=== PATIENT | male | born 1935 | race Caucasian/White ===

== ENCOUNTER 2016-11-16 01:36 | Inpatient (IN) | payer MEDICARE, OTHER ==
[~2016-11-16] VITALS: Ht 177.8 cm; Wt 80.1 kg
[2016-11-16] VITALS (7 sets, daily range): BP systolic 137–159; BP diastolic 62–82; PULSE 66–91; RESP 12–21; O2SAT 95–99
[~2016-11-16 01:36] MED LIST: AMLO10TA3 PO; ASPI-973 PO; INSU100V7 SUBQ; LISI40TA PO; MELA1TAB11 PO; METF500T4 PO; MULT-1018 PO; SIMV10TA PO; [UNRECOGNIZED DRUG - CODE] PO
--- NOTE | 2016-11-16 01:45 | ED.REPORT ---
HPI-Abd Pain M 40 and Over Date of Service Nov 16, 2016 ED Provider: Dr. Carter 81 y/o male with a hx of Myelodysplastic syndrome, HTN and DM presents to the ED complaining of sharp epigastric pain, onset a week ago. Associated sx include mild nausea today and generalized weakness. He took an Aleve an hour ago with little relief. Nursing Notes Stated Complaint: ABDOMINAL PAIN Chief Complaint: Male Abdominal Pain Nursing Notes Reviewed: Yes Allergies: Coded Allergies: fentanyl (Verified Adverse Reaction, Intermediate, Nausea, 11/16/16) Scheduled Amlodipine (Amlodipine) 10 Mg Tablet 10 MG PO DAILY Aspirin (Aspirin) 81 Mg Tablet 81 MG PO DAILY Diphenhydramine HCl (Ez Nite Sleep) 25 Mg Capsule 50 MG PO HS Insulin Glargine (Lantus U100 Insulin Vial) 100 Unit/Ml Vial 18 UNIT SUBQ HS Lisinopril (Lisinopril) 40 Mg Tablet 40 MG PO DAILY Melatonin/Pyridoxine (Melatonin 3 mg Tablet) 1 Each Tablet 1 EACH PO DAILY Metformin (Metformin) 500 Mg Tablet 1,000 MG PO BID Metformin (Metformin) 500 Mg Tablet 500 MG PO NOON Multivitamin (Multi Vitamin Daily) 1 Each Tablet 1 EACH PO DAILY Simvastatin (Zocor) 10 Mg Tablet 10 MG PO HS General Time Seen by MD: 01:44 Chief Complaint Abdominal pain Hx Obtained From: Patient Sudden in Onset?: Yes Onset Occurred: 1 week ago Symptom Duration: Since onset Progression since Onset: Unchanged Location: : Epigastric Quality: Painful Radiation: : Does not radiate Severity: Current: Moderate Severity: Maximum: Moderate Recent Healthcare: No recent doctor visit Similar Sx Previous: No Past Medical History Past Medical History Myelodysplastic syndrome Hypercholesterolemia Arthritis Reports: Diabetes mellitus, Hypertension Past Surgical History Bilateral knee arthroscopy. Reports: Tonsillectomy Smoking History Former Smoker Social History Alcohol Use: 1-3 per day (Wine) Other Social History: Good social support Ambulatory Status Independent Review of Systems Constitutional: Reports: Weakness - generalized GI: Reports: Abdominal pain, Nausea Complete sys rev & neg: except as marked. Physical Exam Initial Vital Signs Vital Signs (First) Date Time Temp Pulse Resp B/P Pulse Ox O2 Delivery O2 Flow Rate FiO2 11/16/16 01:41 36.3 91 18 157/82 99 Room Air Initial VS: Reviewed, Vital signs normal Extremities: Vascular intact, Neuro intact, No swelling, No tenderness Skin: Warm, Dry, No cyanosis Neurologic: Alert, Oriented, Nonfocal General/Constitutional: Awake, Alert, Well hydrated, Cooperative Respiratory / Chest: Atraumatic, Breath sounds NL, Breath sounds = bilat, No respiratory distress, No rales, No rhonchi, No wheezing Cardiovascular: Heart rate NL, Regular rhythm, Heart sounds NL, No gallop, No murmurs, No rubs Abdomen: Atraumatic, Soft, Non-tender Back: Atraumatic, Full range of motion Interpretation & Diagnostics Lab Results Interpretation Result Diagram: 11/16/16 0210 11/16/16 0210 Test 11/16/16 02:10 11/16/16 02:45 White Blood Count 5.5th/mm3 (3.8-10.1) Red Blood Count 2.97mil/mm3 (4.40-5.80) Hemoglobin 9.9g/dL (13.8-17.2) Hematocrit 29.2% (41.0-50.0) Mean Corpuscular Volume 98.3fL (81-100) Mean Corpuscular Hemoglobin 33.3pg (27.0-35.0) Mean Corpuscular Hemoglobin Concent 33.9% (32.0-37.0) Red Cell Distribution Width 13.8% (12.3-15.4) Platelet Count 150bil/L (150-400) Neutrophils (%) (Auto) 38% (40-74) Lymphocytes (%) (Auto) 35% (14-46) Monocytes (%) (Auto) 21% (4-12) Eosinophils (%) (Auto) 0% (0-5) Basophils (%) (Auto) 0% (0-3) Band Neutrophils % 4% (1-5) Metamyelocytes % 2% (0-0) Nucleated Red Blood Cells 2/100 WBC (0-24) Sodium Level 137mEq/L (134-144) Potassium Level 3.9mEq/L (3.5-5.2) Chloride Level 102mEq/L (97-108) Carbon Dioxide Level 19mmol/L (18-29) Blood Urea Nitrogen 25mg/dL (8-27) Creatinine 1.08mg/dL (0.76-1.27) Estimat Glomerular Filtration Rate 69mL/min (>59) Glucose Level 251mg/dL (60-99) Calcium Level 9.0mg/dL (8.5-10.1) Magnesium Level 1.7mg/dL (1.6-2.6) Total Bilirubin 0.3mg/dL (0.0-1.2) Aspartate Amino Transf (AST/SGOT) 16U/L (0-50) Alanine Aminotransferase (ALT/SGPT) 16U/L (0-44) Alkaline Phosphatase 70U/L (25-160) Total Protein 7.0g/dL (6.4-8.4) Albumin 4.1g/dL (3.4-5.0) Lipase 849U/L (13-60) Hold Gonzalez Top Tube Received (Received) Urine Color Yellow (YELLOW) Urine Appearance Clear (CLEAR,HAZY) Urine pH 5.5 (5.0-8.0) Urine Specific [place] 1.020 (1.003-1.035) Urine Protein 30mg/dL (NEG,TRACE) Urine Glucose (UA) >1000mg/dL (NEGATIVE) Urine Ketones Negativemg/dL (NEGATIVE) Urine Occult Blood Negative (NEGATIVE) Urine Nitrite Negative (NEGATIVE) Urine Bilirubin Negative (NEGATIVE) Urine Urobilinogen Normalmg/dL (NORMAL) Urine Leukocyte Esterase Negative (NEGATIVE) Urine RBC 0-2/hpf (0-2) Urine WBC 0-5/hpf (0-5) Urine Epithelial Cells Occasional/hpf (NONE-MOD) Urine Crystals None seen (NONE SEEN) Urine Bacteria Moderate/hpf (NONE-FEW) Urine Hyaline Casts None/lpf (NONE) Urine Granular Casts None seen (NONE SEEN) Urine Waxy Casts None seen (NONE SEEN) Urine Red Blood Cell Casts None seen (NONE SEEN) Urine White Blood Cell Casts None seen (NONE SEEN) Urine Mucus Present (None Seen) Urine Trichomonas None seen (NONE SEEN) Urine Yeast None (NONE SEEN) Urine Culture Reflexed Indicated Urine SP gravity = 1.015 Urine pH = 5 Urine leukocytes = trace Urine protein = ++ Urine glucose = 1000 Lab Results Interpretation: Mild anemia, elevated nonfasting glucose, pancreatitis. ECG Interpretation ECG Interpretation: Normal sinus rhtyhm. Rate 86. Frequent PVCs Time: 01:50 Interpreted by: ED physician X-Ray Chest Interpretation Chest Xray Interpretation: Result: Normal. no acute cardiopulmonary disease. View: Portable, AP & lat Interpretation / Wet Read by: Wet read ED physician CT Abd / Pelvis Interpretation Conclusion: Mild pancreatitis with no pseudocyst or phlegmon. No cholelithiasis or choledocholithiasis. Diverticulosis with no evidence of diverticulitis. Signed by Dr. Grover Carson M.D. 11/16/16 03:48 Interpretation / Wet Read by: Interpret - Radiologist Re-Eval/Medical Decision Med Decision/Clinical Course 1-year-old male with abdominal pain for the last couple of days. He is found to have elevated lipase 849, without associated elevation of transaminases or white blood count. He admits to drinking one glass of wine a day. He does have a history of elevated lipase on 1 previous occasion. He has no known gallbladder disease. CT scan shows no evidence of pseudocyst or phlegmon. He will be admitted to the hospitalist service for conservative management. Source of Hx: Old records Time of Eval: 03:10 Re-Evaluation/Progress Note: Rechecked pt. Discussed lab results, diagnosis and plan to admit. The pt understands and agrees with the plan. All questions answered. Consultation : Referral / Consult Name: Leon Pham MD Consulted With: Hospitalist Call Returned at: 03:22 Dye Machine Tender: Will see patient, Agrees with eval, Agrees with plan, Accepts admit Counseled Regarding: Diagnosis, Lab results, Need for admission Discharge & Departure Primary Impression: Pancreatitis Disposition: ADMITTED TO HOSPITAL Vital Signs - All Vital Signs Date Time Temp Pulse Resp B/P Pulse Ox O2 Delivery O2 Flow Rate FiO2 11/16/16 03:12 72 12 137/62 96 Room Air 11/16/16 01:41 36.3 91 18 157/82 99 Room Air )( All Prior VS Reviewed: Yes Referrals: Enrique Macedo MD (PCP) Scribe Attestation Portions of this note were transcribed by David Nuñez. I, , personally performed the history, physical exam and medical decision-making;I reviewed and confirmed the accuracy of the information in the transcribed note. Signed by Debbie Saldivar. 11/16/16 03:50 copies to: Enrique Macedo MD, Howard L MD Nov 16, 2016 01:45 David Nuñez Nov 16, 2016 01:55
[2016-11-16] MEDS ORDERED: Pantoprazole 4 mg/mL 10 mL Inj IVPUSH ONE (01:55)
[2016-11-16] MEDS ORDERED: 0.9% Sodium Chloride 1,000 ML IV ONE (01:55)
[2016-11-16] MEDS ORDERED: Ondansetron 2 mg/mL 2 mL Inj IVPUSH PRN (01:55)
[2016-11-16 02:33] LABS: Mean Corpuscular Hemoglobin 33.3 pg (27.0-35.0); Mean Corpuscular Volume 98.3 fL (81-100); Platelet Count 150 bil/L (150-400)
[2016-11-16 02:51] LABS: BASOPHILS % (AUTO) 0 % (0-3); EOSINOPHILS % (AUTO) 0 % (0-5); MONOCYTES % (AUTO) 21 % (4-12); NEUTROPHILS % (AUTO) 38 % (40-74)
[2016-11-16 02:55] LABS: Magnesium 1.7 mg/dL (1.6-2.6)
[2016-11-16 03:13] LABS: APPEARANCE,URINE CLEAR (CLEAR,HAZY); COLOR,URINE YELLOW (YELLOW); OCCULT BLOOD,URINE NEGATIVE (NEGATIVE); PH,URINE 5.5 (5.0-8.0); UROBILINOGEN,URINE NORMAL (NORMAL)
--- NOTE | 2016-11-16 03:46 | PCM.HPMED ---
Subjective Date of Service Nov 16, 2016 Primary Provider: Admitting Physician: Primary Care Physician: Enrique Macedo MD Attending Physician: Admit Status: From the Emergency Department Chief Complaint: Abdominal pain History of Present Illness: This is a 81-year-old male with past medical history significant for myelodysplastic syndrome, hypertension, diabetes type II who presents today for abdominal pain. The pain is present in the left upper quadrant of the abdomen and began one week ago. The pain is described as sharp and nonradiating. It has been constant for one week. When the pain first began it was associated with one day of chills which have since resolved. He is also had associated symptoms of nausea and fatigue. He does have a history of one episode of pancreatitis in the past. He drinks one glass of alcohol per day. He states that his pain has resolved since one dose of pantoprazole. He denies any chest pain or pressure, shortness of breath, vomiting, diarrhea. Initial vital signs in the emergency department were temperature 36.3, pulse 91 , respiratory rate 18, blood pressure 157/82, satting at 90% on room air. Initial laboratory values showed WBC 5.5, hemoglobin 9.9, hematocrit 29.2, and platelet 150. Glucose 251. Lipase was 849. EKG showed sinus rhythm with ventricular bigeminy and Qtc of 485. CT Abdomen and pelvis nighthawk reading: mild pancreatitis with no pseudocyst or phlegmon, no cholelithiasis or choledocholithiasis, diverticulosis with no evidence of diverticulitis. He was given a bolus of NS and pantoprazole 40mg. Review of Systems: A comprehensive review of systems was conducted with the patient and found to be negative except as above in the History of Present Illness. Allergies Coded Allergies: fentanyl (Verified Adverse Reaction, Intermediate, Nausea, 11/16/16) Home Medications amlodipine 10 mg tablet take 1 tablet (10MG) by ORAL route every day aspirin 81 mg Tab take 1 tablet (81MG) by ORAL route every day cyanocobalamin (vit B-12) 1,000 mcg tablet take 1 tablet by oral route every day Lantus Solostar 100 unit/mL (3 mL) subcutaneous insulin pen inject 18 units nightly at bedtime for diabetes. lisinopril 40 mg tablet take 1 tablet (40MG) by ORAL route every day metformin 1,000 mg tablet take 1 tablet (1000MG) by oral route 2 times every day with morning and evening meals multivitamin tablet take 1 tablet by oral route every day with food Noritate 1 % Topical Cream apply by TOPICAL route every day a thin layerto the affected area(s) pen needle, diabetic 31 gauge x 1/3" use to inject insulin daily or as directed Precision Xtra Monitor use to test blood sugars every day Precision Xtra Test strips use to test blood sugars twice every day Zocor 10 mg tablet take 1 tablet (10MG) by ORAL route every day in the evening PMH Diabetes mellitus type II Hyperlipidemia Hypertension Coronary disease Myelodysplastic syndrome History of neutropenia GERD Surgical History Bilateral knee surgery Cataract removal Tonsillectomy Family History Family history of prostate cancer in 3 of his brothers. Mother: Esophageal cancer. Maternal grandfather pancreatic cancer. Social History Occupation: patient is retired [employer] Hx Alcohol Use: Yes (glass of wine daily ) Hx Substance Use: No Hx Tobacco Use: Yes (quit in 1959) Smoking Status: Former Smoker Exam Vital Signs Vital Sign - Last Date Time Temp Pulse Resp B/P Pulse Ox O2 Delivery O2 Flow Rate FiO2 11/16/16 03:12 72 12 137/62 96 Room Air 11/16/16 01:41 36.3 Intake and Output 11/15/16 11/15/16 11/16/16 Cumulative From/Thru 15:00 23:00 07:00 11/16/16 01:41 - 11/16/16 02:19 Intake Total 1000 ml 1000 ml Balance 1000 ml 1000 ml Intake IV Total 1000 ml 1000 ml Exam General: No acute distress, well-developed, well-nourished, appropriately interactive HEENT: Normocephalic, atraumatic. External ears without defect. Pupils equal, round, and reactive to light and accommodation. Anicteric sclerae, moist conjunctivae, and no lid lag. Oropharynx free of erythema and cobble stoning with moist mucosa. Neck: Supple with full range of motion. No jugular venous distension. No bruits. No lymphadenopathy or thyromegaly. Cardiovascular: Regular rate and rhythm with no murmurs, rubs, or gallops appreciated Pulmonary: Clear to auscultation bilaterally with no crackles, wheezes, or rhonchi. Normal respiratory effort with no use of accessory muscles. Abdomen: Bowel tones present. Soft, nontender, nondistended. No hepatosplenomegaly or masses appreciated. Extremities: No clubbing, cyanosis, edema, or lymphadenopathy appreciated. Skin: Normal temperature, turgor, and texture; no rash, ulcers, or subcutaneous nodules appreciated. Neurological: Cranial nerves grossly intact. Normal muscle strength, tone, and bulk. Reflexes, coordination, and sensory function within normal limits. No known gait impairment. Psychiatric: Normal mood and affect. Lab and Diagnostics Result Diagram: 11/16/1620911/16/16209 X-Rays, CTs and MRIs CT abdomen and pelvis: CT Abdomen and pelvis nighthawk reading on 11/16/2016: mild pancreatitis with no pseudocyst or phlegmon, no cholelithiasis or choledocholithiasis, diverticulosis with no evidence of diverticulitis. Prominent prostate gland. Assessment & Plan This is a 81-year-old male with past medical history significant for 1 episode of pancreatitis, [facility] 2, hypertension, hyperlipidemia, and neutropenia who presents today for abdominal pain. The abdominal pain is present in the midepigastric region. Lipase is a 49. This is likely pancreatitis. CT scan of abdomen shows mild pancreatitis and prominent prostate gland..pancreatitis etiology includes mechanical such as gallstones, alcohol, hyperlipidemia, viral , medication induced, trauma. Medication pt is on that have been associated with pancreatitis: Class 1a Simvastatin. Class III Lisinopril, Metformin Acute pancreatitis, presumed remission, ongoing: -Lipase 849. Left upper quadrant abdominal pain. -LR at 50 mL per hour. -Patient will be nothing by mouth. -Continue Pantoprazole 40mg daily. -Morphine for pain control. -Consider GI consult. Chronic anemia, present on admission, stable: -CBC on 08/06/2016 showed a hemoglobin of 11.7. CBC today showed hemoglobin of 9.9. -He denies any hematochezia or melena -Continue to monitor. Diabetes mellitus type II, present remission, ongoing: -Blood glucose level 250 on admit. -Placed onto Humalog medium dose correction scale. -We will continue Lantus. -Hold metformin as this has been associated with pancreatitis. Hypertension, present on admission, stable: -Continue on amlodipine. Hold lisinopril due to association with pancreatitis. -Hold aspirin for now. Hyperlipidemia, present on admission, stable: -Hold Zocor as this is a class I drug-induced pancreatitis medication. -Lipid panel ordered Neutropenia, present on admission, stable: -Neutrophil percent on 08/06/2016 17.5 and on admit 38. -Continue to monitor. DVT prophylaxis with enoxaparin. Patient is admitted under inpatient status with expected length of stay greater than 2 midnights due to severity of presenting symptoms, risk of adverse event, and complexity of treatment plan. Pain Evaluation: Adequate Pain Control Resuscitation Status: CPR: Attempt Resuscitation Attending Statement The patient was seen and examined together with Dr. Randle on 11/16 and I agree with the history, exam and plan as outlined in the note above. Dale Randle DO Nov 16, 2016 03:46 Leon Pham MD Nov 16, 2016 04:50
[2016-11-16] MEDS ORDERED: Alum-Mag Hydrox-Simeth 30 mL Suspension PO PRN (04:20)
[2016-11-16] MEDS ORDERED: Glucose 40% Oral Gel 15 Gm Tube PO PRN (04:20)
[2016-11-16] MEDS ORDERED: HYDROcodone-APAP 5-325 mg Tablet PO PRN (04:20)
[2016-11-16] MEDS ORDERED: Polyethylene Glycol (PEG) 17 Gm Powder PO PRN (04:20)
[2016-11-16] MEDS ORDERED: Dextrose 10% 250 ML IV PRN (04:40)
[2016-11-16] MEDS: Lactated Ringer's 1,000 ML IV SCH ×3 (04:59→17:56)
--- NOTE | 2016-11-16 06:11 | NUR ---
Admit Note Pt. arrived on floor around 0440. Pt. is alert and oriented x3. Pt. denies pain or nausea. Pt's peripheral IV intact and patent. IV fluids started. Will continue to monitor.
[2016-11-16] MEDS: Insulin LISPRO 300 Unit/3 mL Inj SUBQ SCH ×4 (08:00→21:16)
--- NOTE | 2016-11-16 08:52 | DRSVH ---
PROCEDURE: X-RAY CHEST, TWO VIEWS ([id number]) INDICATIONS: left lower chest pain TECHNIQUE: 2 views of the chest were acquired. COMPARISON: [facility], , CHEST 2VW, 04/20/2009, 19:41. FINDINGS: Surgical changes and devices: None. Lungs and pleura: No pleural effusions or pneumothorax. Lungs are clear. Mediastinum: Mediastinal contours are normal. Heart size is normal. Bones and chest wall: No suspicious bony abnormalities. No displaced rib fractures. Soft tissues a ppear unremarkable. IMPRESSION: 1. No acute cardiopulmonary disease. Dictated by: Junior Christy M.D. on 11/16/2016 at 8:49 Approved by: Junior Christy M.D. on 11/16/2016 at 8:50
--- NOTE | 2016-11-16 08:53 | DRSVH ---
PROCEDURE: CT ABDOMEN AND PELVIS WITH CONTRAST ([id number]) INDICATIONS: pancreatitis TECHNIQUE: After the administration of intravenous contrast, 5 mm thick sections acquired from the diaphragm to the symphysis. 5 mm coronal and sagittal reformats were acquired. For radiation dose reduction, the following was used: automated exposure control, adjustment of mA and/or kV according to patient siz e. COMPARISON: None. FINDINGS: Image quality: Excellent. ABDOMEN: Lung bases: Lung bases are clear. Heart size is normal. Solid organs: Liver and spleen are normal in size and enhancement. Gallbladder is within normal [place] its. Biliary system is non dilated. Pancreas enhances normally. Mild inflammatory changes noted adj acent to the body of the pancreas compatible with acute pancreatitis. Scattered calcifications noted in the body of the pancreas compatible with sequela of chronic pancreatitis. No adrenal nodules. Kid neys demonstrate normal size and enhancement, without hydronephrosis. Right renal cyst is noted. Peritoneum and bowel: Bowel loops demonstrate normal wall thickness and caliber. Scattered colonic d iverticuli without evidence of diverticulosis. No free fluid or air. The appendix is normal. Nodes and vessels: No retroperitoneal or mesenteric adenopathy by size criteria. Aorta and inferior vena cava are normal in size. Scattered atherosclerotic calcifications involving the abdominal and p elvic vasculature. Miscellaneous: No ventral hernias. PELVIS: Genitourinary: Bladder wall thickness is normal. Prostate is enlarged. Miscellaneous: No inguinal hernias or adenopathy. Bones: No suspicious bony lesions. No vertebral body compression fractures. Spine degenerative disc disease and facet arthropathy. IMPRESSION: 1. Findings compatible with mild acute pancreatitis. 2. Prostate gland enlargement. Recommend urology consultation. 3. Colonic diverticulosis without evidence of diverticulitis. Dictated by: Keysha Treviño MD, PhD on 11/16/2016 at 8:46 Approved by: Keysha Treviño MD, PhD on 11/16/2016 at 8:52
--- NOTE | 2016-11-16 10:47 | NUR ---
Social Work: Initial Assessment D: EMR reviewed. Pt is a 81 y/o male admitted for pancreatitis per H&P. SAMANTHA met with pt at bedside to conduct initial assessment. Pt was alert and oriented x3. SW explained role and wrote phone number on white board. SW confirmed pt has completed DPOA/advanced directive ppw and has provided a copy to the hospital. Pt's insurance is Medicare and [employer]. Pt's PCP is Enrique Macedo MD. Pt has no Hx of HH or SNF. Pt has no LTC or VA insurance. Pt is independent with ADLs. Pt does not use or own any DME. Pt drives. Pt is independent at baseline. Pt lives is a single-story, level home with no steps. Pt confirmed spouse will provide transport home when pt is medically stable. Pt gave consent for SW to contact spouse/DPOA, Minal Velasco, ([phone]) for discharge planning - if necessary. SAMANTHA does not anticipate any discharge needs at this time but will continue to follow if needs arise. A: Pt who is independent at baseline. P: SW confirmed pt's spouse will provide transport home via POV when pt is medically stable. SW does not anticipate any discharge needs at this time but will continue to follow if needs arise. WILLY Finnegan Addendum: 11/16/16 at 1054 by ISIDORO JUDD SS Amended: Links added.
[2016-11-16] MEDS ORDERED: Pantoprazole 4 mg/mL 10 mL Inj IVPUSH SCH (16:00)
[2016-11-16] MEDS ORDERED: Insulin GLARgine 100 Unit/mL Syringe SUBQ SCH (21:00)
--- NOTE | 2016-11-16 23:21 | NUR ---
Activity/Pain/Blood Glucose On initial assessment, patient stated abdominal pain at a 2/10 on pain scale. Refused pain medication. Advised patient to call for pain medication if needed. Patient's blood sugar at 2100 was 228. Lantus and Humalog administered. Patient resting comfortably. Call light within reach. Care continues.
[2016-11-17 00:09] VITALS: BP 150/74; PULSE 78; RESP 20; O2SAT 97
[2016-11-17] MEDS: Lactated Ringer's 1,000 ML IV SCH ×2 (00:19→06:59)
[2016-11-17 04:50] VITALS: BP 153/71; PULSE 76; RESP 16; O2SAT 97
[2016-11-17 05:18] VITALS: PULSE 76
[2016-11-17 05:20] LABS: Mean Corpuscular Hemoglobin 33.7 pg (27.0-35.0); Mean Corpuscular Volume 99.6 fL (81-100); Platelet Count 130 bil/L (150-400)
[2016-11-17 05:39] LABS: Magnesium 1.7 mg/dL (1.6-2.6); NEUTROPHILS % (AUTO) 44 % (40-74)
[2016-11-17 05:40] LABS: BASOPHILS % (AUTO) 0 % (0-3); EOSINOPHILS % (AUTO) 0 % (0-5); MONOCYTES % (AUTO) 11 % (4-12)
[2016-11-17] MEDS: Insulin LISPRO 300 Unit/3 mL Inj SUBQ SCH ×2 (08:00→13:06)
[2016-11-17 09:37] VITALS: BP 161/71; PULSE 80; RESP 19; O2SAT 97
[2016-11-17 10:13] VITALS: PULSE 82
--- NOTE | 2016-11-17 10:20 | NUR ---
Social Work: Readiness for Discharge D: EMR reviewed. Pt is on day 1 of hospitalization. Per MD in AM multi-disciplinary rounds, pt will discharge today. SW does not anticipate any discharge needs at this time but will continue to follow if needs arise. A: Pt who is independent at baseline. P: SW confirmed pt's spouse will provide transport home via POV when pt is medically stable. SW does not anticipate any discharge needs at this time but will continue to follow if needs arise. WILLY Finnegan
[2016-11-17] MEDS ORDERED: Lisinopril 40 Tablet PO SCH (11:45)
--- NOTE | 2016-11-17 13:37 | PCM.DIMED ---
Discharge Instructions Date of Service Nov 17, 2016 Dates of Hospitalization Nov 16, 2016 at 03:51 Discharge Diagnosis Discharge Diagnosis acute pancreatitis Diet Discharge Diet: Other (slowely advance your diet, avoid large fatty meal for now) Activity Discharge Activity: No restrictions Call your provider Call your provider for: Vomitting, Other Patient Instructions Patient Instructions You were hospitalized with acute pancreatitis. You were supportively treated, symptoms were greatly improved. Please follow up with your primary doctor as scheduled. Please avoid alcohol drinking as possible culprit trigger for your pancreas inflammation. Follow-up Provider: Enrique Macedo MD Follow-up with PCP in: 2 weeks Simone Chew MD Nov 17, 2016 13:37
--- NOTE | 2016-11-17 14:16 | NUR ---
Social Work: Discharge D: EMR reviewed. Pt is on day 1 of hospitalization. Per MD in AM multi-disciplinary rounds, pt will discharge today. SW does not anticipate any discharge needs at this time but will continue to follow if needs arise. A: Pt who is independent at baseline. P: SW confirmed pt's spouse will provide transport home via POV today. SW does not anticipate any discharge needs at this time but will continue to follow if needs arise. WILLY Finnegan
--- NOTE | 2016-11-17 14:58 | PCM.DC.MED ---
Discharge Summary Date of Service Nov 17, 2016 Dates of Hospitalization Date of Hospital Admission Nov 16, 2016 at 03:51 Date of Discharge: Nov 17, 2016 Providers: Admitting Physician: Leon Pham MD Primary Care Physician: Enrique Macedo MD Attending Physician: Leon Pham MD Diagnosis at Time of Discharge Diagnosis at Time of Discharge acute pancreatitis Procedures XRay, CTs & MRIs CT abdomen and pelvis: CT Abdomen and pelvis nighthawk reading on 11/16/2016: mild pancreatitis with no pseudocyst or phlegmon, no cholelithiasis or choledocholithiasis, diverticulosis with no evidence of diverticulitis. Prominent prostate gland. Brief History History of present illness obtained on December 16 by This is a 81-year-old male with past medical history significant for myelodysplastic syndrome, hypertension, diabetes type II who presents today for abdominal pain. The pain is present in the left upper quadrant of the abdomen and began one week ago. The pain is described as sharp and nonradiating. It has been constant for one week. When the pain first began it was associated with one day of chills which have since resolved. He is also had associated symptoms of nausea and fatigue. He does have a history of one episode of pancreatitis in the past. He drinks one glass of alcohol per day. He states that his pain has resolved since one dose of pantoprazole. He denies any chest pain or pressure, shortness of breath, vomiting, diarrhea. Initial vital signs in the emergency department were temperature 36.3, pulse 91 , respiratory rate 18, blood pressure 157/82, satting at 90% on room air. Initial laboratory values showed WBC 5.5, hemoglobin 9.9, hematocrit 29.2, and platelet 150. Glucose 251. Lipase was 849. EKG showed sinus rhythm with ventricular bigeminy and Qtc of 485. CT Abdomen and pelvis nighthawk reading: mild pancreatitis with no pseudocyst or phlegmon, no cholelithiasis or choledocholithiasis, diverticulosis with no evidence of diverticulitis. He was given a bolus of NS and pantoprazole 40mg. Hospital Course This is a 81-year-old male with past medical history significant for 1 episode of pancreatitis, [facility], hypertension, hyperlipidemia, and neutropenia who presents today for abdominal pain. The abdominal pain is present in the midepigastric region. Lipase is a 49. This is likely pancreatitis. CT scan of abdomen shows mild pancreatitis and prominent prostate gland..pancreatitis etiology includes mechanical such as gallstones, alcohol, hyperlipidemia, viral , medication induced, trauma. Medication pt is on that have been associated with pancreatitis: Class 1a Simvastatin. Class III Lisinopril, Metformin acute dx: Acute pancreatitis, CT showed signs of pancreatitis, lipase was [address] showed Gallbladder is within normal limits. Biliary system is non dilated. Pancreas enhances normally. Mild inflammatory changes noted adjacent to the body of the pancreas compatible with acute pancreatitis. Scattered calcifications noted in the body of the pancreas compatible with sequela of chronic pancreatitis. patient was started on LR50cc, increased to 150cc, lipase decreased to 100s. Pain was minimal, diet was advanced to soft, tolerated well. It was Given patient's remote hx, -Lipase 849. Left upper quadrant abdominal pain. -LR at 50 mL per hour. -Patient will be nothing by mouth. -Continue Pantoprazole 40mg daily. -Morphine for pain control. -Consider GI consult. Chronic anemia, present on admission, stable: -CBC on 08/06/2016 showed a hemoglobin of 11.7. CBC today showed hemoglobin of 9.9. -He denies any hematochezia or melena -Continue to monitor. Diabetes mellitus type II, present remission, ongoing: -Blood glucose level 250 on admit. -Placed onto Humalog medium dose correction scale. -We will continue Lantus. -Hold metformin as this has been associated with pancreatitis. Hypertension, present on admission, stable: -Continue on amlodipine. Hold lisinopril due to association with pancreatitis. -Hold aspirin for now. Hyperlipidemia, present on admission, stable: -Hold Zocor as this is a class I drug-induced pancreatitis medication. -Lipid panel ordered Neutropenia, present on admission, stable: -Neutrophil percent on 08/06/2016 17.5 and on admit 38. -Continue to monitor. DVT prophylaxis with enoxaparin. Patient is admitted under inpatient status with expected length of stay greater than 2 midnights due to severity of presenting symptoms, risk of adverse event, and complexity of treatment plan. Exam Vital Signs (Last) Date Time Temp Pulse Resp B/P Pulse Ox O2 Delivery O2 Flow Rate FiO2 11/17/16 10:13 82 11/17/16 09:37 37.0 19 161/71 97 Room Air Test 11/16/16 02:10 11/16/16 02:45 11/16/16 04:55 11/17/16 05:00 Nucleated Red Blood Cells 2/100 WBC (0-24) Hemoglobin A1c 8.8% (4.8-5.6) Hold Gonzalez Top Tube Received (Received) Urine Color Yellow (YELLOW) Urine Appearance Clear (CLEAR,HAZY) Urine pH 5.5 (5.0-8.0) Urine Specific [place] 1.020 (1.003-1.035) Urine Protein 30mg/dL (NEG,TRACE) Urine Glucose (UA) >1000mg/dL (NEGATIVE) Urine Ketones Negativemg/dL (NEGATIVE) Urine Occult Blood Negative (NEGATIVE) Urine Nitrite Negative (NEGATIVE) Urine Bilirubin Negative (NEGATIVE) Urine Urobilinogen Normalmg/dL (NORMAL) Urine Leukocyte Esterase Negative (NEGATIVE) Urine RBC 0-2/hpf (0-2) Urine WBC 0-5/hpf (0-5) Urine Epithelial Cells Occasional/hpf (NONE-MOD) Urine Crystals None seen (NONE SEEN) Urine Bacteria Moderate/hpf (NONE-FEW) Urine Hyaline Casts None/lpf (NONE) Urine Granular Casts None seen (NONE SEEN) Urine Waxy Casts None seen (NONE SEEN) Urine Red Blood Cell Casts None seen (NONE SEEN) Urine White Blood Cell Casts None seen (NONE SEEN) Urine Mucus Present (None Seen) Urine Trichomonas None seen (NONE SEEN) Urine Yeast None (NONE SEEN) Urine Culture Reflexed Indicated Triglycerides Level 100mg/dL (0-149) Cholesterol Level 78mg/dL (100-199) LDL Cholesterol, Calculated 37.000mg/dL (0-99) VLDL Cholesterol 20.000mg/dL HDL Cholesterol 21mg/dL (>39) Cholesterol/HDL Ratio 3.71 (0.0-4.4) White Blood Count 4.0th/mm3 (3.8-10.1) Red Blood Count 2.73mil/mm3 (4.40-5.80) Hemoglobin 9.2g/dL (13.8-17.2) Hematocrit 27.2% (41.0-50.0) Mean Corpuscular Volume 99.6fL (81-100) Mean Corpuscular Hemoglobin 33.7pg (27.0-35.0) Mean Corpuscular Hemoglobin Concent 33.8% (32.0-37.0) Red Cell Distribution Width 13.8% (12.3-15.4) Platelet Count 130bil/L (150-400) Neutrophils (%) (Auto) 44% (40-74) Lymphocytes (%) (Auto) 36% (14-46) Monocytes (%) (Auto) 11% (4-12) Eosinophils (%) (Auto) 0% (0-5) Basophils (%) (Auto) 0% (0-3) Band Neutrophils % 8% (1-5) Metamyelocytes % 2% (0-0) Hematology Comments Sodium Level 142mEq/L (134-144) Potassium Level 3.7mEq/L (3.5-5.2) Chloride Level 106mEq/L (97-108) Carbon Dioxide Level 21mmol/L (18-29) Blood Urea Nitrogen 11mg/dL (8-27) Creatinine 0.93mg/dL (0.76-1.27) Estimat Glomerular Filtration Rate 82mL/min (>59) Glucose Level 107mg/dL (60-99) Calcium Level 8.7mg/dL (8.5-10.1) Magnesium Level 1.7mg/dL (1.6-2.6) Total Bilirubin 0.4mg/dL (0.0-1.2) Aspartate Amino Transf (AST/SGOT) 16U/L (0-50) Alanine Aminotransferase (ALT/SGPT) 13U/L (0-44) Alkaline Phosphatase 71U/L (25-160) Total Protein 6.0g/dL (6.4-8.4) Albumin 3.7g/dL (3.4-5.0) Lipase 143U/L (13-60) Discharge Medications Discharge Medications Amlodipine (Amlodipine) 10 Mg Tablet 10 MG PO DAILY (Reported) Aspirin (Aspirin) 81 Mg Tablet 81 MG PO DAILY (Reported) Insulin Glargine (Lantus U100 Insulin Vial) 100 Unit/Ml Vial 18 UNIT SUBQ HS ( Reported) Lisinopril (Lisinopril) 40 Mg Tablet 40 MG PO DAILY (Reported) Melatonin/Pyridoxine (Melatonin 3 mg Tablet) 1 Each Tablet 1 EACH PO DAILY ( Reported) Metformin (Metformin) 500 Mg Tablet 1,000 MG PO BID (Reported) Multivitamin (Multi Vitamin Daily) 1 Each Tablet 1 EACH PO DAILY (Reported) Simvastatin (Zocor) 10 Mg Tablet 10 MG PO HS (Reported) Followup Plan Discharge Diet: Other (slowely advance your diet, avoid large fatty meal for now) Discharge Activity: No restrictions Patient Instructions You were hospitalized with acute pancreatitis. You were supportively treated, symptoms were greatly improved. Please follow up with your primary doctor as scheduled. Please avoid alcohol drinking as possible culprit trigger for your pancreas inflammation. Follow-up Provider: Enrique Macedo MD Follow-up with PCP in: 2 weeks Simone Chew MD Nov 17, 2016 14:58
--- NOTE | 2016-11-17 15:48 | NUR ---
Discharge Patient discharged home with this afternoon. Patient given verbal and written home care instructions and agreed to understanding them. Patient will follow up with primary Dr in 2 weeks and will return if symptoms come back or worsen.
== END 2016-11-17 14:45 | disposition home or self-care (01) | DRG 440 ==
LOC: SED 01:36 → OSC 03:51
PROVIDERS: ADMIT Hospitalist; ATTEND Hospitalist
DX: K85.90 Acute pancreatitis without necrosis or infection, unspecified (principal); Z79.82 Long term (current) use of aspirin; Z79.4 Long term (current) use of insulin; Z79.84 Long term (current) use of oral hypoglycemic drugs; Z87.891 Personal history of nicotine dependence; D64.9 Anemia, unspecified; E11.9 Type 2 diabetes mellitus without complications; I10 Essential (primary) hypertension; E78.5 Hyperlipidemia, unspecified; D70.9 Neutropenia, unspecified

== ENCOUNTER 2016-11-20 14:53 | Observation (INO) | payer MEDICARE, OTHER ==
[~2016-11-20] VITALS: Ht 177.8 cm; Wt 80.4 kg
[2016-11-20] VITALS (13 sets, daily range): BP systolic 109–158; BP diastolic 51–72; PULSE 69–92; RESP 16–21; O2SAT 96–100
[~2016-11-20 14:53] MED LIST changes: -[UNRECOGNIZED DRUG - CODE] PO
[2016-11-20 15:51] LABS: BASOPHILS % (AUTO) 0.2 % (0-3)
--- NOTE | 2016-11-20 15:54 | ED.REPORT ---
HPI-Chest Pain 40 and Over Date of Service Nov 20, 2016 ED Provider: Vin Carreon MD Pt is a 81 year old male with a history of type II DM, HTN, hyperlipidemia, CAD , recent pancreatitis, and myelodysplastic syndrome who presents to the ED complaining of left upper chest pain that radiates into his left shoulder that started prior to arrival. Pt c/o associated nausea. He denies dyspnea and diaphoresis. Per spouse, they were in [place] when the pt said he had to go sit in the car because he wasn't feeling well. Per spouse, the pt reported that he was feeling chest pain prior to arrival. He denies any history of heart disease or heart attacks although the chart indicates a history of CAD. His last heart stress test was normal on 04/2009. Pt was admitted to [facility] after presenting to the ED on 11/16/16 with abdominal pain and was diagnosed with acute pancreatitis. Nursing Notes Stated Complaint: CHEST PAIN Chief Complaint: Chest Pain Nursing Notes Reviewed: Yes Allergies: Coded Allergies: fentanyl (Verified Adverse Reaction, Intermediate, Nausea, 11/20/16) Scheduled Amlodipine (Amlodipine) 10 Mg Tablet 10 MG PO DAILY Aspirin (Aspirin) 81 Mg Tablet 81 MG PO DAILY Insulin Glargine (Lantus U100 Insulin Vial) 100 Unit/Ml Vial 18 UNIT SUBQ HS Lisinopril (Lisinopril) 40 Mg Tablet 40 MG PO DAILY Melatonin/Pyridoxine (Melatonin 3 mg Tablet) 1 Each Tablet 1 EACH PO DAILY Metformin (Metformin) 500 Mg Tablet 1,000 MG PO BID Multivitamin (Multi Vitamin Daily) 1 Each Tablet 1 EACH PO DAILY Simvastatin (Zocor) 10 Mg Tablet 10 MG PO HS General Time Seen by MD: 15:53 Chief Complaint Chest pain Hx Obtained From: Patient Arrived By: Walk-in Sudden in Onset?: No Onset Occurred: Just prior to arrival Symptom Duration: Since onset Location: : Chest left Quality: Painful Radiation: : Shoulder left Migration/Movement: Reports: None Severity: Current: Moderate Severity: Maximum: Moderate Recent Healthcare: Recent doctor visit Similar Sx Previous: No Risk Factors HEART Score HEART for MACE: Mod index of susp (1), Normal ECG (0), Age 65 or over (2), 1-2 CAD risk factors (1), < or = to NL troponin (0) HEART for MACE Score: 4-7 (mod risk 12%-16.6%) Past Medical History Past Medical History Myelodysplastic syndrome Hypercholesterolemia Arthritis Pancreatitis Reports: Coronary artery disease, Diabetes mellitus, Hypertension Past Surgical History Bilateral knee arthroscopy. Reports: Tonsillectomy Smoking History Former Smoker (Very remote) Social History Alcohol Use: 1-3 per day Other Social History: Good social support Ambulatory Status Independent Review of Systems Constitutional: Denies: Chills, Fever Respiratory: Denies: Non-productive cough, Pleuritic pain, Shortness of breath Cardiovascular: Reports: Chest pain Musculoskeletal: Reports: Extremity pain Complete sys rev & neg: except as marked. Physical Exam Initial Vital Signs Vital Signs (First) Date Time Temp Pulse Resp B/P Pulse Ox O2 Delivery O2 Flow Rate FiO2 11/20/16 15:03 36.7 92 16 143/72 98 Room Air Initial VS: Reviewed, Vital signs normal Head / Eyes: Atraumatic, Normocephalic, PERRL ENT: Mucous membranes moist, Conjunctiva normal, No scleral icterus Neck: Supple, Full range of motion Extremities: Vascular intact, Neuro intact Skin: Warm, Dry, No cyanosis Neurologic: Alert, Oriented, Nonfocal Psychiatric: Mood/affect normal, Behavior normal General/Constitutional: Awake, Alert, No acute distress, Cooperative, Not toxic appearing Respiratory / Chest: Atraumatic, Breath sounds NL, Breath sounds = bilat, No respiratory distress No chest pain with palpation Cardiovascular: Heart rate NL, Regular rhythm, Heart sounds NL Abdomen: Atraumatic, Soft, Non-tender Interpretation & Diagnostics Lab Results Interpretation Result Diagram: 11/20/16 1535 11/20/16 1535 Test 11/20/16 15:35 White Blood Count 6.2th/mm3 (3.8-10.1) Red Blood Count 2.86mil/mm3 (4.40-5.80) Hemoglobin 9.4g/dL (13.8-17.2) Hematocrit 28.8% (41.0-50.0) Mean Corpuscular Volume 100.7fL (81-100) Mean Corpuscular Hemoglobin 32.9pg (27.0-35.0) Mean Corpuscular Hemoglobin Concent 32.6% (32.0-37.0) Red Cell Distribution Width 13.8% (12.3-15.4) Platelet Count 141bil/L (150-400) Neutrophils (%) (Auto) 55.1% (40-74) Lymphocytes (%) (Auto) 20.7% (14-46) Monocytes (%) (Auto) 18.1% (4-12) Eosinophils (%) (Auto) 0.3% (0-5) Basophils (%) (Auto) 0.2% (0-3) Sodium Level 136mEq/L (134-144) Potassium Level 4.3mEq/L (3.5-5.2) Chloride Level 103mEq/L (97-108) Carbon Dioxide Level 18mmol/L (18-29) Blood Urea Nitrogen 30mg/dL (8-27) Creatinine 1.50mg/dL (0.76-1.27) Estimat Glomerular Filtration Rate 48mL/min (>59) Glucose Level 405mg/dL (60-99) Calcium Level 9.4mg/dL (8.5-10.1) Magnesium Level 1.6mg/dL (1.6-2.6) Total Bilirubin 0.4mg/dL (0.0-1.2) Aspartate Amino Transf (AST/SGOT) 21U/L (0-50) Alanine Aminotransferase (ALT/SGPT) 20U/L (0-44) Alkaline Phosphatase 84U/L (25-160) Troponin T < 0.010ug/L (0.0-0.011) Total Protein 7.0g/dL (6.4-8.4) Albumin 4.2g/dL (3.4-5.0) Lipase 111U/L (13-60) Hold Gonzalez Top Tube Received (Received) ECG Interpretation ECG Interpretation: Sinus rhythm with a rate of 89 Ventricular premature complex Nonspecific intraventruclar conduction delay Time: 15:12 Interpreted by: ED physician X-Ray Chest Interpretation Chest Xray Interpretation: IMPRESSION: Stable chest. No acute cardiopulmonary process is evident. Dictated by: Paresh Hilario M.D. on 11/20/2016 at 15:11 View: Portable, AP & lat Interpretation / Wet Read by: Interpret - Radiologist Re-Eval/Medical Decision Source of Hx: Old records Time of Eval: 16:51 Patient Status: Condition unchanged Re-Evaluation/Progress Note: Pt rechecked. His chest pain is still present. Informed pt of plan for admission. Pt understands and agrees with plan for admission. All questions addressed. Consultation : Referral / Consult Name: Georgie Granda DO Call Returned at: 17:12 Helper Driver: Will see patient, Agrees with eval, Agrees with plan, Accepts admit Counseled Regarding: Diagnosis, Lab results, Need for admission Discharge & Departure Primary Impression: Chest pain Chest pain type: unspecified Qualified Code: R07.9 - Chest pain, unspecified Disposition: ADMITTED TO HOSPITAL Discharge Condition All VS Reviewed: Yes Condition: Stable Referrals: Enrique Macedo MD (PCP) Elliibe Attestation Portions of this note were transcribed by Aman Jarquin and Melony Middleton. I, Dr. Carreon personally performed the history, physical exam and medical decision-making; I reviewed and confirmed the accuracy of the information in the transcribed note. Signed by: Aman Jarquin and Debbie Villela, 11/20/16 and 17:00. copies to: Enrique Macedo MD, Kirk H MD Nov 20, 2016 15:54 Melony Macias Nov 20, 2016 16:04 AMAN JARQUIN Nov 20, 2016 17:03 AMAN JARQUIN Nov 20, 2016 17:03
--- NOTE | 2016-11-20 16:13 | DRSVH ---
PROCEDURE: X-RAY CHEST, TWO VIEWS ([id number]) INDICATIONS: chest pain TECHNIQUE: 2 views of the chest were acquired. COMPARISON: [facility], CR, XR CHEST 2VW, 11/16/2016, 2:08. FINDINGS: Surgical changes and devices: None. Lungs and pleura: No pleural effusions or pneumothorax. Lungs are clear. Mediastinum: Mediastinal contours are normal. Heart size is normal. There is aortic atherosclerosi s. Bones and chest wall: No suspicious bony abnormalities. There appears to be chondrocalcinosis of th e right shoulder. Mild to moderate degenerative changes of the imaged spine and shoulders are incide ntally noted. Soft tissues appear unremarkable. IMPRESSION: Stable chest. No acute cardiopulmonary process is evident. Dictated by: Paresh Hilario M.D. on 11/20/2016 at 15:11 Approved by: Paresh Hilario M.D. on 11/20/2016 at 15:11
[2016-11-20 16:17] LABS: TROPONIN T < 0.010 ug/L (0.0-0.011)
[2016-11-20 16:19] LABS: EOSINOPHILS % (AUTO) 0.3 % (0-5); MONOCYTES % (AUTO) 18.1 % (4-12); Mean Corpuscular Hemoglobin 32.9 pg (27.0-35.0); Mean Corpuscular Volume 100.7 fL (81-100); NEUTROPHILS % (AUTO) 55.1 % (40-74); Platelet Count 141 bil/L (150-400)
[2016-11-20 16:27] LABS: Lipase 111 U/L (13-60); Magnesium 1.6 mg/dL (1.6-2.6)
[2016-11-20] MEDS ORDERED: Heparin 5,000 Unit/mL Inj IVPUSH PRN ×2 (17:00→17:20)
[2016-11-20] MEDS ORDERED: Heparin 5,000 Unit/mL Inj IVPUSH ONE (17:00)
[2016-11-20] MEDS ORDERED: Heparin 25K Unit/500mL 0.45 NS 25,000 UNIT in IV Premix 1 EACH IV SCH ×2 (17:00→17:20)
[2016-11-20] MEDS ORDERED: Ondansetron 2 mg/mL 2 mL Inj IVPUSH ONE (17:00)
[2016-11-20] MEDS ORDERED: Nitroglycerin 2% 1 Gm Ointment TOPICAL SCH (17:05)
[2016-11-20] MEDS ORDERED: 0.9% Sodium Chloride 1,000 ML IV SCH (17:19)
[2016-11-20] MEDS ORDERED: Atropine 1 mg/10 mL (Code) Syringe IVPUSH PRN (17:20)
[2016-11-20] MEDS ORDERED: Polyethylene Glycol (PEG) 17 Gm Powder PO PRN (17:20)
[2016-11-20] MEDS ORDERED: Alum-Mag Hydrox-Simeth 30 mL Suspension PO PRN ×2 (17:20→17:25)
[2016-11-20] MEDS ORDERED: Ondansetron 2 mg/mL 2 mL Inj IVPUSH PRN ×2 (17:20→17:25)
[2016-11-20] MEDS ORDERED: Senna-Docusate 8.6-50 mg Tablet PO PRN (17:20)
[2016-11-20] MEDS ORDERED: CYAN500 PO (18:16)
[2016-11-20] MEDS ORDERED: METF1000 PO (18:16)
[2016-11-20 18:22] LABS: Creatine Kinase 56 U/L (21-232)
--- NOTE | 2016-11-20 18:36 | PCM.HPMED ---
Subjective Date of Service Nov 20, 2016 Primary Provider: Admitting Physician: Primary Care Physician: Enrique Macedo MD Attending Physician: Admit Status: From the Emergency Department Chief Complaint: "chest pain" History of Present Illness: Mr. Velasco is an 81 year old man with history of diabetes mellitus type II, hypertension, hyperlipidemia, recent pancreatitis, and myelodysplastic syndrome who presented to the hospital for upper chest pain that radiates into his left shoulder that started around 02:30 PM. He got lightheaded while walking around shopping with his , which he describes as feeling tired and exhausted but not like he was going to pass out. He then went to his car to rest. He was sitting in the car in the passenger seat when the chest pain started. He reports that he woke up this morning and felt "blah" all day. His pain has been constant since it started and an 8/10. It does not get worse with movements or inspiration. It improved after nitroglycerin paste to a 4/10. He also had some mild nausea and dyspnea, which have resolved. It is different from the pain that he had with pancreatitis. He has never had pain like this before. He exercises regularly and did not have chest pain or dyspnea with exercise. He does not have diaphoresis, palpitations, leg edema, abdominal pain, numbness, tingling, focal weakness, trouble speaking, trouble swallowing, melena, hematochezia, bruising, rashes, nasal congestion, sore throat, or cough. He was constipated during last hospitalization, but it has improved. He has had urinary frequency but no dysuria. In the emergency department, he continued to have chest pain which improved after nitroglycerin paste was applied but did not resolve. EKG did not have concerning ST segment changes. Initial troponin was negative. Chest x-ray did not show any acute cardiopulmonary changes. He was also given a full dose of aspirin, metoprolol tartrate 25 mg, and a dose of ondansetron. Review of Systems: A comprehensive review of systems was conducted with the patient and found to be negative except as above in the History of Present Illness. Allergies Coded Allergies: fentanyl (Verified Adverse Reaction, Intermediate, Nausea, 11/20/16) Home Medications Brandon Velasco [id number] 1935 06/07/2016 08:40 AM 1/5 Medication Name Directions amlodipine 10 mg tablet take 1 tablet (10MG) by ORAL route every day aspirin 81 mg Tab take 1 tablet (81MG) by ORAL route every day cyanocobalamin (vit B-12) 1,000 mcg tablet take 1 tablet by oral route every day Lantus Solostar 100 unit/mL (3 mL) subcutaneous insulin pen inject 18 units nightly at bedtime for diabetes. lisinopril 40 mg tablet take 1 tablet (40MG) by ORAL route every day metformin 1,000 mg tablet take 1 tablet (1000MG) by oral route 2 times every day with morning and evening meals multivitamin tablet take 1 tablet by oral route every day with food Noritate 1 % Topical Cream apply by TOPICAL route every day a thin layerto the affected area(s) pen needle, diabetic 31 gauge x 1/3" use to inject insulin daily or as directed Precision Xtra Monitor use to test blood sugars every day Precision Xtra Test strips use to test blood sugars twice every day Zocor 10 mg tablet take 1 tablet (10MG) by ORAL route every day in the evening PMH Diabetes mellitus type II on metformin and insulin Hypertension Hyperlipidemia Pancreatitis Myelodysplastic syndrome not taking any treatment and stable Gastroesophageal reflux disease Prostate enlargement Surgical History Bilateral knee surgery (arthroscopic) Bilateral cataract removal Tonsillectomy Family History Father side is unknown because his father is estranged Mother had esophageal cancer, maternal grandfather pancreatic cancer, and 3 brothers with prostate cancer Social History Occupation: Retired [employer] Hx Alcohol Use: Yes (Glass of wine a day quit after last stay) Hx Substance Use: No Hx Tobacco Use: Yes (quit in 1959) Smoking Status: Former Smoker (Very remote quit ) Living Arrangement: with Family Exam Vital Signs Vital Sign - Last Date Time Temp Pulse Resp B/P Pulse Ox O2 Delivery O2 Flow Rate FiO2 11/20/16 16:51 87 20 158/57 99 Room Air 11/20/16 15:03 36.7 Exam General: Elderly man lying in bed comfortably in no acute distress who appears younger than stated age, well-developed, well-nourished, appropriately interactive HEENT: Normocephalic, atraumatic. External ears without defect. Pupils equal, round, and reactive to light and accommodation. Anicteric sclerae, moist conjunctivae, and no lid lag. Oropharynx free of erythema and cobble stoning with moist mucosa. Neck: Supple with full range of motion. No jugular venous distension. Right carotid bruit. No lymphadenopathy or thyromegaly. Cardiovascular: Regular rate and rhythm with no murmurs, rubs, or gallops appreciated Pulmonary: Clear to auscultation bilaterally with no crackles, wheezes, or rhonchi. Normal respiratory effort with no use of accessory muscles. Abdomen: Bowel tones present. Soft, nontender, nondistended. No hepatosplenomegaly or masses appreciated. Extremities: No clubbing, cyanosis, or edema appreciated. Skin: Normal temperature, turgor, and texture; no rash, ulcers, or subcutaneous nodules appreciated. Neurological: Cranial nerves grossly intact. Normal muscle strength, tone, and bulk. Coordination and sensory function within normal limits. No known gait impairment. Psychiatric: Normal mood and affect. Alert and oriented to person, place, and time. Lab and Diagnostics Result Diagram: 11/20/16 1535 11/20/16 1535 X-Rays, CTs and MRIs PROCEDURE: X-RAY CHEST, TWO VIEWS IMPRESSION: Stable chest. No acute cardiopulmonary process is evident. Approved by: Paresh Hilario M.D. on 11/20/2016 at 15:11 12-lead ECG Sinus rhythm, premature ventricular contraction, non-specific intraventricular conduction delay Assessment & Plan Mr. Velasco is an 81 year old man with history of diabetes mellitus type II, hypertension, hyperlipidemia, recent pancreatitis, and myelodysplastic syndrome who presented to the hospital for upper chest pain Possible unstable angina, acute, present on admission, active. - EKG does not have concerning ST segment changes and initial troponin negative. He has chest pain rest, which improved with nitroglycerin. He was given a loading dose of aspirin and a dose of metoprolol tartrate. He has hypertension, hyperlipidemia, and diabetes mellitus. - Differential diagnosis includes but not limited to: unstable angina, GERD, recurrent pancreatitis, pneumonia, or pulmonary embolism. He has history of GERD and was hospitalized for pancreatitis 4 days ago. CXR did not show acute pulmonary changes. He does not have leg pain or swelling and his pain is not pleuritic. - Continue to trend troponin and CK-MB - EKGs as needed for chest pain - Nitroglycerin and morphine as needed for pain - Heparin drip per cardiac protocol - Aspirin 81 mg once daily, continue lisinopril 40 mg once daily, atorvastatin 40 mg once daily at bedtime, metoprolol 12.5 mg twice daily - Echocardiogram ordered for tomorrow morning and will consider further work up based on the results of echocardiogram as well as troponin levels Recent pancreatitis, subacute, present on admission, active. - Hospitalized 11/16/16 to 11/17/16 for acute pancreatitis and lipase was [address] scan showed mild pancreatitis. Etiology uncertain. - Lipase elevated at 111, improved compared to previous hospitalization and no abdominal pain today. - Continue to monitor Diabetes mellitus type II on metformin and insulin, chronic. - HgbA1c 8.8% on 11/16/16 - Glargine insulin 15 units at bedtime with low dose correctional scale for now - Hold home metformin for now - Monitor and adjust accordingly Essential hypertension, chronic. - Continue amlodipine 10 mg and lisinopril 40 mg once daily - Start metoprolol tartrate 12.5 mg BID - Continue lisinopril 40mg QD - Hold Metoprolol, amlodipine, and lisinopril in the AM for possible stress test Hyperlipidemia, chronic. - LDL 37, HDL 21 on 11/16/16 - Switched to atorvastatin 40 mg once daily at bedtime Myelodysplastic syndrome, chronic. - Follows with oncology, not currently actively being treated and stable - Chronic stable anemia and stable thrombocytopenia Gastroesophageal reflux disease, chronic. - Maalox as needed Acetaminophen as needed for pain or fever Miralax and Senna as needed for constipation Zofran as needed for nausea or vomiting CODE STATUS: FULL CODE Patient Status: Patient is admitted under observation status with expected length of stay less than 2 midnights due to risk of adverse event. VTE Prophylaxis: Other (heparin drip) Resuscitation Status: CPR: Attempt Resuscitation Time spent 60 minutes Attending Statement The patient was seen and examined together with Dr. Lenz on 11/20/16 and I have added additional information to the note above. Sissy Lenz DO Nov 20, 2016 17:34 Georgie Granda DO Nov 21, 2016 17:34
[2016-11-20] MEDS ORDERED: Glucose 40% Oral Gel 15 Gm Tube PO PRN (19:20)
[2016-11-20] MEDS ORDERED: Insulin GLARgine 100 Unit/mL Syringe SUBQ SCH (21:00)
[2016-11-20] MEDS: Insulin LISPRO 300 Unit/3 mL Inj SUBQ SCH (21:20)
[2016-11-20] MEDS: Sodium Chloride LOK Flush 10 mL Syringe IVFLUSH SCH (21:55)
[2016-11-20 22:53] LABS: Creatine Kinase 48 U/L (21-232)
[2016-11-21 03:11] LABS: Mean Corpuscular Hemoglobin 32.9 pg (27.0-35.0); Mean Corpuscular Volume 101.6 fL (81-100); Platelet Count 112 bil/L (150-400)
[2016-11-21 03:37] LABS: TROPONIN T 0.01 ug/L (0.0-0.011)
[2016-11-21 03:39] LABS: BASOPHILS % (AUTO) 0 % (0-3); EOSINOPHILS % (AUTO) 0 % (0-5); MONOCYTES % (AUTO) 2 % (4-12); NEUTROPHILS % (AUTO) 42 % (40-74)
--- NOTE | 2016-11-21 06:00 | NUR ---
Admit/CP Pt arrived on unit at 2004. Pt was able to ambulate to bed and scale with steady gait. A&Ox3. Pt states CP continues at 5/10 despite nitro paste. Pt describes as ache that spreads across chest from shoulder to shoulder. Does not change with palpation or inspiration. VSS. EKG done, no changes, shows SR with 1st degree. Nitro tabs given x2 with no change. Morphine given per orders, pain decreased to 4/10. BP remains stable. Maalox given as well. Additional dose of Morphine given. Pain down to 2/10. Call to Dr. Wilmer MD made aware of status. Additional troponin ordered. Heparin gtt running per protocol. On Tele. Pt later states that pain is localized to left shoulder with 8/10 pain and pain is pinpointed and palpable, worse with pressure. MD made aware. Pt medicated with Tylenol per MD orders. Admission completed by pt verbal history, see flowsheet for full assessment.
[2016-11-21 06:01] VITALS: BP 113/60; PULSE 71; RESP 18; O2SAT 98
[2016-11-21 07:45] VITALS: BP 119/54; PULSE 64; RESP 16; O2SAT 95
[2016-11-21] MEDS: Insulin LISPRO 300 Unit/3 mL Inj SUBQ SCH ×3 (09:22→17:46)
[2016-11-21] MEDS: Sodium Chloride LOK Flush 10 mL Syringe IVFLUSH SCH ×2 (09:23→17:45)
[2016-11-21 11:03] VITALS: PULSE 67
[2016-11-21 11:35] VITALS: BP_SYST 157; BP_SYST 164; BP_DIAS 67; BP_DIAS 71; PULSE 70; RESP 20; O2SAT 98
[2016-11-21 11:36] LABS: APPEARANCE,URINE HAZY (CLEAR,HAZY); COLOR,URINE YELLOW (YELLOW); OCCULT BLOOD,URINE NEGATIVE (NEGATIVE); PH,URINE 5.5 (5.0-8.0); UROBILINOGEN,URINE NORMAL (NORMAL)
--- NOTE | 2016-11-21 13:51 | PCM.PNMED ---
Subjective Date of Service Nov 21, 2016 Subjective Mr. Velasco is an 81 year old man with history of diabetes mellitus type II, hypertension, hyperlipidemia, recent pancreatitis, and myelodysplastic syndrome who presented to the hospital for upper chest pain. This morning, he reports that his chest pain resolved. He only has left shoulder tenderness when he pushes on a certain spot. It felt better after Tylenol. He does not have dyspnea or palpitations. Exam Vital Signs Vital Sign - Last Date Time Temp Pulse Resp B/P Pulse Ox O2 Delivery O2 Flow Rate FiO2 11/21/16 11:35 36.6 70 20 157/71 98 Room Air Intake and Output 11/20/16 11/20/16 11/21/16 Cumulative From/Thru 15:00 23:00 07:00 11/20/16 15:03 - 11/21/16 06:11 Intake Total 750 ml 750 ml Output Total 600 ml 600 ml Balance 150 ml 150 ml Intake Oral 750 ml 750 ml Output Urine Total 600 ml 600 ml Exam General: Elderly man lying in bed comfortably in no acute distress who appears younger than stated age, well-developed, well-nourished, appropriately interactive HEENT: Normocephalic, atraumatic. . Neck: Supple with full range of motion. Cardiovascular: Regular rate and rhythm with no murmurs, rubs, or gallops appreciated Pulmonary: Clear to auscultation bilaterally with no crackles, wheezes, or rhonchi. Normal respiratory effort with no use of accessory muscles. Abdomen: Bowel tones present. Soft, nontender, nondistended. Extremities:Tenderpoint at left acromion. No clubbing, cyanosis, or edema appreciated. Skin: Normal temperature, turgor, and texture; no rash or ulcers appreciated. Neurological: Cranial nerves grossly intact. Grossly normal muscle strength, tone, and bulk. Psychiatric: Normal mood and affect. Alert and oriented to person, place, and time. IVs and Medications Medications Reviewed: Medications were reviewed in detail Lab and Diagnostics Result Diagram: 11/21/16 0900 11/21/16 0229 X-Rays, CTs and MRIs PROCEDURE: X-RAY CHEST, TWO VIEWS IMPRESSION: Stable chest. No acute cardiopulmonary process is evident. Approved by: Paresh Hilario M.D. on 11/20/2016 at 15:11 12-lead ECG Sinus rhythm, premature ventricular contraction, non-specific intraventricular conduction delay Assessment & Plan Mr. Velasco is an 81 year old man with history of diabetes mellitus type II, hypertension, hyperlipidemia, recent pancreatitis, and myelodysplastic syndrome who presented to the hospital for upper chest pain Possible unstable angina, acute, present on admission, resolved. - EKG does not have concerning ST segment changes and initial troponin negative. He has chest pain rest, which improved with nitroglycerin. He was given a loading dose of aspirin and a dose of metoprolol tartrate. He has hypertension, hyperlipidemia, and diabetes mellitus. He has history of GERD and was hospitalized for pancreatitis 5 days ago. CXR did not show acute pulmonary changes. He does not have leg pain or swelling and his pain is not pleuritic. He had tenderness to palpation at his left acromion, so there is a possible musculoskeletal component. - Troponin negative times 3 - EKGs as needed for chest pain - Nitroglycerin and morphine as needed for pain - Stopped heparin drip per cardiac protocol - Aspirin 81 mg once daily, continue lisinopril 40 mg once daily, atorvastatin 40 mg once daily at bedtime - Avoid beta blockers and calcium channel blockers as pt has first degree AV block - Hold morning medications for stress test this afternoon - Echocardiogram performed and results pending - NPO until cardiac stress test performed - Exercise stress test with nuclear imaging today Recent pancreatitis, subacute, present on admission, active. - Hospitalized 11/16/16 to 11/17/16 for acute pancreatitis and lipase was [address] scan showed mild pancreatitis. Etiology uncertain. - Lipase elevated at 111, improved compared to previous hospitalization and no abdominal pain today. - Continue to monitor Diabetes mellitus type II on metformin and insulin, chronic. - HgbA1c 8.8% on 11/16/16 - Glargine insulin 15 units at bedtime with low dose correctional scale for now - Hold home metformin for now - Monitor and adjust accordingly Essential hypertension, chronic. - Continue lisinopril 40 mg once daily - Hold amlodipine for now Hyperlipidemia, chronic. - LDL 37, HDL 21 on 11/16/16 - Switched to atorvastatin 40 mg once daily at bedtime Myelodysplastic syndrome, chronic. - Follows with oncology, not currently actively being treated and stable - Chronic stable anemia and stable thrombocytopenia Gastroesophageal reflux disease, chronic. - Maalox as needed Acetaminophen as needed for pain or fever Miralax and Senna as needed for constipation Zofran as needed for nausea or vomiting VTE Prophylaxis: Other (heparin drip) Resuscitation Status: CPR: Attempt Resuscitation Sissy Lenz DO Nov 21, 2016 13:39
--- NOTE | 2016-11-21 14:15 | NUR ---
Social Work Note: Initial Assessment Data& Assessment: EMR reviewed. Pt is a readmit. Brandon Velasco is a 81 year old male admitted on 11/20/2016 for chest pain. SW met with pt and pt at bedside to discuss discharge planning and assess for any unmet needs, SW role explained. SW phone number written on pt whiteboard. Pt has Medicare and [employer] insurance coverage. Pt sees Enrique Macedo MD for primary care. Pt acknowledged that he is a readmission but explained that they were for "difference reasons." Pt denies any needs at home that would be helpful or any follow up appointments that would benefit him that he did not already have in place. SW to follow for potential MD orders if they arise. Pt lives in [place] with his and is independent with all ADL's and no DME. Pt does not have SNF or HH hx. Pt does not have LTC insurance. Pt is a but does not believe he is service connected. Pt DPOA/Advance Directive paperwork is completed, SW requested a copy. Pt to transport pt home when medically ready. Pt and pt deny any other needs. No other discharge needs identified at this time. SW to continue to follow if any needs arise. Plan: Anticipated discharge home via POV when medically ready. No other discharge needs identified at this time. SW to continue to follow if any needs arise. WILLY Bryant Addendum: 11/21/16 at 1422 by JANET CALVERT Amended: Links added.
--- NOTE | 2016-11-21 15:36 | NUR ---
Off floor to CVL Pt off floor to CVL at approximately 1430. Pt SL, sneakers and shorts on, tele to be removed. in room. Care continues.
--- NOTE | 2016-11-21 16:59 | DRSVH ---
[facility] [address] [place] [address] Echocardiogram Report Name: GIO ZARATE LStudy Sven e: 11/21/2016 Height: 70 in Hospital Exam Location: [facility] Weight: 177 lb Gender: Male BSA: 2.0 m2 : 1935 Age: 81 yrs BP: 113/60 mmHg Reason For Study: UNSTABLE ANGINA Ordering Physician: HOSPITALIST [facility] Performed By: Kristian Taveras Referring Physician: Enrique Macedo Interpretation Summary The ejection fraction is estimated to be 60-65%. There is mild mitral regurgitation. The aortic valve is slightly calcified. There is no hemodynamically significant valvular aortic stenosis. There is mild tricuspid regurgitation. The right ventricular systolic pressure is estimated at 26 mmHg assuming a right atrial pressure of 3 mm Hg. Compared to the prior echo report on 2008, there is no significant change. Procedure: A two-dimensional transthoracic echocardiogram with color flow and Doppler was performed. The study quality was technically adequate. Comparison is made with the echocardiogram of 05/02/09. The patient was in normal sinus rhythm during the exam. Left Ventricle: The left ventricle is normal in size. There is normal left ventricular wall thickness. The ejection fraction is estimated to be 60-65%. There are no focal wall motion abnormalities. Right Ventricle: Borderline right ventricular enlargement. The right ventricular systolic function is normal. Atria: There is moderate biatrial enlargement. The interatrial septum is intact with no evidence for an atrial septal defect. Mitral Valve: The mitral valve is normal in structure and function. There is mild mitral regurgitation. Aortic Valve: The aortic valve is trileaflet. The aortic valve is slightly calcified. There is no hemodynamically significant valvular aortic stenosis. No aortic regurgitation is present. Tricuspid Valve: The tricuspid valve is normal in structure and function. There is mild tricuspid regurgitation. The right ventricular systolic pressure is estimated at 26 mmHg assuming a right atrial pressure of 3 mm Hg. Pulmonic Valve: The pulmonic valve is normal in structure and function. There is trace pulmonic regurgitation. Great Vessels: The aortic root is normal size. The dimensions of the ascending aorta are normal. The pulmonary artery is normal size. The IVC is of normal diameter and collapses greater than 50% with a sniff. This suggests a low right atrial pressure of 3 mm Hg. Pericardium/ Pleura There is no pericardial effusion. There is no pleural effusion. MMode/2D Measurements & Calculations LVIDd: 5.2 cm LA dimension: 4.5 cm RA long axis LVOT diam: 2.2 cm LVIDs: 3.2 cm Ao root diam FS: 37.1 % LA A2 area: 22.7 cm RA area EPSS: 0.67 cm LA A4 area: 30.7 cm Aortic Jxn: 2.5 cm IVSd: 0.84 cm LA length (vol) : 24.9 cm asc Aorta Diam LVPWd: 0.94 cm RA vol LA vol: 88.5 ml : 89.4 ml Ao Arch Diam (Prox LA vol index RA Trans): 3.2 cm : 45.1 mm2 IVC diam: 1.8 cm LV hutchison. diameter/BSA LV sys. diameter/BSA RVD1 (basal) RVD2 (mid): 4.3 cm (cm/m^2): 2.6 (cm/m^2): 1.6 Doppler Measurements & Calculations Ao V2 max MV E max edmundo MV E/A: 0.79 TR max edmundo : 164.4 cm/sec : 76.0 cm/sec Med Peak E' Edmundo : 239.2 cm/sec Ao max P.8 mmHg MV A max edmundo TR max PG Ao mean P.6 mmHg : 96.4 cm/sec E/E' med: 16.0 : 22.9 mmHg LVOT Max Edmundo Pulm A Revs Dur PA V2 max : 104.8 cm/sec : 82.8 cm/sec MV A dur PA mean PG MICHAEL(I,D): 2.7 cm : 0.17 sec sev ratio: 0.72 PA Accel Time : 0.10 sec MV dec time: 0.16 secAo V2 mean LV V1 max PG PA V2 mean : 123.8 cm/sec : 61.7 cm/sec Ao V2 VTI: 37.8 cm LV V1 VTI PA pr(Accel) : 27.2 cm : 31.6 mmHg MICHAEL(V,D): 2.4 cm2 MICHAEL indexed to BSA Pulm Anne-Marie Guardados Dur - MV A (cm^2/m^2): 1.4 Dur: -0.08 msec Electronically signed by: Zoran Hector on Reading Physician:11/21/2016 04:58 PM
--- NOTE | 2016-11-21 17:26 | DRSVH ---
PROCEDURE: 1 DAY TREADMILL STRESS TEST Rest and exercise myocardial perfusion SPECT with gated imaging and ejection fraction RADIOPHARMACEUTICAL: 7.3 mCi Tc-99m tetrafosmin IV at rest and 25.2 mCi Tc-99m tetrafosmin IV at peak exercise. Etk-mae-gntblhcm was performed. INDICATIONS: 81 year-old man with chest pain. The patient has hypertension, hyperlipidemia and diabe héctor. Evaluate for myocardial ischemia TECHNIQUE: Radiopharmaceutical was injected at peak stress test, and also at rest. SPECT images wer e obtained. SPECT myocardial perfusion images were displayed in short axis, horizontal long axis, an d vertical long axis views. Gated images were reviewed using Auto[employer] software. COMPARISON: [facility], [place], KEY PERF SPECT MULTI (PN), 04/27/2009, 13:17. CARDIAC STRESS: A standard Kurt treadmill exercise tolerance test was performed by the patient under the supervision of an attending staff. The patient exercised for 2 minutes and 48 seconds; functional aerobic impai rment (OTIS) is +15 %. Hemodynamic data: There is normal blood pressure and heart rate response to exercise stress. Patien t achieved 91% of maximum predicted heart rate at peak exercise. Symptoms: Patient denied chest pain during exercise. EKG: No diagnostic EKG changes of ischemia; frequent PVCs. FINDINGS: Raw data: There is good myocardial labeling by radiotracer. No significant motion artifacts. Left ventricle function: Gated images demonstrate normal left ventricle wall thickening. No segment al wall motion abnormality. No transient ischemic dilation. The left ventricle resting end-diastoli c volume is normal. Left ventricle stress ejection fraction is 68%; normal values are above 45%. Myocardial perfusion: There is normal distribution of activity in the left and right ventricular key cardium. No fixed or reversible perfusion defects. Comparison to prior examinations: Compared to the last admission on 04/27/2001, there is no significa nt change. IMPRESSION: 1. Normal myocardial perfusion images. 2. Normal left ventricular volume and systolic function. 3. [id number] reduced exercise capacity. No chest pain or diagnostic EKG changes for ischemia . PQRS ATTESTATIONS: Measure 322 - Is this imaging test primarily performed on a low-risk surgery patient for preoperative evaluation within 30 days preceding their low-risk non-cardiac surgery? Low-risk surgery is defined as cardiac or myocardial infarction less than 1%, including (but not limited to) endoscopic pr ocedures, superficial procedures, cataract surgery, and excisional breast surgery: Answer: No Measure 323 - Is this imaging test performed primarily for the monitoring of an asymptomatic patient who had percutaneous coronary intervention on the visit date or within 2 years of the visit date? An swer: No Measure 324 - Is this imaging test performed primarily for the initial detection and risk assessment on an asymptomatic, low coronary heart disease patient? Low CHD risk definition = clinicians should consider the maximum number of available patient factors used to estimate risk based on [place] (A TP III criteria), typically age, gender, diabetes, smoking status, and use of blood pressure medicati on, and integrate age appropriate estimates for missing elements, such as LDL or standard blood press ure. Answer: No Dictated by: Ben Vega M.D. on 11/21/2016 at 17:19 Approved by: Ben Vega M.D. on 11/21/2016 at 17:25
[2016-11-21] MEDS ORDERED: NITR0.4T SL (17:31)
--- NOTE | 2016-11-21 17:35 | PCM.DIMED ---
Sissy Lenz DO 11/21/16 1735: Discharge Instructions Date of Service Nov 21, 2016 Dates of Hospitalization Nov 20, 2016 at 19:09 Discharge Diagnosis Discharge Diagnosis You had chest pain and based on the work up done today, your heart is not likely the cause of the pain. Diet Discharge Diet: Heart Healthy, Diabetic Activity Discharge Activity: Limited until seen by PCP Call your provider Call your provider for: Fever or Chills, Shortness of breath, Bleeding, Chest pain, Vomitting, Excessive diarrhea, Weakness (unilateral) Patient Instructions Patient Instructions Stop amlodipine. The EKG, or tracing of your heart's rhythm, showed a first degree block. Follow up with a material stress tester about your high blood pressure medications. Continue all of your other medications as prescribed. I have also given you a prescription for nitroglycerin sublingual tablets. If you have chest pain, dissolve 1 tablet underneath your tongue. You can repeat this every 5 minutes for a maximum of 3 times. Please call 911 or seek medical attention. Follow up with your primary care provider in 7-10 days to review your hospital stay. Follow-up Provider: Enrique Macedo MD Follow-up with PCP in: 1 week [facility] Follow-up in: Other (first available provider) Georgie Granda DO 11/22/16 1859: Discharge Instructions Attending's Statement The patient was seen and examined together with Dr. Lenz on 11/21/16 and I agree with the history, exam and plan as outlined in the note above. Sissy Lenz DO Nov 21, 2016 17:35 Georgie Granda DO Nov 22, 2016 18:59
[2016-11-21 17:50] VITALS: BP 159/73; PULSE 68; RESP 16; O2SAT 98
--- NOTE | 2016-11-21 18:38 | NUR ---
CVL to P[facility] Pt back to room at approximately 1740. Pt states he is hungry, notified , diet changed. Care continues.
--- NOTE | 2016-11-21 18:39 | NUR ---
Discharge Pt discharged at approximately 1855 to home with . Pt given educational material for chest pain, nitroglycerin. Followup appt information highlighted. Pt IVs DC'd catheter intact, tele DC'd pc maintenance technician notified. Pt acknowledged and understood all information. Pt left with all personal belongings. Pt escorted by HOSPICE CARE CONSULTANT in wheelchair to door.
--- NOTE | 2016-11-22 16:04 | PCM.DC.MED ---
Discharge Summary Date of Service Nov 22, 2016 Dates of Hospitalization Date of Hospital Admission Nov 20, 2016 at 19:09 Date of Discharge: Nov 21, 2016 Providers: Admitting Physician: Georgie Granda DO Primary Care Physician: Enrique Macedo MD Attending Physician: Georgie Granda DO Diagnosis at Time of Discharge Diagnosis at Time of Discharge Ruled out unstable angina Recent pancreatitis Diabetes mellitus type II Essential hypertension Hyperlipidemia Myelodysplastic syndrome Gastroesophageal reflux disease Possible urinary tract infection Procedures XRay, CTs & MRIs PROCEDURE: X-RAY CHEST, TWO VIEWS IMPRESSION: Stable chest. No acute cardiopulmonary process is evident. Approved by: Paresh Hilario M.D. on 11/20/2016 at 15:11 PROCEDURE: 1 DAY TREADMILL STRESS TEST IMPRESSION: 1. Normal myocardial perfusion images. 2. Normal left ventricular volume and systolic function. 3. [id number] reduced exercise capacity. No chest pain or diagnostic EKG changes for ischemia. PQRS ATTESTATIONS: Measure 322 - Is this imaging test primarily performed on a low-risk surgery patient for preoperative evaluation within 30 days preceding their low-risk non- cardiac surgery? Low-risk surgery is defined as cardiac or myocardial infarction less than 1%, including (but not limited to) endoscopic procedures, superficial procedures, cataract surgery, and excisional breast surgery: Answer : No Measure 323 - Is this imaging test performed primarily for the monitoring of an asymptomatic patient who had percutaneous coronary intervention on the visit date or within 2 years of the visit date? Answer: No Measure 324 - Is this imaging test performed primarily for the initial detection and risk assessment on an asymptomatic, low coronary heart disease patient? Low CHD risk definition = clinicians should consider the maximum number of available patient factors used to estimate risk based on [place] ( ATP III criteria), typically age, gender, diabetes, smoking status, and use of blood pressure medication, and integrate age appropriate estimates for missing elements, such as LDL or standard blood pressure. Answer: No Approved by: Ben Vega M.D. on 11/21/2016 at 17:25 ECG 12 Lead Sinus rhythm, premature ventricular contraction, non-specific intraventricular conduction delay Cardiac Echo Impression Echocardiogram Report Interpretation Summary The ejection fraction is estimated to be 60-65%. There is mild mitral regurgitation. The aortic valve is slightly calcified. There is no hemodynamically significant valvular aortic stenosis. There is mild tricuspid regurgitation. The right ventricular systolic pressure is estimated at 26 mmHg assuming a right atrial pressure of 3 mm Hg. Compared to the prior echo report on 2008, there is no significant change. Electronically signed by: Zoran Hector on Reading Physician:11/21/2016 04:58 PM Brief History Mr. Velasco is an 81 year old man with history of diabetes mellitus type II, hypertension, hyperlipidemia, recent pancreatitis, and myelodysplastic syndrome who presented to the hospital for upper chest pain that radiates into his left shoulder that started around 02:30 PM. He got lightheaded while walking around shopping with his , which he describes as feeling tired and exhausted but not like he was going to pass out. The pain did not improve after resting and the patient then came to the ER. Hospital Course Mr. Velasco is an 81 year old man with history of diabetes mellitus type II, hypertension, hyperlipidemia, recent pancreatitis, and myelodysplastic syndrome who presented to the hospital for upper chest pain. He was admitted to the hospital for observation. Troponin was negative times 3. His EKG did not show any ST segment changes concerning for ischemia. He underwent an exercise stress test with nuclear imaging which was unremarkable. An echocardiogram performed did not show changes from a previous echocardiogram done in 2008. An EKG did show first degree AV block so his amlodipine was discontinued at discharge. The patient was noted to have a first-degree AV block on repeat EKG. The patient's amlodipine was discontinued as this may have been the cause of the patient's chest pain. The patient's blood pressure was well controlled with 40 mg of lisinopril. The patient will continue taking the lisinopril and the amlodipine has been discontinued. The patient has been recommended to follow- up with a bag bailer upon discharge. It was found after discharge of the patient did have a UTI status post urine culture. The patient was contacted via phone and a prescription was called in to his pharmacy for Augmentin 875 twice a day for enterococcus UTI. He was discharged home in stable condition. For a more detailed outline of his hospital course, please see below: Ruled out unstable angina, acute, present on admission, resolved. - EKG did not have concerning ST segment changes and initial troponin negative. He had chest pain at rest, which improved with nitroglycerin. He was given a loading dose of aspirin and a dose of metoprolol tartrate. . - Most like his chest pain was multifactorial. He has history of GERD and was hospitalized for pancreatitis the prior week.. CXR did not show acute pulmonary changes. He did not have leg pain or swelling and his pain was not pleuritic. He had tenderness at his left shoulder, which resolved after Tylenol. - Troponin and CK-MB were negative. Exercise stress test with imaging and echocardiogram were unremarkable. - Heparin drip per cardiac protocol was discontinued after negative troponin levels - Aspirin 81 mg once daily, continued lisinopril 40 mg once daily, atorvastatin 40 mg once daily at bedtime - Did not continue metoprolol due to first degree AV block noted on a repeat EKG Recent pancreatitis, subacute, present on admission, improved - Hospitalized 11/16/16 to 11/17/16 for acute pancreatitis and lipase was [address] scan showed mild pancreatitis. Etiology uncertain. Patient reported that he no longer drank any alcohol since prior discharge. - Lipase elevated at 111, improved compared to previous hospitalization and no abdominal pain. Diabetes mellitus type II on metformin and insulin, chronic. - HgbA1c 8.8% on 11/16/16 and 9.2% during this hospitalization Essential hypertension, chronic. - Continued lisinopril 40 mg once daily - Discontinued amlodipine due to first degree AV block as above Hyperlipidemia, chronic. - LDL 37, HDL 21 on 11/16/16 - Continued stain therapy Myelodysplastic syndrome, chronic. - Follows with oncology, not currently actively being treated and stable Gastroesophageal reflux disease, chronic. - Maalox as needed Possible urinary tract infection - UA showed many bacteria but negative leukocyte esterase and nitrite. 0-5 WBC. - Urine culture shows preliminary probable enterococci - Called in Augmentin 875/125 mg 1 tablet PO BID for 7 days and advised to take with probiotics. Notified patient's that patient is to take antibiotics for bladder infection and that antibiotics would be called into [facility] in [place]. Patient's verbalized understanding of the plan. - Recommend repeat UA at follow up appointment Exam Vital Signs (Last) Date Time Temp Pulse Resp B/P Pulse Ox O2 Delivery O2 Flow Rate FiO2 11/21/16 17:50 36.5 68 16 159/73 98 Room Air Exam General: Elderly man lying in bed comfortably in no acute distress who appears younger than stated age, well-developed, well-nourished, appropriately interactive HEENT: Normocephalic, atraumatic. . Neck: Supple with full range of motion. Cardiovascular: Regular rate and rhythm with no murmurs, rubs, or gallops appreciated Pulmonary: Clear to auscultation bilaterally with no crackles, wheezes, or rhonchi. Normal respiratory effort with no use of accessory muscles. Abdomen: Bowel tones present. Soft, nontender, nondistended. Extremities:Tenderpoint at left acromion. No clubbing, cyanosis, or edema appreciated. Skin: Normal temperature, turgor, and texture; no rash or ulcers appreciated. Neurological: Cranial nerves grossly intact. Grossly normal muscle strength, tone, and bulk. Psychiatric: Normal mood and affect. Alert and oriented to person, place, and time. Test 11/20/16 15:35 11/20/16 21:15 11/21/16 02:29 11/21/16 04:45 Magnesium Level 1.6mg/dL (1.6-2.6) Total Bilirubin 0.4mg/dL (0.0-1.2) Aspartate Amino Transf (AST/SGOT) 21U/L (0-50) Alanine Aminotransferase (ALT/SGPT) 20U/L (0-44) Alkaline Phosphatase 84U/L (25-160) Total Protein 7.0g/dL (6.4-8.4) Albumin 4.2g/dL (3.4-5.0) Lipase 111U/L (13-60) Thyroid Stimulating Hormone (TSH) 2.180uIU/mL (0.450-4.500) Hold [place] Top Tube Received (Received) Total Creatine Kinase 48U/L (21-232) Creatine Kinase MB 1.8ng/mL (0.0-10.4) Creatine Kinase MB % % (0.0-5.0) White Blood Count 6.4th/mm3 (3.8-10.1) Red Blood Count 2.43mil/mm3 (4.40-5.80) Mean Corpuscular Volume 101.6fL (81-100) Mean Corpuscular Hemoglobin 32.9pg (27.0-35.0) Mean Corpuscular Hemoglobin Concent 32.4% (32.0-37.0) Red Cell Distribution Width 14.0% (12.3-15.4) Platelet Count 112bil/L (150-400) Neutrophils (%) (Auto) 42% (40-74) Lymphocytes (%) (Auto) 48% (14-46) Monocytes (%) (Auto) 2% (4-12) Eosinophils (%) (Auto) 0% (0-5) Basophils (%) (Auto) 0% (0-3) Band Neutrophils % 8% (1-5) Sodium Level 139mEq/L (134-144) Potassium Level 4.0mEq/L (3.5-5.2) Chloride Level 103mEq/L (97-108) Carbon Dioxide Level 23mmol/L (18-29) Blood Urea Nitrogen 30mg/dL (8-27) Creatinine 1.30mg/dL (0.76-1.27) Estimat Glomerular Filtration Rate 56mL/min (>59) Glucose Level 166mg/dL (60-99) Hemoglobin A1c 9.2% (4.8-5.6) Calcium Level 8.8mg/dL (8.5-10.1) Activated Partial Thromboplast Time 59.9sec (22.8-33.0) Test 11/21/16 08:16 11/21/16 09:00 11/21/16 11:17 Troponin T 0.010ug/L (0.0-0.011) Hemoglobin 8.8g/dL (13.8-17.2) Hematocrit 26.5% (41.0-50.0) Urine Color Yellow (YELLOW) Urine Appearance Hazy (CLEAR,HAZY) Urine pH 5.5 (5.0-8.0) Urine Specific [place] 1.015 (1.003-1.035) Urine Protein 30mg/dL (NEG,TRACE) Urine Glucose (UA) 500mg/dL (NEGATIVE) Urine Ketones Negativemg/dL (NEGATIVE) Urine Occult Blood Negative (NEGATIVE) Urine Nitrite Negative (NEGATIVE) Urine Bilirubin Negative (NEGATIVE) Urine Urobilinogen Normalmg/dL (NORMAL) Urine Leukocyte Esterase Negative (NEGATIVE) Urine RBC 0-2/hpf (0-2) Urine WBC 0-5/hpf (0-5) Urine Epithelial Cells Occasional/hpf (NONE-MOD) Urine Crystals None seen (NONE SEEN) Urine Bacteria Many/hpf (NONE-FEW) Urine Hyaline Casts None/lpf (NONE) Urine Granular Casts None seen (NONE SEEN) Urine Waxy Casts None seen (NONE SEEN) Urine Red Blood Cell Casts None seen (NONE SEEN) Urine White Blood Cell Casts None seen (NONE SEEN) Urine Mucus None seen (None Seen) Urine Trichomonas None seen (NONE SEEN) Urine Yeast None (NONE SEEN) Urinalysis Comment None Urine Culture Reflexed Indicated Discharge Medications Discharge Medications Aspirin (Aspirin) 81 Mg Tablet 81 MG PO DAILY (Reported) Cyanocobalamin (Vitamin B12) 500 Mcg Tablet 1,000 MCG PO DAILY (Reported) Insulin Glargine (Lantus U100 Insulin Vial) 100 Unit/Ml Vial 18 UNIT SUBQ HS ( Reported) Lisinopril (Lisinopril) 40 Mg Tablet 40 MG PO DAILY (Reported) Melatonin/Pyridoxine (Melatonin 3 mg Tablet) 1 Each Tablet 1 EACH PO DAILY ( Reported) Metformin (Glucophage) 1,000 Mg Tablet 1,000 MG PO BID (Reported) Multivitamin (Multi Vitamin Daily) 1 Each Tablet 1 EACH PO DAILY (Reported) Simvastatin (Zocor) 10 Mg Tablet 10 MG PO HS (Reported) As needed Nitroglycerin SL (Nitrostat) 0.4 Mg Tab.subl 0.4 MG SL Q5MIN PRN PRN For Chest Pain Take one every 5 minutes for a maximum of 3 times for chest pain Prescribed by: SISSY LENZ DO Followup Plan Discharge Diet: Heart Healthy, Diabetic Discharge Activity: Limited until seen by PCP Patient Instructions Stop amlodipine. The EKG, or tracing of your heart's rhythm, showed a first degree block. Follow up with a bag bailer about your high blood pressure medications. Continue all of your other medications as prescribed. I have also given you a prescription for nitroglycerin sublingual tablets. If you have chest pain, dissolve 1 tablet underneath your tongue. You can repeat this every 5 minutes for a maximum of 3 times. Please call 911 or seek medical attention. Follow up with your primary care provider in 7-10 days to review your hospital stay. Follow-up Provider: Enrique Macedo MD Follow-up with PCP in: 1 week [facility] Follow-up in: Other (first available provider) Time spent Greater than 35 minutes Attending Statement The patient was seen and examined together with Dr. Lenz on 11/21/2016 and I have added additional information to the note above. copies to: Enrique Macedo MD; CARDIOLOGY,[facility] Sissy Lenz DO Nov 22, 2016 15:56 Georgie Granda Nov 22, 2016 19:04
== END 2016-11-21 18:45 | disposition home or self-care (01) ==
LOC: SED 14:53 → PCC 19:09
PROVIDERS: ADMIT Neuromusculoskeletal Medicine & OMM; ATTEND Neuromusculoskeletal Medicine & OMM
DX: I20.0 Unstable angina (principal); K86.1 Other chronic pancreatitis; E11.9 Type 2 diabetes mellitus without complications; I10 Essential (primary) hypertension; E78.5 Hyperlipidemia, unspecified; D46.9 Myelodysplastic syndrome, unspecified; K21.9 Gastro-esophageal reflux disease without esophagitis; I44.0 Atrioventricular block, first degree; N40.0 Benign prostatic hyperplasia without lower urinary tract symptoms; N39.0 Urinary tract infection, site not specified; Z87.891 Personal history of nicotine dependence; Z79.4 Long term (current) use of insulin; Z79.84 Long term (current) use of oral hypoglycemic drugs; Z79.82 Long term (current) use of aspirin
CPT/HCPCS: 36415; 71020; 78452; 80048; 80053; 81000; 82550; 82553; 82948; 83036; 83690; 83735; 84443; 84484; 85014; 85018; 85025; 85730; 87077; 87086; 87088; 87186; 93005; 93017; 96374; 96375; 96376; 99285; A9502; C8929; G0378; J1644; J1815; J2270; J2405; J7030

== ENCOUNTER 2016-11-27 18:38 | Inpatient (IN) | payer MEDICARE, OTHER ==
[~2016-11-27] VITALS: Ht 177.8 cm; Wt 79.3 kg
[2016-11-27 18:38] VITALS: BP 157/76; PULSE 83; RESP 17; O2SAT 100
[~2016-11-27 18:38] MED LIST changes: -AMLO10TA3 PO; +CYAN500 PO; +METF1000 PO; -METF500T4 PO; +NITR0.4T SL
--- NOTE | 2016-11-27 18:42 | ED.REPORT ---
HPI-General Illness Date of Service Nov 27, 2016 ED Provider: Rodriguez Dutta DO Pt is a 81 year old male with a history of pancreatitis, CAD, DM, myelodysplastic syndrome, and HTN who presents to the ED via EMS complaining of fatigue prior to arrival. He c/o associated diarrhea, weakness, and nausea. Pt denies vomiting, fever, chest pain, and abdominal pain. Pt is currently taking Augmentin twice a day for enterococcus UTI. Pt was admitted to [facility] on 11/20/16 for observation after presenting to the ED complaining of upper chest pain. He was discharged on 11/22/16 with diagnosis of enterococcus UTI. Nursing Notes Stated Complaint: GENERALIZED WEAKNESS Chief Complaint: General Complaint Nursing Notes Reviewed: Yes Allergies: Coded Allergies: fentanyl (Verified Adverse Reaction, Intermediate, Nausea, 11/27/16) Scheduled Aspirin (Aspirin) 81 Mg Tablet 81 MG PO DAILY Cyanocobalamin (Vitamin B12) 500 Mcg Tablet 1,000 MCG PO DAILY Insulin Glargine (Lantus U100 Insulin Vial) 100 Unit/Ml Vial 18 UNIT SUBQ HS Lisinopril (Lisinopril) 40 Mg Tablet 40 MG PO DAILY Melatonin/Pyridoxine (Melatonin 3 mg Tablet) 1 Each Tablet 1 EACH PO DAILY Metformin (Glucophage) 1,000 Mg Tablet 1,000 MG PO BID Multivitamin (Multi Vitamin Daily) 1 Each Tablet 1 EACH PO DAILY Simvastatin (Zocor) 10 Mg Tablet 10 MG PO HS Scheduled PRN Nitroglycerin SL (Nitrostat) 0.4 Mg Tab.subl 0.4 MG SL Q5MIN PRN PRN For Chest Pain Take one every 5 minutes for a maximum of 3 times for chest pain General Time Seen by MD: 18:42 Chief Complaint Other (Fatigue) Hx Obtained From: Patient, EMS Arrived By: Ambulance Sudden in Onset?: No Onset Occurred: Onset unknown Symptom Duration: Since onset Recent Healthcare: Recent doctor visit, Recent hospitalization Similar Sx Previous: Yes Past Medical History Past Medical History Myelodysplastic syndrome Hypercholesterolemia Arthritis Pancreatitis Enterococcuss UTI Reports: Coronary artery disease, Diabetes mellitus, Hypertension Past Surgical History Bilateral knee arthroscopy. Reports: Tonsillectomy Smoking History Former Smoker Social History Alcohol Use: 1-3 per day Other Social History: Good social support Ambulatory Status Independent Review of Systems Full Review of Systems Constitutional: Reports: Fatigue, Weakness - generalized, Denies: Fever Cardiovascular: Denies: Chest pain GI: Reports: Diarrhea, Nausea, Denies: Abdominal pain, Vomiting Physical Exam Vital Signs Vital Signs Date Time Temp Pulse Resp B/P Pulse Ox O2 Delivery O2 Flow Rate FiO2 11/27/16 21:07 37.2 85 18 142/80 97 Room Air 11/27/16 18:38 36.5 83 17 157/76 100 Room Air Initial VS: Reviewed Head / Eyes: Atraumatic, Normocephalic, PERRL Neck: Supple, Non-tender, Full range of motion Respiratory: Breath sounds normal, Clear to auscultation, No respiratory distress Cardiovascular: Regular rate & rhythm, Heart sounds normal, Intact distal pulses Extremities: Vascular intact, Neuro intact Skin: Warm, Dry, No cyanosis Neurologic: Alert, Oriented, Nonfocal Psychiatric: Mood/affect normal, Behavior normal General/Constitutional: Awake, Alert, Cooperative ENT: Atraumatic, Airway patent, Pharynx NL Mouth: Positive: Mucous membranes dry Abdomen: Atraumatic, Soft, Non-tender Bowel Sounds / Distention: Positive: Bowel sounds hyperactive Neurologic: Oriented X3, Speech NL, No motor deficits, No sensory deficits Global weakness Interpretation & Diagnostics Lab Results Interpretation Result Diagram: 11/27/16 1846 11/27/16 1846 Test 11/27/16 18:46 11/27/16 18:56 11/27/16 19:10 11/27/16 21:20 White Blood Count 8.6th/mm3 (3.8-10.1) Red Blood Count 2.77mil/mm3 (4.40-5.80) Hemoglobin 9.1g/dL (13.8-17.2) Hematocrit 27.6% (41.0-50.0) Mean Corpuscular Volume 99.6fL (81-100) Mean Corpuscular Hemoglobin 32.9pg (27.0-35.0) Mean Corpuscular Hemoglobin Concent 33.0% (32.0-37.0) Red Cell Distribution Width 13.9% (12.3-15.4) Platelet Count 117bil/L (150-400) Neutrophils (%) (Auto) 53% (40-74) Lymphocytes (%) (Auto) 37% (14-46) Monocytes (%) (Auto) 0% (4-12) Eosinophils (%) (Auto) 0% (0-5) Basophils (%) (Auto) 0% (0-3) Band Neutrophils % 10% (1-5) Sodium Level 137mEq/L (134-144) Potassium Level 4.3mEq/L (3.5-5.2) Chloride Level 106mEq/L (97-108) Carbon Dioxide Level 17mmol/L (18-29) Blood Urea Nitrogen 26mg/dL (8-27) Creatinine 1.23mg/dL (0.76-1.27) Estimat Glomerular Filtration Rate 60mL/min (>59) Glucose Level 238mg/dL (60-99) Calcium Level 9.4mg/dL (8.5-10.1) Total Bilirubin 0.4mg/dL (0.0-1.2) Aspartate Amino Transf (AST/SGOT) 51U/L (0-50) Alanine Aminotransferase (ALT/SGPT) 73U/L (0-44) Alkaline Phosphatase 112U/L (25-160) Troponin T < 0.010ug/L (0.0-0.011) Total Protein 6.6g/dL (6.4-8.4) Albumin 3.6g/dL (3.4-5.0) Lipase 118U/L (13-60) Hold Purple Top Tube Received (Received) Hold Blue Top Tube Received (Received) Hold [place] Top Tube Received (Received) Lactic Acid Level 2.6mmol/L (0.4-2.0) Urine Color Yellow (YELLOW) Urine Appearance Clear (CLEAR,HAZY) Urine pH 5.0 (5.0-8.0) Urine Specific [place] 1.025 (1.003-1.035) Urine Protein 30mg/dL (NEG,TRACE) Urine Glucose (UA) 500mg/dL (NEGATIVE) Urine Ketones Tracemg/dL (NEGATIVE) Urine Occult Blood Negative (NEGATIVE) Urine Nitrite Negative (NEGATIVE) Urine Bilirubin Negative (NEGATIVE) Urine Urobilinogen Normalmg/dL (NORMAL) Urine Leukocyte Esterase Negative (NEGATIVE) Urine RBC 0-2/hpf (0-2) Urine WBC 6-10/hpf (0-5) Urine Epithelial Cells Moderate/hpf (NONE-MOD) Urine Crystals None seen (NONE SEEN) Urine Bacteria Few/hpf (NONE-FEW) Urine Hyaline Casts None/lpf (NONE) Urine Granular Casts None seen (NONE SEEN) Urine Waxy Casts None seen (NONE SEEN) Urine Red Blood Cell Casts None seen (NONE SEEN) Urine White Blood Cell Casts None seen (NONE SEEN) Urine Mucus Present (None Seen) Urine Trichomonas None seen (NONE SEEN) Urine Yeast None (NONE SEEN) Urinalysis Comment None Urine Culture Reflexed Indicated Test 11/27/16 22:38 ECG Interpretation ECG Interpretation: Sinus rhythm with a rate of 85 Time: 18:58 Interpreted by: ED physician X-Ray Chest Interpretation Chest Xray Interpretation: IMPRESSION: Negative chest. Dictated by: Jackson Croft M.D. on 11/27/2016 at 19:04 View: Portable, 1 view Interpretation / Wet Read by: Interpret - Radiologist Re-Eval/Medical Decision Med Decision/Clinical Course Mr. Velasco was medicated and fluid resuscitated. He initially was given a dose of IV antibiotics because an elevated pro-calcitonin and bandemia. However I think that his urine is probably been adequately treated with the Augmentin. I talked about being discharged home. He states he still feels too nauseous, too sick and too weak to be discharged home. He is still having ongoing symptoms will be admitted observation status for careful hydration and stool study analysis for possible C. difficile. Source of Hx: Old records Time of Eval: 22:16 Re-Evaluation/Progress Note: Pt rechecked. Informed pt of plan for admission. Pt understands and agrees with plan for admission. F/U instructions and RTER warnings given. All questions addressed. Consultation : Referral / Consult Name: Leon Pham MD Consulted With: Hospitalist Call Returned at: 22:16 Azure Developer: Will see patient, Agrees with eval, Agrees with plan, Accepts admit Counseled Regarding: Diagnosis, Lab results, Need for admission Discharge & Departure Primary Impression: Diarrhea Diarrhea type: unspecified type Qualified Code: R19.7 - Diarrhea, unspecified Additional Impressions: Nausea Dehydration Disposition: ADMITTED TO HOSPITAL Discharge Condition All VS Reviewed: Yes Condition: Stable Referrals: Enrique Macedo MD (PCP) Scribe Attestation Portions of this note were transcribed by Melony Middleton. I, Dr. Frias personally performed the history, physical exam and medical decision-making; I reviewed and confirmed the accuracy of the information in the transcribed note. Signed by: Debbie Villela, 11/27/16 and 19:50 copies to: Enrique Macedo MD, Todd P DO Nov 27, 2016 18:42 Melony Macias Nov 27, 2016 19:17
--- NOTE | 2016-11-27 19:12 | DRSVH ---
PROCEDURE: X-RAY CHEST ONE VIEW, PORTABLE ([id number]) INDICATIONS: weakness, question of sepsis TECHNIQUE: One view of the chest was acquired. COMPARISON: [facility], , CHEST 1VW (PORTABLE), 04/24/2009, 14:54. FINDINGS: Surgical changes and devices: None. Lungs and pleura: No pleural effusions or pneumothorax. Lungs are clear. Mediastinum: Mediastinal contours appear normal. Heart size is normal. Bones and chest wall: No suspicious bony lesions. Overlying soft tissues appear unremarkable. IMPRESSION: Negative chest. Dictated by: Jackson Croft M.D. on 11/27/2016 at 19:04 Approved by: Jackson Croft M.D. on 11/27/2016 at 19:05
[2016-11-27] MEDS ORDERED: 0.9% Sodium Chloride 1,000 ML IV ONE (19:15)
[2016-11-27 19:21] LABS: EOSINOPHILS % (AUTO) 0 % (0-5); Mean Corpuscular Hemoglobin 32.9 pg (27.0-35.0); Mean Corpuscular Volume 99.6 fL (81-100); Platelet Count 117 bil/L (150-400)
[2016-11-27 19:33] LABS: TROPONIN T < 0.010 ug/L (0.0-0.011)
[2016-11-27 19:39] LABS: BASOPHILS % (AUTO) 0 % (0-3); MONOCYTES % (AUTO) 0 % (4-12); NEUTROPHILS % (AUTO) 53 % (40-74)
[2016-11-27 19:51] LABS: Lipase 118 U/L (13-60)
[2016-11-27] MEDS ORDERED: Piperacillin-Tazo 3.375 Gm Inj 3.375 GM in Dextrose 5% Minibag Plus 50 ML IV ONE (19:55)
[2016-11-27] MEDS ORDERED: Ondansetron 2 mg/mL 2 mL Inj IVPUSH ONE (20:05)
[2016-11-27 21:07] VITALS: BP 142/80; PULSE 85; RESP 18; O2SAT 97
[2016-11-27] MEDS: 0.9% Sodium Chloride 1,000 ML IV SCH (21:13)
[2016-11-27 21:29] LABS: APPEARANCE,URINE CLEAR (CLEAR,HAZY); COLOR,URINE YELLOW (YELLOW); OCCULT BLOOD,URINE NEGATIVE (NEGATIVE); UROBILINOGEN,URINE NORMAL (NORMAL)
[2016-11-27] MEDS ORDERED: Polyethylene Glycol (PEG) 17 Gm Powder PO PRN (22:25)
[2016-11-27] MEDS ORDERED: Ondansetron 2 mg/mL 2 mL Inj IVPUSH PRN (22:25)
[2016-11-27] MEDS ORDERED: Alum-Mag Hydrox-Simeth 30 mL Suspension PO PRN (22:25)
--- NOTE | 2016-11-27 22:44 | PCM.HPMED ---
Subjective Date of Service Nov 27, 2016 Primary Provider: Admitting Physician: Primary Care Physician: Enrique Macedo MD Attending Physician: Admit Status: From the Emergency Department, Full Admit, Remote Telemetry Chief Complaint: Fatigue History of Present Illness: Brandon Velasco is a 81 year old male with Diabetes mellitus type II, hypertension, hyperlipidemia, recent pancreatitis, and myelodysplastic syndrome who presented to [facility] emergency department via EMS complaining of fatigue prior to arrival Patient reported he has been feeling fatigue and weak. Associated symptoms includes nausea (without vomiting), dehydration (not been able to drink much due to the nausea) and diarrhea (patient reported onset coincide with starting Augmentin recently for Enteroccocus UTI. Denies any fever or chills. Patient had episode of Pancreatitis a few weakness ago and he still feels its ongoing. Admitted 11/16-11/17. Etiology of pancreatitis was not determined but no evidence of gallstone and triglyceride levels normal. He denies heavy Alcohol intake. Pt is currently taking Augmentin twice a day for enterococcus UTI. Pt was admitted to [facility] on 11/20/16 for observation after presenting to the ED complaining of upper chest pain. He was discharged on 11/22/16 with diagnosis of enterococcus UTI and Stress test ruled out Cardiac cause for pain. Case discussed with Dr Frias, evidence of orthostasis and severe dehydration. Failed road test in the ED and will be admitted Review of Systems: Pertinent positives as noted in HPI. All other systems were reviewed and are negative Allergies Coded Allergies: fentanyl (Verified Adverse Reaction, Intermediate, Nausea, 11/27/16) Home Medications From recent discharge Summary, not yet confirmed Aspirin (Aspirin) 81 Mg Tablet 81 MG PO DAILY (Reported) Cyanocobalamin (Vitamin B12) 500 Mcg Tablet 1,000 MCG PO DAILY (Reported) Insulin Glargine (Lantus U100 Insulin Vial) 100 Unit/Ml Vial 18 UNIT SUBQ HS ( Reported) Lisinopril (Lisinopril) 40 Mg Tablet 40 MG PO DAILY (Reported) Melatonin/Pyridoxine (Melatonin 3 mg Tablet) 1 Each Tablet 1 EACH PO DAILY ( Reported) Metformin (Glucophage) 1,000 Mg Tablet 1,000 MG PO BID (Reported) Multivitamin (Multi Vitamin Daily) 1 Each Tablet 1 EACH PO DAILY (Reported) Simvastatin (Zocor) 10 Mg Tablet 10 MG PO HS (Reported) As needed Nitroglycerin SL (Nitrostat) 0.4 Mg Tab.subl 0.4 MG SL Q5MIN PRN PRN For Chest Pain Take one every 5 minutes for a maximum of 3 times for chest pain Prescribed by: HUSSEIN CLAIRE DO [facility] Diabetes mellitus type II on metformin and insulin Hypertension Hyperlipidemia Pancreatitis Myelodysplastic syndrome not taking any treatment and stable Gastroesophageal reflux disease Prostate enlargement . Surgical History Bilateral knee surgery (arthroscopic) Bilateral cataract removal Tonsillectomy Family History Father side is unknown because his father is estranged Mother had esophageal cancer, maternal grandfather pancreatic cancer, and 3 brothers with prostate cancer Social History Hx Alcohol Use: Yes (Glass of wine a day quit after last stay) Hx Substance Use: No Hx Tobacco Use: Yes (quit in 1959) Smoking Status: Former Smoker Exam Vital Signs Vital Sign - Last Date Time Temp Pulse Resp B/P Pulse Ox O2 Delivery O2 Flow Rate FiO2 11/27/16 21:07 37.2 85 18 142/80 97 Room Air Exam General: Alert, Oriented X3, Cooperative, No acute Distress Eyes: PERRLA, Scleral Anicteric Mouth: Mouth Normal, Mucous Membranes dry Neck: Supple, no Thyromegaly, trachea central. Chest & Lungs: Clear to auscultation & percussion, No adventitious breath sounds, no crackles, no wheeze Cardiovascular: Normal S1, Normal S2, No Murmurs/Rubs/Gallops, Regular Rate/ Rhythm, (No JVD, no peripheral edema) Pulses: Radial (present and equal), Dorsalis Pedi (present and equal) Abdomen: Soft, Non-tender, Non-distended, Normoactive bowel tones. Musculoskeletal: Unremarkable. Normal range of motion, no swollen or erythematous joints Extremities: No edema, no cyanosis, no clubbing. Skin: No rashes. Warm and dry, no erythematous areas Neurological: Grossly neurologically intact, has generalized weakness, Normal Speech, Sensation Intact Lymphatic: Lymph nodes Cervical and Axillary not palpable. Lab and Diagnostics Labs Laboratory Tests Test 11/27/16 18:46 11/27/16 18:56 11/27/16 19:10 11/27/16 21:20 White Blood Count 8.6th/mm3 (3.8-10.1) Red Blood Count 2.77mil/mm3 (4.40-5.80) Hemoglobin 9.1g/dL (13.8-17.2) Hematocrit 27.6% (41.0-50.0) Mean Corpuscular Volume 99.6fL (81-100) Mean Corpuscular Hemoglobin 32.9pg (27.0-35.0) Mean Corpuscular Hemoglobin Concent 33.0% (32.0-37.0) Red Cell Distribution Width 13.9% (12.3-15.4) Platelet Count 117bil/L (150-400) Neutrophils (%) (Auto) 53% (40-74) Lymphocytes (%) (Auto) 37% (14-46) Monocytes (%) (Auto) 0% (4-12) Eosinophils (%) (Auto) 0% (0-5) Basophils (%) (Auto) 0% (0-3) Band Neutrophils % 10% (1-5) Sodium Level 137mEq/L (134-144) Potassium Level 4.3mEq/L (3.5-5.2) Chloride Level 106mEq/L (97-108) Carbon Dioxide Level 17mmol/L (18-29) Blood Urea Nitrogen 26mg/dL (8-27) Creatinine 1.23mg/dL (0.76-1.27) Estimat Glomerular Filtration Rate 60mL/min (>59) Glucose Level 238mg/dL (60-99) Calcium Level 9.4mg/dL (8.5-10.1) Total Bilirubin 0.4mg/dL (0.0-1.2) Aspartate Amino Transf (AST/SGOT) 51U/L (0-50) Alanine Aminotransferase (ALT/SGPT) 73U/L (0-44) Alkaline Phosphatase 112U/L (25-160) Troponin T < 0.010ug/L (0.0-0.011) Total Protein 6.6g/dL (6.4-8.4) Albumin 3.6g/dL (3.4-5.0) Lipase 118U/L (13-60) Procalcitonin 0.18ng/mL (0.00-0.08) Hold Purple Top Tube Received (Received) Hold Blue Top Tube Received (Received) Hold [place] Top Tube Received (Received) Lactic Acid Level 2.6mmol/L (0.4-2.0) Urine Color Yellow (YELLOW) Urine Appearance Clear (CLEAR,HAZY) Urine pH 5.0 (5.0-8.0) Urine Specific [place] 1.025 (1.003-1.035) Urine Protein 30mg/dL (NEG,TRACE) Urine Glucose (UA) 500mg/dL (NEGATIVE) Urine Ketones Tracemg/dL (NEGATIVE) Urine Occult Blood Negative (NEGATIVE) Urine Nitrite Negative (NEGATIVE) Urine Bilirubin Negative (NEGATIVE) Urine Urobilinogen Normalmg/dL (NORMAL) Urine Leukocyte Esterase Negative (NEGATIVE) Urine RBC 0-2/hpf (0-2) Urine WBC 6-10/hpf (0-5) Urine Epithelial Cells Moderate/hpf (NONE-MOD) Urine Crystals None seen (NONE SEEN) Urine Bacteria Few/hpf (NONE-FEW) Urine Hyaline Casts None/lpf (NONE) Urine Granular Casts None seen (NONE SEEN) Urine Waxy Casts None seen (NONE SEEN) Urine Red Blood Cell Casts None seen (NONE SEEN) Urine White Blood Cell Casts None seen (NONE SEEN) Urine Mucus Present (None Seen) Urine Trichomonas None seen (NONE SEEN) Urine Yeast None (NONE SEEN) Urinalysis Comment None Urine Culture Reflexed Indicated Microbiology 11/27/16 Blood Culture, Received Pending 11/27/16 Urine Culture, Received Pending Result Diagram: 11/27/16184511/27/16 184 Assessment & Plan Brandon Velasco is a 81 year old male with Diabetes mellitus type II, hypertension, hyperlipidemia, recent pancreatitis, and myelodysplastic syndrome who presented to [facility] emergency department via EMS complaining of fatigue 1. Acute Fatigue and weakness due to Hypovolemia. Present on admission Likely multifactorial with diarrhea and po fluid intake due to nausea. No clear source of infection at this time - continue IV fluids LR @ 150 cc/hr - Physical therapy assessment - treat underlying cause 2 Diarrhea, Acute. Present on admission Etiology unclear but C difficile will be ruled out given antibiotics exposure. Also consider Viral gastroenteritis - stool PCR c difficile 3 Lactic acidosis. Present on admission Due to tissue hypoxia. No evidence of acute infection - trending levels till normal - IV fluids continued 4 Chronic pancreatitis with recent flare. - Hospitalized 11/16/16 to 11/17/16 for acute pancreatitis and lipase was [address] scan showed mild pancreatitis. Etiology uncertain. - Lipase elevated at 118 could represent early pancreatitis - Continue to monitor but consider repeating CT scan to rule out complications such as abscess or pseudocysts 5 Diabetes mellitus type II - will continue Lantus 18 units at bedtime - Hold home metformin for now - medium correction lispro algorithm 6 Hypertension, chronic. - Continue amlodipine 10 mg, lisinopril 40 mg once daily and metoprolol tartrate 12.5 mg BID 7 Hyperlipidemia, chronic. - continue Atorvastatin 40 mg once daily at bedtime 8 Myelodysplastic syndrome, chronic. - Follows with oncology, not currently actively being treated and stable - Chronic stable anemia and stable thrombocytopenia - Acetaminophen as needed for mild pain/fever/headache - Bowel regimen as needed - Antiemetic as needed Patient admitted under inpatient status with expected length of stay > 2 midnights for severity of present symptoms, complexities of treatment plan and risk for adverse event . Resuscitation Status: CPR: Attempt Resuscitation Leon Pham MD Nov 27, 2016 22:44
[2016-11-27] MEDS ORDERED: Dextrose 10% 250 ML IV PRN (22:45)
[2016-11-27] MEDS ORDERED: Glucose 40% Oral Gel 15 Gm Tube PO PRN (22:45)
[2016-11-27 22:47] VITALS: BP 151/75; PULSE 75; RESP 16; O2SAT 98
[2016-11-27] MEDS: Insulin LISPRO 300 Unit/3 mL Inj SUBQ SCH (23:10)
[2016-11-27 23:19] VITALS: BP 148/87; PULSE 91; RESP 18; O2SAT 97
[2016-11-27 23:42] VITALS: PULSE 88
[2016-11-28] VITALS (7 sets, daily range): BP systolic 118–160; BP diastolic 63–82; PULSE 77–100; RESP 18–20; O2SAT 97–99
[2016-11-28] MEDS: Lactated Ringer's 1,000 ML IV SCH ×2 (00:51→08:07)
[2016-11-28] MEDS: Heparin 5,000 Unit/mL Inj SUBQ SCH ×3 (00:51→17:27)
--- NOTE | 2016-11-28 01:00 | NUR ---
admit note Pt is admitted to room 3030 around 23:30 from ED for dehydration, diarrhea, nausea, and weakness. Pt is A&Ox4, slightly weak. able to transfer self and walk to the bathroom with SBA. c/o tolerable nausea after getting zofran in ED. has had 2 small very soft/loose, brown stool; sample sent to the lab. IVF infusing as ordered. Pt is oriented to room and plan of care; he verbalized understanding. bed alarm on for safety.
[2016-11-28] MEDS: 0.9% Sodium Chloride 1,000 ML IV SCH ×2 (07:00→17:08)
[2016-11-28] MEDS: Insulin LISPRO 300 Unit/3 mL Inj SUBQ SCH ×4 (09:07→21:42)
[2016-11-28 10:07] LABS: Mean Corpuscular Hemoglobin 33.2 pg (27.0-35.0); Mean Corpuscular Volume 99.6 fL (81-100); Platelet Count 98 bil/L (150-400)
[2016-11-28 10:57] LABS: Magnesium 1.4 mg/dL (1.6-2.6); Phosphorus 2.1 mg/dL (2.5-4.9)
[2016-11-28 12:02] LABS: BASOPHILS % (AUTO) 0 % (0-3); EOSINOPHILS % (AUTO) 0 % (0-5); MONOCYTES % (AUTO) 10 % (4-12); NEUTROPHILS % (AUTO) 59 % (40-74)
--- NOTE | 2016-11-28 13:22 | NUR ---
Social Work-initial assessment: Data:See initial assessment. Pt is a 81 y/o male who was admitted on 11/27/16 for dehydration per H&P. Pt's insurance is adQ and PCP is Enrique Macedo MD. EMR reviewed. SW met with pt and Minal at bedside, SW role explained. Pt is alert and oriented x3. Pt resides at home with his in a single level home in [place] [facility]. Pt drives and does not use any DME at baseline. Pt has no history of HH or SNF. Pt has no [employer] driver care insurance or [place] benefits. SW discussed DPOA/ advanced directive, pt and confirm they have completed this, SW encouraged a copy to be brought in. PT has seen pt and cleared pt for home no needs, pt ambulating 400ft. Pt and decline any SW needs. Pt's to provide transport home at discharge. SW provided phone number and plan on white board in room. No anticipated discharge needs. SW will continue to follow if needs arise. Assessment:Pt who is independent at baseline. Plan:Pt to discharge home when medically stable via POV. No anticipated discharge needs. SW will continue to follow if needs arise. WILLY Grossman Addendum: 11/28/16 at 1326 by JOSEPH BALLARD Amended: Links added.
[2016-11-28 16:48] LABS: Unsaturated Iron Binding 64.1 ug/dL
[2016-11-28] MEDS ORDERED: Magnesium Sulf 2 Gm/50mL Water 2 GM in IV Premix 1 EACH IV ONE (17:00)
[2016-11-28] MEDS ORDERED: Magnesium Sulf 4 Gm/100 mL H2O 4 GM in IV Premix 1 EACH IV ONE (18:00)
[2016-11-28] MEDS: Insulin GLARgine 100 Unit/mL Syringe SUBQ SCH (21:43)
--- NOTE | 2016-11-28 23:38 | PCM.PNMED ---
Subjective Date of Service Nov 28, 2016 Subjective Patient is feeling a lot better today than he was last evening. He has no new complaints. Exam Vital Signs Vital Sign - Last Date Time Temp Pulse Resp B/P Pulse Ox O2 Delivery O2 Flow Rate FiO2 11/28/16 20:32 36.8 77 18 160/66 98 Room Air Intake and Output 11/27/16 11/27/16 11/28/16 Cumulative From/Thru 15:00 23:00 07:00 11/27/16 18:38 - 11/28/16 06:08 Intake Total 1000 ml 795 ml 1795 ml Output Total 800 ml 800 ml Balance 1000 ml -5 ml 995 ml Intake Oral 0 ml 0 ml IV Total 1000 ml 795 ml 1795 ml Output Urine Total 800 ml 800 ml # Bowel Movements 3 3 Exam General: Patient is in no apparent distress sitting up in bed reading the newspaper. HEENT: Head is atraumatic and normocephalic. Eyes: Pupils are equally round and reactive to light and accommodation. Extraocular muscles are intact. Sclera are white, anicteric. Subconjunctival mucosa is pale. Ears and nose are unremarkable. Oropharynx: There is no mucosal lesions, there is no thrush, there is no pharyngitis. Neck: Is supple, there are no nodes, or masses or tenderness. Chest: Is significant for a few basilar crackles right greater than left Heart: Rate, rhythm is regular. There is no murmur, rub or gallop. Abdomen: Good bowel sounds are present. Abdomen is soft, nontender, no organomegaly or masses were appreciated. Extremities: Are symmetrical and well perfused. There is no edema, there is no cellulitis, no rash. Neurologic: There are no focal neurological deficits. Cranial nerves II through XII are intact. There are no sensory or motor deficits. Psychiatric: Patients mood is calm and shows no sign of agitation. Genital: Deferred Rectal: Deferred Lab and Diagnostics Result Diagram: 11/28/16 1710 11/28/16 0955 Microbiology C. difficile toxin assay is negative. Blood cultures are pending. Urine cultures are pending X-Rays, CTs and MRIs PROCEDURE: X-RAY CHEST ONE VIEW, PORTABLE ([id number]) INDICATIONS: weakness, question of sepsis TECHNIQUE: One view of the chest was acquired. COMPARISON: [facility], CR, CHEST 1VW (PORTABLE), 04/24/2009, 14: 54. FINDINGS: Surgical changes and devices: None. Lungs and pleura: No pleural effusions or pneumothorax. Lungs are clear. Mediastinum: Mediastinal contours appear normal. Heart size is normal. Bones and chest wall: No suspicious bony lesions. Overlying soft tissues appear unremarkable. IMPRESSION: Negative chest. Dictated by: Jackson Croft M.D. on 11/27/2016 at 19:04 Approved by: Jackson Croft M.D. on 11/27/2016 at 19:05 Assessment & Plan Brandon Velasco is a 81 year old male with Diabetes mellitus type II, hypertension, hyperlipidemia, recent pancreatitis, and myelodysplastic syndrome who presented to [facility] emergency department via EMS complaining of fatigue 1. Acute Fatigue and weakness due to Hypovolemia. Present on admission Likely multifactorial with diarrhea and decreased po fluid intake due to nausea. Also likely patient is fatigue from anemia due to his myelodysplastic syndrome. No clear source of infection at this time - continue IV fluids with normal saline at 80 mL an hour for now - Physical therapy assessment to evaluate and treat. -Patient may also require a blood transfusion. He is scheduled to see Dr. Rosen on 12/03/2016 as an outpatient. 2 Diarrhea, Acute. Present on admission Etiology unclear but C difficile will be ruled out given antibiotics exposure. Also consider Viral gastroenteritis it, if diarrhea persists will check stool for gastrointestinal panel by PCR. - stool PCR for C difficile is negative 3 Lactic acidosis. Present on admission Due to tissue hypoxia. No evidence of acute infection - trending levels till normal - IV fluids continued 4 Chronic pancreatitis with recent flare. - Hospitalized 11/16/16 to 11/17/16 for acute pancreatitis and lipase was [address] scan showed mild pancreatitis. Etiology uncertain. - Lipase elevated at 118 could represent early pancreatitis - Continue to monitor but consider repeating CT scan to rule out complications such as abscess or pseudocysts 5 Diabetes mellitus type II - We will continue Lantus 18 units at bedtime - Hold home metformin for now - Continue medium correction lispro algorithm 6 Hypertension, chronic. - Continue amlodipine 10 mg, lisinopril 40 mg once daily and metoprolol tartrate 12.5 mg BID 7 Hyperlipidemia, chronic. - We will continue Atorvastatin 40 mg once daily at bedtime 8 Myelodysplastic syndrome, chronic. - Follows with oncology, not currently actively being treated and stable - Chronic stable anemia and stable thrombocytopenia - Acetaminophen as needed for mild pain/fever/headache - Bowel regimen as needed - Antiemetic as needed Disposition: Patient will likely another 24-48 hours for evaluation and treatment of the above problems. . Pain Evaluation: Adequate Pain Control VTE Prophylaxis: Sub-Q Heparin (Unfractionated) Resuscitation Status: CPR: Attempt Resuscitation Dale Narayanan MD Nov 28, 2016 23:38
[2016-11-29] VITALS (9 sets, daily range): BP systolic 149–179; BP diastolic 72–80; PULSE 70–96; RESP 18; O2SAT 95–99
[2016-11-29] MEDS: Heparin 5,000 Unit/mL Inj SUBQ SCH ×3 (00:46→16:19)
[2016-11-29] MEDS: 0.9% Sodium Chloride 1,000 ML IV SCH ×2 (04:28→17:39)
[2016-11-29 06:01] LABS: Mean Corpuscular Hemoglobin 32.9 pg (27.0-35.0); Mean Corpuscular Volume 98.8 fL (81-100); Platelet Count 114 bil/L (150-400)
[2016-11-29 06:41] LABS: Magnesium 2.5 mg/dL (1.6-2.6)
[2016-11-29 07:45] LABS: BASOPHILS % (AUTO) 0 % (0-3); EOSINOPHILS % (AUTO) 0 % (0-5); MONOCYTES % (AUTO) 6 % (4-12); NEUTROPHILS % (AUTO) 52 % (40-74)
[2016-11-29] MEDS: Insulin LISPRO 300 Unit/3 mL Inj SUBQ SCH ×4 (10:14→20:58)
--- NOTE | 2016-11-29 13:31 | NUR ---
D/c from PT. Pt safe to amb w/nsg and no AD SBA
--- NOTE | 2016-11-29 14:45 | NUR ---
CHEST PAIN Pt reports 10/10 shart chest pain, center of torso. States its different than previous pancreatitis, not in arms or neck. Pt is grasping bedrails and reporting SOB. Tele: SR 87 w/ freq PVCs and PACs. paged to informed. New orders for XRAY, EKG, Trops, and IV Morphine. Administered IV Morphine. Pt reports CP is reduced to 8/10 but returns shortly after. CXR taken and 12L EKG captured showing no significant changes. 2nd dose IV Morphine ordered and administered. CP/symptoms continues. MD on site, orders for IV Toradol, PO Flexeril, and another dose IV Morphine placed. Medications administered, pt later reports pain is reduced down to 2/10.
--- NOTE | 2016-11-29 14:50 | NUR ---
BASHIR Signed @ 221PM
--- NOTE | 2016-11-29 16:00 | DRSVH ---
PROCEDURE: CT CHEST WITH CONTRAST ([id number]) INDICATIONS: Severe Chest Pain TECHNIQUE: After the administration of intravenous contrast, 5 mm thick sections acquired from the pulmonary api elpidio to the posterior costophrenic angles. 7 mm thick coronal and sagittal MIP reformats were acquire d. For radiation dose reduction, the following was used: automated exposure control, adjustment of mA and/or kV according to patient size. COMPARISON: [facility], CT, CT ABD PELVIS W CON, 11/16/2016, 3:36. FINDINGS: Image quality: Excellent. Lungs and pleura: No acute air space opacities. No pleural effusions or pneumothorax. Central and peripheral airways are patent and normal in caliber. Mediastinum: Heart size is normal. No pericardial effusion. No mediastinal or hilar adenopathy by size criteria. Thoracic aorta and central pulmonary arteries are normal in size. Esophagus is ramila l in caliber. Mild hiatal hernia. Bones and chest wall: No suspicious bony lesions. No vertebral body compression fractures. There ar e several borderline enlarged lymph nodes within the axilla bilaterally, the largest measuring 10 mm on the right. Thyroid gland is unremarkable. Abdomen: There is a 4 mm focus of low attenuation within the posterior spleen, unchanged. Otherwise, visualized upper abdominal solid organs appear normal. Upper abdominal bowel loops are normal in ca liber. IMPRESSION: 1. No visualized cause of chest pain. 2. Borderline enlarged axillary nodes as above. 3. Punctate sub-centimeter low attenuation focus within the spleen, possibly cyst. Dictated by: Zoraida Mota M.D. on 11/29/2016 at 15:37 Approved by: Zoraida Mota M.D. on 11/29/2016 at 15:58
[2016-11-29] MEDS: Ketorolac 15 mg/mL Inj IVPUSH PRN (16:18)
--- NOTE | 2016-11-29 16:55 | DRSVH ---
PROCEDURE: X-RAY CHEST, TWO VIEWS ([id number]) INDICATIONS: Chest Pain TECHNIQUE: 2 views of the chest were acquired. COMPARISON: [facility], CR, XR CHEST 1VW (PORTABLE), 11/27/2016, 18:50. [facility], CR, XR CHEST 2VW, 11/20/2016, 15:53. FINDINGS: Surgical changes and devices: None. Lungs and pleura: No pleural effusions or pneumothorax. Lungs are clear. Mediastinum: Mediastinal contours are normal. Heart size is normal. Bones and chest wall: No suspicious bony abnormalities. Soft tissues appear unremarkable. IMPRESSION: No acute cardiopulmonary disease. Dictated by: Jonathon Randhawa [facility] Interpreted: Zoraida Mota MD on 11/29/2016 at 10:02 Approved by: Zoraida Mota M.D. on 11/29/2016 at 16:53
[2016-11-29] MEDS: Insulin GLARgine 100 Unit/mL Syringe SUBQ SCH (20:57)
[2016-11-30] VITALS (9 sets, daily range): BP systolic 143–195; BP diastolic 59–89; PULSE 60–105; RESP 18–20; O2SAT 92–94
[2016-11-30] MEDS: Heparin 5,000 Unit/mL Inj SUBQ SCH ×3 (00:54→16:26)
[2016-11-30] MEDS: Ketorolac 15 mg/mL Inj IVPUSH PRN ×3 (00:54→15:04)
--- NOTE | 2016-11-30 01:06 | PCM.PNMED ---
Subjective Date of Service Nov 30, 2016 Subjective Patient complains kind of excruciating mid sternal chest pain this morning starting at 5 AM and progressively got worse. The pain was not responsive to IV morphine twice however did respond to IV Toradol and oral Flexeril. Patient thinks that he "slept wrong" he has no other new complaints. No he has no fever , no chills, no diaphoresis, no nausea no vomiting no diarrhea. Exam Vital Signs Vital Sign - Last Date Time Temp Pulse Resp B/P Pulse Ox O2 Delivery O2 Flow Rate FiO2 11/30/16 00:43 36.7 90 18 182/79 94 Room Air Intake and Output 11/29/16 11/29/16 11/30/16 Cumulative From/Thru 15:00 23:00 07:00 11/27/16 18:38 - 11/29/16 18:26 Intake Total 980 ml 5503 ml Output Total 3500 ml Balance 980 ml 2003 ml Intake Oral 1672 ml IV Total 980 ml 3831 ml Output Urine Total 3500 ml # Bowel Movements 4 Exam General: Patient is in no apparent distress sitting up in bed reading the newspaper. HEENT: Head is atraumatic and normocephalic. Eyes: Pupils are equally round and reactive to light and accommodation. Extraocular muscles are intact. Sclera are white, anicteric. Subconjunctival mucosa is pale. Ears and nose are unremarkable. Oropharynx: There is no mucosal lesions, there is no thrush, there is no pharyngitis. Neck: Is supple, there are no nodes, or masses or tenderness. Chest: Is significant for a few basilar crackles right greater than left. There is clearly left parasternal chest wall tenderness to palpation which reproduces the exact pain that he is having this morning. Heart: Rate, rhythm is regular. There is no murmur, rub or gallop. Abdomen: Good bowel sounds are present. Abdomen is soft, nontender, no organomegaly or masses were appreciated. Extremities: Are symmetrical and well perfused. There is no edema, there is no cellulitis, no rash. Neurologic: There are no focal neurological deficits. Cranial nerves II through XII are intact. There are no sensory or motor deficits. Psychiatric: Patients mood is calm and shows no sign of agitation. Genital: Deferred Rectal: Deferred Lab and Diagnostics Result Diagram: 11/29/16 0545 11/29/16 0545 Microbiology C. difficile toxin assay is negative. Blood cultures are pending. Urine cultures are pending X-Rays, CTs and MRIs PROCEDURE: X-RAY CHEST ONE VIEW, PORTABLE ([id number]) INDICATIONS: weakness, question of sepsis TECHNIQUE: One view of the chest was acquired. COMPARISON: [facility], CR, CHEST 1VW (PORTABLE), 04/24/2009, 14: 54. FINDINGS: Surgical changes and devices: None. Lungs and pleura: No pleural effusions or pneumothorax. Lungs are clear. Mediastinum: Mediastinal contours appear normal. Heart size is normal. Bones and chest wall: No suspicious bony lesions. Overlying soft tissues appear unremarkable. IMPRESSION: Negative chest. Dictated by: Jackson Croft M.D. on 11/27/2016 at 19:04 Approved by: Jackson Croft M.D. on 11/27/2016 at 19:05 Assessment & Plan Brandon Velasco is a 81 year old male with Diabetes mellitus type II, hypertension, hyperlipidemia, recent pancreatitis, and myelodysplastic syndrome who presented to [facility] emergency department via EMS complaining of fatigue 1. Acute Fatigue and weakness due to Hypovolemia. Present on admission Likely multifactorial with diarrhea and decreased po fluid intake due to nausea. Also likely patient is fatigue from anemia due to his myelodysplastic syndrome. No clear source of infection at this time - We will continue IV fluids with normal saline at 80 mL an hour for now - Physical therapy assessment to evaluate and treat. - Patient may also require a blood transfusion. He is scheduled to see Dr. Rosen on 12/03/2016 as an outpatient. 2 Diarrhea, Acute. Present on admission Etiology unclear but C difficile will be ruled out given antibiotics exposure. Also consider Viral gastroenteritis it, if diarrhea persists will check stool for gastrointestinal panel by PCR. - stool PCR for C difficile is negative 3 Lactic acidosis. Present on admission Due to tissue hypoxia. No evidence of acute infection - trending levels till normal - IV fluids continued 4 Chronic pancreatitis with recent flare. - Hospitalized 11/16/16 to 11/17/16 for acute pancreatitis and lipase was [address] scan showed mild pancreatitis. Etiology uncertain. - Lipase elevated at 118 could represent early pancreatitis. Will check lipase in a.m. - Continue to monitor but consider repeating CT scan to rule out complications such as abscess or pseudocysts 5 Diabetes mellitus type II - We will continue Lantus 18 units at bedtime - Hold home metformin for now - Continue medium correction lispro algorithm 6 Hypertension, chronic. - Continue amlodipine 10 mg, lisinopril 40 mg once daily and metoprolol tartrate 12.5 mg BID 7 Hyperlipidemia, chronic. - We will continue Atorvastatin 40 mg once daily at bedtime 8. Myelodysplastic syndrome, chronic. - Follows with oncology, not currently actively being treated and stable - Chronic stable anemia and stable thrombocytopenia 9. Severe costochondritis with difficult to control chest pain. - Cardiac workup was negative with normal EKG and normal troponin - Chest x-ray and chest CT scan failed to reveal source of patient's pain - Pain was reproduced with palpation of the chest consistent with costochondritis - Continue IV Toradol and oral Flexeril with morphine when necessary - Check serial troponins. - Acetaminophen as needed for mild pain/fever/headache - Bowel regimen as needed - Antiemetic as needed Disposition: Patient will likely another 24-48 hours for evaluation and treatment of the above problems. Dr. Zohaib Jc following a.m. . Pain Evaluation: Adequate Pain Control VTE Prophylaxis: Sub-Q Heparin (Unfractionated) Resuscitation Status: CPR: Attempt Resuscitation Dale Narayanan MD Nov 30, 2016 01:06
[2016-11-30 05:02] LABS: Mean Corpuscular Hemoglobin 32.6 pg (27.0-35.0); Mean Corpuscular Volume 99.6 fL (81-100); Platelet Count 102 bil/L (150-400)
[2016-11-30] MEDS: 0.9% Sodium Chloride 1,000 ML IV SCH (05:45)
[2016-11-30 05:51] LABS: BASOPHILS % (AUTO) 0 % (0-3); EOSINOPHILS % (AUTO) 0 % (0-5); MONOCYTES % (AUTO) 8 % (4-12); NEUTROPHILS % (AUTO) 40 % (40-74)
[2016-11-30 06:11] LABS: Magnesium 1.9 mg/dL (1.6-2.6)
[2016-11-30 06:52] LABS: TROPONIN T 0.01 ug/L (0.0-0.011)
[2016-11-30] MEDS: Insulin LISPRO 300 Unit/3 mL Inj SUBQ SCH ×4 (07:40→21:14)
--- NOTE | 2016-11-30 11:01 | NUR ---
Social Work: Readiness for d/c Data: Pt is on day 3 of hospitalization. EMR reviewed. Pt discussed in rounds, MD states pt likely to d/c in 1-2 days. PT continues to recommend home, pt walking over 400 ft. No d/c planning needs identified at this time. TERMINAL WORKER will continue to follow if needs arise. Assessment: Pt who is independent at baseline. Plan: Pt will d/c home via POV when medically stable, possibly in 1-2 days per MD. No d/c planning needs identified at this time. TERMINAL WORKER will continue to follow if needs arise. WILLY Pham
--- NOTE | 2016-11-30 13:57 | PCM.PNMED ---
Subjective Date of Service Nov 30, 2016 Subjective He is seen today in his room to follow-up for costochondritis/chest pain. A CT scan done without contrast was normal. A d-dimer checked this morning is mildly elevated at 0.94. He remains tender on the left lower sternal costal area. The white blood count is 10.0. The hemoglobin has dropped from 8.3-7.7. There Has been no obvious signs of GI bleeding. Toradol was started yesterday and continues to be effective. Exam Vital Signs Vital Sign - Last Date Time Temp Pulse Resp B/P Pulse Ox O2 Delivery O2 Flow Rate FiO2 11/30/16 04:29 37.4 60 18 176/76 93 Room Air Intake and Output 11/29/16 11/29/16 11/30/16 Cumulative From/Thru 15:00 23:00 07:00 11/27/16 18:38 - 11/30/16 05:46 Intake Total 980 ml 1912 ml 7415 ml Output Total 850 ml 4350 ml Balance 980 ml 1062 ml 3065 ml Intake Oral 950 ml 2622 ml IV Total 980 ml 962 ml 4793 ml Output Urine Total 850 ml 4350 ml # Bowel Movements 4 Exam Heart is regular rate and rhythm without murmur. Lungs are clear to auscultation bilaterally. Extremities have no ankle edema. On the left lower sternal border there is some mild tenderness, by reports much improved from yesterday when he was exquisitely tender in that area. Lab and Diagnostics Result Diagram: 11/30/16 0445 11/30/16 0445 Microbiology C. difficile toxin assay is negative. Blood cultures are pending. Urine cultures are pending X-Rays, CTs and MRIs PROCEDURE: X-RAY CHEST ONE VIEW, PORTABLE ([id number]) INDICATIONS: weakness, question of sepsis TECHNIQUE: One view of the chest was acquired. COMPARISON: [facility], , CHEST 1VW (PORTABLE), 04/24/2009, 14: 54. FINDINGS: Surgical changes and devices: None. Lungs and pleura: No pleural effusions or pneumothorax. Lungs are clear. Mediastinum: Mediastinal contours appear normal. Heart size is normal. Bones and chest wall: No suspicious bony lesions. Overlying soft tissues appear unremarkable. IMPRESSION: Negative chest. Dictated by: Jackson Croft M.D. on 11/27/2016 at 19:04 Approved by: Jackson Croft M.D. on 11/27/2016 at 19:05 Assessment & Plan Brandon Velasco is a 81 year old male with Diabetes mellitus type II, hypertension, hyperlipidemia, recent pancreatitis, and myelodysplastic syndrome who presented to [facility] emergency department via EMS complaining of fatigue 1. Acute Fatigue and weakness due to Hypovolemia. Present on admission Likely multifactorial with diarrhea and decreased po fluid intake due to nausea. Also likely patient is fatigue from anemia due to his myelodysplastic syndrome. No clear source of infection at this time - We will stop the IV fluids and see how much oral intake he is able to maintain. He seems to be doing well. - Physical therapy assessment to evaluate and treat. - Patient may also require a blood transfusion. He is scheduled to see Dr. Rosen on 12/03/2016 as an outpatient. 2 Diarrhea, Acute. Present on admission Etiology unclear but C difficile was ruled out. Also consider Viral gastroenteritis it, if diarrhea persists will check stool for gastrointestinal panel by PCR. - stool PCR for C difficile is negative 3 Lactic acidosis. Present on admission Due to tissue hypoxia. No evidence of acute infection Resolved 4 Chronic pancreatitis with recent flare. - Hospitalized 11/16/16 to 11/17/16 for acute pancreatitis and lipase was [address] scan showed mild pancreatitis. Etiology uncertain. - Lipase elevated at 118 could represent early pancreatitis. Will check lipase in a.m. - Continue to monitor but consider repeating CT scan to rule out complications such as abscess or pseudocysts 5 Diabetes mellitus type II - We will continue Lantus 18 units at bedtime - Hold home metformin for now - Continue medium correction lispro algorithm 6 Hypertension, chronic. - Continue amlodipine 10 mg, lisinopril 40 mg once daily and metoprolol tartrate 12.5 mg BID 7 Hyperlipidemia, chronic. - We will continue Atorvastatin 40 mg once daily at bedtime 8. Myelodysplastic syndrome, chronic. - Follows with oncology, not currently actively being treated and stable - Chronic stable anemia and stable thrombocytopenia 9. Severe costochondritis with difficult to control chest pain. - Cardiac workup was negative with normal EKG and normal troponin - Chest x-ray and chest CT scan failed to reveal source of patient's pain - Pain was reproduced with palpation of the chest consistent with costochondritis - Continue IV Toradol and oral Flexeril with morphine when necessary - Check serial troponins. - Because of the mildly elevated d-dimer will Check lower extremity venous Dopplers and repeat CT angiography of chest if indicated. - Acetaminophen as needed for mild pain/fever/headache - Bowel regimen as needed - Antiemetic as needed Disposition: Patient will likely another 24-48 hours for evaluation and treatment of the above problems. Zohaib Pena M.D.. . VTE Prophylaxis: Sub-Q Heparin (Unfractionated) Resuscitation Status: CPR: Attempt Resuscitation Libby Pena MD Nov 30, 2016 07:36
--- NOTE | 2016-11-30 16:41 | NUR ---
Biopsy/Removal of Nodules Pt family request information about nodules on pt L shoulder and on neck/jaw. MD informed and biopsy scheduled for tomorrow AM. Surgeon Radha Ibarra in room to assess, consent form signed and witnessed. Pt to be on Clear liquids after midnight till 6AM, then NPO. Board updated and will report to NOC shift.
--- NOTE | 2016-11-30 16:44 | NUR ---
Pain Pt reports sharp gradual pain up as high as 10/10. Administered medications as allowed per schedule, alternating between to allow for continual pain control. Pt at times will not report increasing pain as instructed. Pt very tired and sleepy. Inquiring on pt pain levels more often and offering pain medications when necessary.
--- NOTE | 2016-11-30 16:55 | DRSVH ---
PROCEDURE: US EXTREMITY SONOGRAM LIMITED ([id number]) INDICATIONS: Neck and left arm masses TECHNIQUE: Real-time scanning was performed of the anterior neck, with image documentation. COMPARISON: None. FINDINGS: Solid hypoechoic and heterogeneous mass is present corresponding to one of the palpable abn ormalities measuring 7.5 x 6.1 x 8.2 mm within the subcutaneous tissues adjacent to the mass there ar e several morphologically normal appearing lymph nodes present largest measuring 5.1 mm. Within the left anterior upper arm there is a hyperechoic soft tissue mass with central sonolucency measuring 1. 4 x 0.9 x 1.3 cm. Mild internal vascularity is present. IMPRESSION: 1. 2 abnormal appearing, mildly vascular soft tissue masses one within the anterior neck and the othe r within the left upper arm. Differential considerations include both benign and malignant etiologies . If indicated sonographically directed fine needle aspiration could be performed or alternatively so ft tissue MRI. 2. Several morphologically normal appearing lymph nodes within the anterior neck largest measuring 5 mm. Dictated by: Jonathon FELIPE Interpreted: Amna Lyman MD on 11/30/2016 at 16:46 Transcribed by: VIPIN on 11/30/2016 at 16:54 Approved by: Amna Lyman M.D. on 11/30/2016 at 16:58
--- NOTE | 2016-11-30 16:55 | DRSVH ---
PROCEDURE: US VENOUS LEG DUPLEX BILATERAL INDICATIONS: Elevated Ddimer TECHNIQUE: Real-time imaging, as well as color and pulse Doppler interrogation, were performed of the deep veins of both legs from the inguinal ligament to the popliteal fossa. COMPARISON: None. FINDINGS: The deep veins are normally compressible, and free of intraluminal thrombus. Color and pu lse Doppler demonstrate normal phasic intravascular flow. There is normal augmentation response to d istal compression maneuver. IMPRESSION: No deep venous thrombosis identified within either the left or right lower extremities. Dictated by: Jonathon FELIPE Interpreted: Amna Lyman MD on 11/30/2016 at 16:20 Approved by: Amna Lyman M.D. on 11/30/2016 at 16:53
--- NOTE | 2016-11-30 17:27 | CONS ---
[address] [address] CONSULTATION REPORT PATIENT: GIO ZARATE : 1935 MR#: [id number] ADMIT: 11/27/2016 JOB ID: [id number] DATE OF SERVICE: 11/30/2016 REQUESTED BY: Zohaib Pena MD HISTORY OF PRESENT ILLNESS: An 81-year-old man whom I was asked to see for consideration of biopsy, to perform a biopsy on two lesions of unknown etiology. One is a purpuric lesion on the left upper arm and the other is a submental mass. He has a complex past medical history with myelodysplastic syndrome. From that he has a chronic anemia and low but adequate platelets. His white blood cell count is normal. He was admitted to the hospital with severe dehydration. He also had chest pain and it is felt secondary to severe costochondritis. On admission he also had a lactic acidosis but that has resolved. The patient states that the purpuric lesion has been present for several weeks. He is uncertain as to when the submental lesion developed. They both are nontender. PAST MEDICAL HISTORY: Illnesses: 1. Myelodysplastic syndrome. 2. Insulin-dependent type 2 diabetes mellitus. 3. Hypertension. 4. Hyperlipidemia. 5. Chronic pancreatitis. 6. GERD. 7. BPH. Operations: 1. Arthroscopic knee surgery. 2. Bilateral cataract extractions. 3. Tonsillectomy. MEDICATIONS: Current medications in the hospital: He is on subcutaneous insulin but no other anticoagulants. ALLERGIES: Fentanyl. FAMILY HISTORY: Negative for myelodysplastic syndrome or lymphomas. REVIEW OF SYSTEMS: He has eaten solid food earlier this afternoon. PHYSICAL EXAMINATION: Elderly, fatigued appearing. No distress. BMI 25. Temperature is 36.9. Brachial blood pressure 169/76, pulse 83, respiratory rate 18, O2 sat is 94% on room air. HEENT: PERRLA. EOMI. He does have a nontender submental mass. There is no obvious sinus tract. There is no erythema. There is no skin retraction. It is nontender. Neck: No appreciable adenopathy. Lungs: Clear. Cardiac: Regular rhythm. Extremities: He has a purpuric lesion on his left upper arm with associated subcutaneous mass. The whole thing measures about 2 cm. I do not appreciate any axillary adenopathy. Skin: No other purpuric lesions. IMPRESSION: Myelodysplastic syndrome, now with a purpuric nodule on his left upper arm with an associated subcutaneous mass and also a submental mass, both of uncertain behavior. I agree that they should be biopsied and malignancy ruled out that includes lymphoma and flow cytometry will be done on the submental mass. The patient agrees. He will be scheduled for tomorrow. I am not here tomorrow and I will contact my partner, Dr. Cruz Perez, who will perform the operation. Informed consent is obtained. Thank you very much.
[2016-11-30] MEDS: Insulin GLARgine 100 Unit/mL Syringe SUBQ SCH (21:13)
[2016-12-01] VITALS (17 sets, daily range): BP systolic 131–175; BP diastolic 65–87; PULSE 93–122; RESP 9–22; O2SAT 93–99
[2016-12-01] MEDS: Heparin 5,000 Unit/mL Inj SUBQ SCH ×3 (00:24→17:06)
--- NOTE | 2016-12-01 05:41 | NUR ---
PT ACTIVITY/PAIN/TELEMETRY Pt has mostly been in bed and up to side of bed to use urinal. Pt up to BR x 2. Pt appears SOB w/ activity, pt states this is not a new finding for him, pt states he feels SOB at home as well. Pt states that he recovers after resting. Pt placed on oxygen to help alleviate dyspnea, 1L NC. Pt c/o "5" pain "in middle of my sternum" approx 0500. EKG ordered, IV morphine given, oxygen turned up to 2L. HR is irregular per auscultation, 101-110. Per EKG, A.flutter w/ 2:1 AV block. notified, rec'd orders to initially given metoprolol. EKGs sent down to 2nd floor charge and electronic device monitor to evaluate, who were able to identify P-waves. Per previous visit note on 11/21/16, pt was noted to have AV block, with recommendations to stop Norvasc and metoprolol. notified again, metoprolol not given, orders discontinued at this time. Upon reassessment of chest pain, pt states improvement of pain, at "3". Pt sleeping at this time. Continue to monitor HR and chest pain. Call light in reach. Bed alarm on. Intentional rounding.
[2016-12-01 08:36] LABS: Mean Corpuscular Hemoglobin 32.6 pg (27.0-35.0); Mean Corpuscular Volume 99.2 fL (81-100)
[2016-12-01] MEDS: Insulin LISPRO 300 Unit/3 mL Inj SUBQ SCH ×4 (08:37→21:24)
[2016-12-01] MEDS ORDERED: HYDROmorphone 2 mg/mL Inj ONE (10:50)
[2016-12-01] MEDS ORDERED: Propofol 10 mg/mL 20 mL Inj ONE (10:50)
--- NOTE | 2016-12-01 11:29 | PCM.PNMED ---
Subjective Date of Service Dec 01, 2016 Subjective He is seen today in his room to follow-up the costochondritis and the neck/left arm skin masses. He is discussed with his and several of his children. Dr. Perez indicates he will be taking him for neck and left arm skin biopsy around noon today. He says he feels much better. There is no longer tenderness over the costochondral junction and clearly the anti-inflammatory/ pain medicines are effective today compared to yesterday Exam Vital Signs Vital Sign - Last Date Time Temp Pulse Resp B/P Pulse Ox O2 Delivery O2 Flow Rate FiO2 12/01/16 10:28 108 12/01/16 10:23 36.7 157/78 93 Nasal Cannula 2.00 12/01/16 04:42 22 Intake and Output 11/30/16 11/30/16 12/01/16 Cumulative From/Thru 15:00 23:00 07:00 11/27/16 18:38 - 12/01/16 06:23 Intake Total 586 ml 780 ml 250 ml 9031 ml Output Total 350 ml 500 ml 5200 ml Balance 586 ml 430 ml -250 ml 3831 ml Intake Oral 780 ml 250 ml 3652 ml IV Total 586 ml 5379 ml Output Urine Total 350 ml 500 ml 5200 ml # Bowel Movements 4 Exam Heart is regular rate and rhythm with frequent early beats. There is no murmur. There is no ankle edema Lungs are clear to auscultation bilaterally There is no chest wall tenderness along the left sternum. IVs and Medications Medications Reviewed: Medications were reviewed in detail Lab and Diagnostics Result Diagram: 12/01/16 0826 11/30/16 0445 Microbiology C. difficile toxin assay is negative. Blood cultures are pending. Urine cultures are pending X-Rays, CTs and MRIs PROCEDURE: X-RAY CHEST ONE VIEW, PORTABLE ([id number]) INDICATIONS: weakness, question of sepsis TECHNIQUE: One view of the chest was acquired. COMPARISON: [facility], , CHEST 1VW (PORTABLE), 04/24/2009, 14: 54. FINDINGS: Surgical changes and devices: None. Lungs and pleura: No pleural effusions or pneumothorax. Lungs are clear. Mediastinum: Mediastinal contours appear normal. Heart size is normal. Bones and chest wall: No suspicious bony lesions. Overlying soft tissues appear unremarkable. IMPRESSION: Negative chest. Dictated by: Jackson Croft M.D. on 11/27/2016 at 19:04 Approved by: Jackson Croft M.D. on 11/27/2016 at 19:05 Assessment & Plan Brandon Velasco is a 81 year old male with Diabetes mellitus type II, hypertension, hyperlipidemia, recent pancreatitis, and myelodysplastic syndrome who presented to [facility] emergency department via EMS complaining of fatigue 1. Acute Fatigue and weakness due to Hypovolemia. Present on admission This seems to have resolved. - Patient did not need a blood transfusion, he is scheduled to see Dr. Rosen on 12/03/2016 as an outpatient. 2 Diarrhea, Acute. Present on admission This has resolved. 3 Lactic acidosis. Present on admission This has resolved. 4 Chronic pancreatitis with recent flare. - Hospitalized 11/16/16 to 11/17/16 for acute pancreatitis and lipase was [address] scan showed mild pancreatitis. Etiology uncertain. - Lipase elevated at 118 could represent early pancreatitis. No signs of recurrence. - Continue to monitor but consider repeating CT scan to rule out complications such as abscess or pseudocysts 5 Diabetes mellitus type II - We will continue Lantus 18 units at bedtime - Hold home metformin for now - Continue medium correction lispro algorithm - A1c is 9.6. 6 Hypertension, chronic. - Continue amlodipine 10 mg, lisinopril 40 mg once daily and metoprolol tartrate 12.5 mg BID 7 Hyperlipidemia, chronic. - We will continue Atorvastatin 40 mg once daily at bedtime 8. Myelodysplastic syndrome, chronic. - Follows with oncology, not currently actively being treated and stable - Chronic stable anemia and stable thrombocytopenia - The hemoglobin has risen to 8.6 today. - With the suddenly growing skin lesion on the left arm and the left neck soft tissue lesion a lymphoma process is suspected. He could certainly have some other neoplasm. - Surgery is taking him for biopsies today. 9. Severe costochondritis with difficult to control chest pain. - Cardiac workup was negative with normal EKG and normal troponin - Chest x-ray and chest CT scan failed to reveal source of patient's pain - Pain was reproduced with palpation of the chest consistent with costochondritis - Continue IV Toradol and oral Flexeril with morphine when necessary - The d-dimer was up a little bit and so venous Dopplers were done of the legs which were normal. - Acetaminophen as needed for mild pain/fever/headache - Bowel regimen as needed - Antiemetic as needed Disposition: Patient will likely be here another 24 hours for evaluation and treatment of the above problems. He will then return to family care at his home. Zohaib Pena M.D.. . Pain Evaluation: Adequate Pain Control VTE Prophylaxis: Sub-Q Heparin (Unfractionated) Resuscitation Status: CPR: Attempt Resuscitation Libby Pena MD Dec 01, 2016 10:31
--- NOTE | 2016-12-01 15:13 | PCM.HPANE ---
Patient Data Surgeon Admitting Provider:Leon Pham MD Attending Provider:Leon Pham MD Primary Care Physician:Enrique Macedo MD Other Provider: Reason for Visit Dehydration,Diarrhea,Nausea,Weakness Ht/WT & BMI Height (Feet): 5 Height (Inches): 10.00 Weight (Kilograms): 79.300 Body Mass Index 25.03 Allergies Coded Allergies: fentanyl (Verified Adverse Reaction, Intermediate, Nausea, 11/27/16) Past Anesthesia History Anesthesia History: Denies:: Anesthesia Reactions Diabetes History Hx Diabetes?: Yes Current Bedside Blood Glucose: 157 MRSA MRSA: No Medications Hypertension Medication: No Home Meds Incl Beta Antonieta: No Active Scripts Nitroglycerin SL (Nitrostat)0.4 Mg Tab.subl0.4 Mg SL Q5MIN PRN For Chest Pain # 10 TAB.SL Take one every 5 minutes for a maximum of 3 times for chest pain Prov:DelfinSissy Anthony BENÍTEZ 11/21/16 Reported Medications Cyanocobalamin (Vitamin B12)500 Mcg Tablet1,000 Mcg PO DAILY 11/20/16 Metformin (Glucophage)1,000 Mg Tablet1,000 Mg PO BIDAC #180 11/20/16 Melatonin/Pyridoxine (Melatonin 3 mg Tablet)1 Each Tablet1 Each PO DAILY 07/27/15 Multivitamin (Multi Vitamin Daily)1 Each Tablet1 Each PO DAILY Ref 0 07/27/15 Aspirin 81 Mg Avnsot11 Mg PO DAILY Ref 0 07/27/15 Insulin Glargine (Lantus U100 Insulin Vial)100 Unit/Ml Vial18 Unit SUBQ HS Ref 0 07/27/15 Simvastatin (Zocor)10 Mg Mruafg22 Mg PO HS Ref 0 07/27/15 Lisinopril 40 Mg Mvbldm31 Mg PO DAILY Ref 0 07/27/15 History History of ENT Problems?: Yes HEENT History: Positive for:: Cataracts (cataract surgery) Denies:: Dysphagia Sinus Problem Denture Type: None Teeth Condition: Within Normal Limits Hx of Heart Problems?: Yes Cardiovascular History: Positive for:: Hypertension Irregular Heartbeat Denies:: Cardiac Surgery Chest Pain Congestive Heart Failure Edema Heart Murmur Pacemaker Thrombophlebitis Hx of Respiratory Problem?: Yes Respiratory History: Denies:: Asthma COPD Chest Surgery Dyspnea Emphysema Hemoptysis Pneumonia Tuberculosis Hx Neurologic Problems?: No Hx of GI Problems?: Yes Other GI Pertinent History: pancreatitis Hx of Problems?: No Genitourinary History: Positive for:: Urinary Tract Infection (previous hospitalization; just finished his ABT) Denies:: HX of Hemodialysis Kidney Stones HX of Peritoneal Dialysis: No Male Hx: Positive for:: Prostate Problems (enlarged) Denies:: Scrotal Mass Testicular Surgery Hx Musculoskeletal Problems?: Yes Musculoskeletal History: Positive for:: Back Injury (04/15/2009 Being controlled with meds) Denies:: Joint Replacement Musculoskeletal Trauma Hx of Psycho/Social Problems?: No Hx Surgeries?: Yes (Cataract surgery, both knee surgeries) Hx Any Other Health Problems?: Yes Other History: Positive for:: Cancer (Blood cancer) Endocrine Disease Hospitalization (pancreatitis in October 2016; UTI last week) Denies:: Thyroid Disease History Blood Transfusions: Positive for:: Accept Blood Products? Denies:: Blood Transfuse Reaction Blood Transfusions Hx Diabetes: YesBedside Blood Glucose: 157 Other Pertinent History: Back pain (2008); Denis knee arthroscopy (1990, 1993); tonsilectomy (1939) Hx Alcohol Use: Yes (Glass of wine a day quit after previous hospitalization) Hx Substance Use: No Smoking Status: Former Smoker Have You Smoked inLast 12 mo: No Stop/Bang Treated for Sleep Apnea?: No Do You Have a CPAP Machine?: No S-Snoring: Do You Snore Loudly: No T-Tired: feel tired, fatigued: No O-Obsered: Observed not breath: No P-Blood Pressure: treated: Yes B- Body Mass Index > 35 kg/m2: No A- Age over 50: Yes N- Neck Large Circumference: No G- Gender Male: Yes JEM Total Score: 2 JEM Risk Assessment: Low Risk, <3 Yes Risk Assessment Category Category 1A: Patient has history of documented sleep apnea, and HAS NOT received any narcotic, sedative or anesthesia administration during this stay. Category 1B: Patient has history of documented sleep apnea, and HAS received any narcotic , sedative or anesthesia administration during this stay Category 2: Patient has SUSPECTED Obstructive Sleep Apnea, and HAS received any narcotic , sedative or anesthesia administration during this stay. Category 3: Patient has SUSPECTED Obstructive Sleep Apnea and HAS NOT received narcotic, sedative or anesthesia administration during this stay. Category 4: Outpatient in Procedural Areas with known sleep apnea or who screen positive for High Risk via the STOP/BANG questionnaire. Exam Exam Vital Signs Vital Signs Date Time Temp Pulse Resp B/P Pulse Ox O2 Delivery O2 Flow Rate FiO2 12/01/16 14:05 36.7 122 159/81 99 Nasal Cannula 2.00 12/01/16 10:28 108 12/01/16 10:23 36.7 98 157/78 93 Nasal Cannula 2.00 12/01/16 09:26 Supplement Oxygen 12/01/16 06:46 106 161/87 General Appearance: Alert, Oriented X3, Cooperative, Other (somnulnet, arouses , answers appropriately) HEENT/AIRWAY: MP 2 Lungs: Clear to Auscultation Heart: Exam Unremarkable Meds/Labs/Diagnostics Admission Meds Current Medications Cyanocobalamin (Vitamin B12) 1,000 mcg DAILY PO Last administered on 12/01/16 08:37; Start 12/01/16 at 08:30 Lisinopril (Zestril) 40 mg DAILY PO Last administered on 12/01/16 08:37; Start 12/01/16 at 08:30 Melatonin (Melatonin) 3 mg HS PO Last administered on 11/30/16 21:08; Start at 21:00 Multivitamins/ Minerals Therapeutic (Thera Vitamins w/Mineral) 1 tablet DAILY PO Last administered on 12/01/16 08:37; Start 12/01/16 at 08:30 Atorvastatin Calcium (Lipitor) 5 mg HS PO Last administered on 11/30/16 21:08 ; Start 11/30/16 at 21:00 Bedside Blood Glucose: 157 Labs Test 11/27/16 18:56 11/27/16 21:20 11/28/16 00:30 11/28/16 09:55 Hold Purple Top Tube Received (Received) Hold Blue Top Tube Received (Received) Hold [place] Top Tube Received (Received) Urine Color Yellow (YELLOW) Urine Appearance Clear (CLEAR,HAZY) Urine pH 5.0 (5.0-8.0) Urine Specific [place] 1.025 (1.003-1.035) Urine Protein 30mg/dL (NEG,TRACE) Urine Glucose (UA) 500mg/dL (NEGATIVE) Urine Ketones Tracemg/dL (NEGATIVE) Urine Occult Blood Negative (NEGATIVE) Urine Nitrite Negative (NEGATIVE) Urine Bilirubin Negative (NEGATIVE) Urine Urobilinogen Normalmg/dL (NORMAL) Urine Leukocyte Esterase Negative (NEGATIVE) Urine RBC 0-2/hpf (0-2) Urine WBC 6-10/hpf (0-5) Urine Epithelial Cells Moderate/hpf (NONE-MOD) Urine Crystals None seen (NONE SEEN) Urine Bacteria Few/hpf (NONE-FEW) Urine Hyaline Casts None/lpf (NONE) Urine Granular Casts None seen (NONE SEEN) Urine Waxy Casts None seen (NONE SEEN) Urine Red Blood Cell Casts None seen (NONE SEEN) Urine White Blood Cell Casts None seen (NONE SEEN) Urine Mucus Present (None Seen) Urine Trichomonas None seen (NONE SEEN) Urine Yeast None (NONE SEEN) Urinalysis Comment None Urine Culture Reflexed Indicated Lactic Acid Level 1.5mmol/L (0.4-2.0) Phosphorus Level 2.1mg/dL (2.5-4.9) Iron Level 112ug/dL (35-150) Total Iron Binding Capacity 176ug/dL (250-450) Percent Iron Saturation 64%sat (15-50) Unsaturated Iron Binding 64.1ug/dL Ferritin 583ng/mL (30-400) Vitamin B12 Level 798pg/mL (211-946) Folate 13.7ng/mL (>3.0) Test 11/28/16 17:10 11/29/16 05:45 11/30/16 04:45 11/30/16 08:03 Reticulocyte Count,Calculated 0.4% (0.6-2.6) Myelocytes % 1% (0-0) Neutrophils (%) (Auto) 40% (40-74) Lymphocytes (%) (Auto) 39% (14-46) Monocytes (%) (Auto) 8% (4-12) Eosinophils (%) (Auto) 0% (0-5) Basophils (%) (Auto) 0% (0-3) Band Neutrophils % 12% (1-5) Metamyelocytes % 1% (0-0) Sodium Level 142mEq/L (134-144) Potassium Level 4.0mEq/L (3.5-5.2) Chloride Level 108mEq/L (97-108) Carbon Dioxide Level 18mmol/L (18-29) Blood Urea Nitrogen 14mg/dL (8-27) Creatinine 0.96mg/dL (0.76-1.27) Estimat Glomerular Filtration Rate 80mL/min (>59) Glucose Level 146mg/dL (60-99) Hemoglobin A1c 9.6% (4.8-5.6) Calcium Level 8.0mg/dL (8.5-10.1) Magnesium Level 1.9mg/dL (1.6-2.6) Total Bilirubin 0.4mg/dL (0.0-1.2) Aspartate Amino Transf (AST/SGOT) 33U/L (0-50) Alanine Aminotransferase (ALT/SGPT) 53U/L (0-44) Alkaline Phosphatase 120U/L (25-160) Troponin T 0.010ug/L (0.0-0.011) Total Protein 5.6g/dL (6.4-8.4) Albumin 3.6g/dL (3.4-5.0) Lipase 38U/L (13-60) Procalcitonin 0.20ng/mL (0.00-0.08) D-Dimer 0.94mg/L FEU (<0.50) Test 12/01/16 08:26 White Blood Count 14.3th/mm3 (3.8-10.1) Red Blood Count 2.64mil/mm3 (4.40-5.80) Hemoglobin 8.6g/dL (13.8-17.2) Hematocrit 26.2% (41.0-50.0) Mean Corpuscular Volume 99.2fL (81-100) Mean Corpuscular Hemoglobin 32.6pg (27.0-35.0) Mean Corpuscular Hemoglobin Concent 32.8% (32.0-37.0) Red Cell Distribution Width 14.2% (12.3-15.4) Platelet Count 81bil/L (150-400) Plan Impression Patient chart reviewed, patient interviewed and anesthestic plan with risks, benefits, and alternatives discussed, and informed consent obtained. ASA Physical Status: ASA3 Severe Disease Anesthetic Plan: MAC Bene/Risks/Altern/Consents: Yes HP Complete Prior to Induction: Yes Ivan Zafar DO Dec 01, 2016 14:27
[2016-12-01] MEDS ORDERED: Bupivacaine-MPF 0.5% W/EPI 30 mL Inj INFILTRATE ONE (15:24)
[2016-12-01] MEDS ORDERED: Lactated Ringer's 1,000 ML IV ONE (15:24)
[2016-12-01] MEDS ORDERED: Lactated Ringer's 1,000 ML IV SCH (15:32)
[2016-12-01] MEDS ORDERED: Lactated Ringer's 500 ML IV PRN (15:32)
[2016-12-01] MEDS ORDERED: Atropine 0.4 mg/mL Inj IVPUSH PRN (15:35)
[2016-12-01] MEDS ORDERED: EPHEDrine Sulfate 50 mg/mL Inj IVPUSH PRN (15:35)
[2016-12-01] MEDS ORDERED: MetoCLOpramide 5 mg/mL 2 mL Inj IVPUSH PRN (15:35)
[2016-12-01] MEDS ORDERED: Dexamethasone 4 mg/mL Inj IVPUSH PRN (15:35)
[2016-12-01] MEDS ORDERED: Ondansetron 2 mg/mL 2 mL Inj IVPUSH PRN (15:35)
[2016-12-01] MEDS ORDERED: Labetalol 5 mg/mL 4 mL Inj IV PRN (15:35)
[2016-12-01] MEDS ORDERED: hydrALAZINE 20 mg/mL Inj IVPUSH PRN (15:35)
[2016-12-01] MEDS ORDERED: HYDROmorphone 1 mg/mL Inj IVPUSH PRN (15:35)
[2016-12-01] MEDS ORDERED: Phenylephrine 10,000 mCg/mL Inj IVPUSH PRN (15:35)
--- NOTE | 2016-12-01 16:00 | OP ---
[address] [address] OPERATIVE REPORT PATIENT: GIO ZARATE : 1935 MR#: [id number] ADMIT: 11/27/2016 JOB ID: [id number] DATE OF SURGERY: SURGEON: Jamir Perez MD. FINISHED GOODS PLANNER: None. ANESTHESIA: Local with sedation. PREOPERATIVE DIAGNOSIS(ES): Left upper arm skin nodule and a submental mass. POSTOPERATIVE DIAGNOSIS(ES): Left upper arm skin nodule and a submental mass. PRINCIPAL PROCEDURE: Excisional biopsy of left upper arm skin nodule and submental mass. INDICATION FOR PROCEDURE: The patient is an 81-year-old male with myelodysplastic syndrome, who has developed a left upper arm skin nodule and also a submental mass for the past 1-2 months. PRINCIPAL FINDING: Successful excision of both lesions. The left upper arm incision measured 2.5 cm in length and the submental incision measured 3.2 cm. PROCEDURE COURSE: The patient was brought to the operating table and was provided with IV sedation. The patient was given SCDs and no antibiotics. A time-out was performed. The patient's submental region and the left upper arm and chest region was then prepped and draped in the usual sterile fashion exposing both lesions. We started with the left upper arm skin nodule. This skin nodule measured approximately 1 x 1.5 cm in dimension. Along the proposed elliptical incisions, local anesthetic was injected. Next, an ellipse of skin as well as the nodule and the subcutaneous component were all excised in continuity and sent to Pathology. The length of the incision now measured 2.5 cm. Hemostasis was verified, dermis was then reapproximated using interrupted 4-0 Vicryl sutures, and then the skin was closed using a running 4-0 nylon suture. This left upper arm incision measured 2.5 cm in length. Next, we turned our attention to the submental subcutaneous mass. Local anesthetic was injected into the proposed transverse incision, and then the skin was incised using the scalpel. There is no skin component of this lesion. It was entirely subcutaneous. The subcutaneous dissection was carried out until we completely excised the submental mass. The length of the submental incision was 3.2 cm. Hemostasis was again verified. Subcutaneous tissue was then reapproximated using 4-0 Vicryl suture and the skin was actually closed using a running subcuticular 4-0 Vicryl suture. Dermabond and Steri-Strips were then placed over the wound. A sterile dressing was then placed over both wounds. By the end of procedure, needle counts and sponge counts were correct. Patient tolerated the procedure well. The patient was then taken back to the recovery room in stable satisfactory condition.
--- NOTE | 2016-12-01 16:51 | NUR ---
Procedure Pt returned at 1630 from biopsy procedure, alert and oriented with IV running. Pt voided after arriving, denies pain or discomfort, family at bedside. Dressings x 2 C/D/I. Will continue to monitor.
[2016-12-01] MEDS ORDERED: Ketorolac 15 mg/mL Inj IVPUSH PRN (17:00)
[2016-12-01] MEDS: Insulin GLARgine 100 Unit/mL Syringe SUBQ SCH (21:23)
[2016-12-02] VITALS (8 sets, daily range): BP systolic 123–167; BP diastolic 66–81; PULSE 83–108; RESP 18–22; O2SAT 95–96
[2016-12-02] MEDS: Heparin 5,000 Unit/mL Inj SUBQ SCH ×3 (00:06→16:30)
--- NOTE | 2016-12-02 05:07 | NUR ---
PT ACTIVITY Pt has remained in bed most of shift. Pt using urinal in bed. Pt has been mostly passive, sleeping in bed. Pt does awaken easily and answers questions appropriately. Dressings to underside of chin and Left upper arm have remained CDI. Continue to monitor. Call light in reach. Bed alarm on. Intentional rounding.
[2016-12-02 06:31] LABS: Mean Corpuscular Hemoglobin 32.6 pg (27.0-35.0)
[2016-12-02] MEDS: Insulin LISPRO 300 Unit/3 mL Inj SUBQ SCH ×4 (07:48→21:14)
--- NOTE | 2016-12-02 08:30 | NUR ---
BASHIR signed. WILLY Grossman
--- NOTE | 2016-12-02 11:11 | NUR ---
Social Work-readiness for discharge: Data:EMR Reviewed. Pt is on day 5 of hospitalization for dehydration per H&P. Pt is not medically stable anticipate 1-2 more days. PT has cleared pt for home ambulating 400ft. SW followed up with pt this morning, pt confirms home no needs. Pt's family to provide transport home at discharge. No anticipated discharge needs. SW will continue to follow if needs arise. Assessment:pt who is independent at baseline. Plan:Pt to discharge home when medically stable via POV. No anticipated discharge needs. SW will continue to follow if needs arise. WILLY Grossman
--- NOTE | 2016-12-02 12:50 | PCM.PNMED ---
Subjective Date of Service Dec 02, 2016 Subjective Patient continues to demonstrate steady improvement though not yet back to his baseline. Continues to endorse global weakness, but overall feels he is improving. He has first bowel movement within 5 days. Denies any fever chills or sweats. He has not endorsed any lightheadedness when rising, continues to utilize walker for stability. Exam Vital Signs Vital Sign - Last Date Time Temp Pulse Resp B/P Pulse Ox O2 Delivery O2 Flow Rate FiO2 12/02/16 09:10 36.8 97 22 158/73 95 Nasal Cannula 1.00 Intake and Output 12/01/16 12/01/16 12/02/16 Cumulative From/Thru 15:00 23:00 07:00 11/27/16 18:38 - 12/02/16 06:04 Intake Total 450 ml 200 ml 9681 ml Output Total 500 ml 500 ml 6200 ml Balance -50 ml -300 ml 3481 ml Intake Oral 0 ml 200 ml 3852 ml IV Total 450 ml 5829 ml Output Urine Total 500 ml 500 ml 6200 ml # Bowel Movements 4 General: Alert, Oriented X3, Cooperative, No Acute Distress Mouth: Mucous Membr Moist/[place] Chest & Lungs: Clear to auscultation & percussion Cardiovascular: Regular Rate/Rhythm, No Murmurs/Rubs/Gallops Skin: Other (incisional sites are dressed with clean dry dressing) Neurological: Grossly Neurologically Intact IVs and Medications Medications Reviewed: Medications were reviewed in detail Lab and Diagnostics Result Diagram: 12/02/1617 12/02/16616 Microbiology C. difficile toxin assay is negative. Blood cultures are pending. Urine cultures are pending X-Rays, CTs and MRIs PROCEDURE: X-RAY CHEST ONE VIEW, PORTABLE ([id number]) INDICATIONS: weakness, question of sepsis TECHNIQUE: One view of the chest was acquired. COMPARISON: [facility], , CHEST 1VW (PORTABLE), 04/24/2009, 14: 54. FINDINGS: Surgical changes and devices: None. Lungs and pleura: No pleural effusions or pneumothorax. Lungs are clear. Mediastinum: Mediastinal contours appear normal. Heart size is normal. Bones and chest wall: No suspicious bony lesions. Overlying soft tissues appear unremarkable. IMPRESSION: Negative chest. Dictated by: Jackson Croft M.D. on 11/27/2016 at 19:04 Approved by: Jackson Croft M.D. on 11/27/2016 at 19:05 Assessment & Plan Brandon Velasco is a 81 year old male with Diabetes mellitus type II, hypertension, hyperlipidemia, recent pancreatitis, and myelodysplastic syndrome who presented to [facility] emergency department via EMS complaining of fatigue 1. Acute Fatigue and weakness due to Hypovolemia. Present on admission This seems to be resolving but as per history from both patient, and more emphatically , she has not returned to his baseline from even a couple of weeks prior. - Patient did not need a blood transfusion, he is scheduled to see Dr. Rosen on 12/03/2016 as an outpatient. 2 Diarrhea, Acute. Present on admission This has resolved, patient had been constipated over the last couple of days but this too resolved. Bowel function is normal. . 3 Lactic acidosis. Present on admission This has resolved. 4 Chronic pancreatitis with recent flare. - Hospitalized 11/16/16 to 11/17/16 for acute pancreatitis and lipase was [address] scan showed mild pancreatitis. Etiology uncertain. - Lipase elevated at 118 could represent early pancreatitis. No signs of recurrence. - Continue to monitor but consider repeating CT scan to rule out complications such as abscess or pseudocysts 5 Diabetes mellitus type II - We will continue Lantus 18 units at bedtime - Hold home metformin for now - Continue medium correction lispro algorithm - A1c is 9.6. 6 Hypertension, chronic. - Continue amlodipine 10 mg, lisinopril 40 mg once daily and metoprolol tartrate 12.5 mg BID 7 Hyperlipidemia, chronic. - We will continue Atorvastatin 40 mg once daily at bedtime 8. Myelodysplastic syndrome, chronic. - Follows with oncology, not currently actively being treated and stable - Chronic stable anemia and stable thrombocytopenia - The hemoglobin has remained stable. - With the suddenly growing skin lesion on the left arm and the left neck soft tissue lesion a lymphoma process is suspected. He could certainly have some other neoplasm. - Surgery has conducted biopsies pathology report is still pending. 9. Severe costochondritis with difficult to control chest pain. - Cardiac workup was negative with normal EKG and normal troponin - Chest x-ray and chest CT scan failed to reveal source of patient's pain - Pain was reproduced with palpation of the chest consistent with costochondritis - Continue IV Toradol and oral Flexeril with morphine when necessary - The d-dimer was up a little bit and so venous Dopplers were done of the legs which were normal. Anticipate discharge in next 1-2 days with improved strength and stable H&H. Pain Evaluation: Adequate Pain Control VTE Prophylaxis: Sub-Q Heparin (Unfractionated) Resuscitation Status: CPR: Attempt Resuscitation Morgan Ramirez DO Dec 02, 2016 12:50
--- NOTE | 2016-12-02 13:53 | PCM.PNSURG ---
Subjective Visit Information: Reason for Visit Dehydration,Diarrhea,Nausea,Weakness Surgery/Surgery Date Post-Op Day # Date of Admission: Nov 27, 2016 at 23:07 Hospital Day # Subjective: denies significant discomfort associated with the biopsies Objective Objective Awake in bed Family in room Steristrips and dressing on chin and L upper arm intact Vital Sign- Last 8 Hours Date Time Temp Pulse Resp B/P Pulse Ox O2 Delivery O2 Flow Rate FiO2 12/02/16 09:10 36.8 97 22 158/73 95 Nasal Cannula 1.00 12/02/16 08:41 Supplement Oxygen Intake and Output- Last 8 Hour 12/02/16 Cumulative From/Thru 07:00 11/27/16 18:38 - 12/02/16 06:04 Intake Total 200 ml 9681 ml Output Total 500 ml 6200 ml Balance -300 ml 3481 ml Intake Oral 200 ml 3852 ml IV Total 5829 ml Output Urine Total 500 ml 6200 ml # Bowel Movements 4 Result Diagram: 12/02/16 0617 12/02/16 0617 Assessment & Plan Impression POD #1 s/p submental mass and L upper arm skin lesion excisional biopsy Thrombocytopenia Problems: Plan Await path report next week Wound check Will need L upper arm suture removal once it's healed. ? consider stopping the SQ heparin ? Resuscitation Status: CPR: Attempt Resuscitation Jamir Perez MD Dec 02, 2016 13:53
[2016-12-02] MEDS: Fluticasone 0.05% 15 Spray/2 Gm 16 Gm Nasal Spray NASAL SCH ×2 (15:51→19:26)
--- NOTE | 2016-12-02 16:37 | NUR ---
Meds Pt's heparin withheld r/t Plt MD Flora notified and agrees. Will continue to monitor.
--- NOTE | 2016-12-02 18:39 | NUR ---
Congestion Pt c/o of stuffy nose, "hard to breath out of my nose." Notified MD, received order for nasal spray. Pt currently resting comfortably in bed with call light within reach, bed low and locked, intentional rounding.
[2016-12-02] MEDS: Insulin GLARgine 100 Unit/mL Syringe SUBQ SCH (21:14)
[2016-12-03] MEDS: Heparin 5,000 Unit/mL Inj SUBQ SCH ×2 (00:25→07:53)
[2016-12-03 00:32] VITALS: BP 148/109; PULSE 85; RESP 20; O2SAT 96
[2016-12-03 03:57] VITALS: BP 144/74; PULSE 90; RESP 20; O2SAT 96
--- NOTE | 2016-12-03 06:06 | NUR ---
Febrile, Weakness: Medicated for a temp on 37.8 C. last evening, effective. Has remained afebrile the remainder of the night. States feeling tired, was able to sleep several hours through the night. Blood sugar 370 at HS, medicated, decreased to 177 by ~0400. Cooperative with care, personal alarm on for safety.
[2016-12-03 07:07] LABS: BASOPHILS % (AUTO) 0 % (0-3); EOSINOPHILS % (AUTO) 0 % (0-5); MONOCYTES % (AUTO) 6.4 % (4-12); Mean Corpuscular Hemoglobin 32.6 pg (27.0-35.0); Mean Corpuscular Volume 99.1 fL (81-100); NEUTROPHILS % (AUTO) 45.7 % (40-74); Platelet Count 52 bil/L (150-400)
[2016-12-03] MEDS: Insulin LISPRO 300 Unit/3 mL Inj SUBQ SCH ×2 (08:02→11:36)
[2016-12-03] MEDS: Fluticasone 0.05% 15 Spray/2 Gm 16 Gm Nasal Spray NASAL SCH (08:03)
--- NOTE | 2016-12-03 10:31 | PCM.PNSURG ---
Subjective Date of Service: Dec 03, 2016 Date of Service: Dec 03, 2016 Visit Information: Reason for Visit Dehydration,Diarrhea,Nausea,Weakness Surgery/Surgery Date Excisional biopsy of left upper arm skin nodule and submental mass 12/01/16 Post-Op Day # 2 Date of Admission: Nov 27, 2016 at 23:07 Hospital Day # 7 Subjective: Patient reports feeling well this morning. He has some soreness in his submental incision. He was mildly febrile to 37.8 yesterday evening which was treated well with Tylenol and reports no fever or chills this morning. He is not having any nausea or vomiting. His and [id number] are present during her visit who both feel like he has improved greatly since yesterday. Postop General: No Shortness of Breath, No Chest Pain Gastrointestinal: Tolerating Oral Feedings Pain Management: PO (Tylenol), IV Push (morphine) Neurological: Weakness Postop Activity: Ambulate with Assist Objective Vital Sign- Last 8 Hours Date Time Temp Pulse Resp B/P Pulse Ox O2 Delivery O2 Flow Rate FiO2 12/03/16 03:57 36.4 90 20 144/74 96 Nasal Cannula 2.00 12/03/16 03:42 Supplement Oxygen 12/03/16 00:32 36.6 85 20 148/109 96 Nasal Cannula 2.00 Intake and Output- Last 8 Hour 12/03/16 Cumulative From/Thru 07:00 11/27/16 18:38 - 12/03/16 06:23 Intake Total 150 ml 53375 ml Output Total 450 ml 6900 ml Balance -300 ml 3311 ml Intake Oral 150 ml 4382 ml IV Total 5829 ml Output Urine Total 450 ml 6900 ml # Voids 1 # Bowel Movements 2 8 General: Alert, Oriented X3 Neck: Supple Lungs: Clear to Auscultation, Normal Air Movement Heart: Regular Rate/Rhythm, Murmur Abdomen: Soft, Non-tender, Normoactive bowel tones SURGICAL WOUND : Wound Location/Description Left submental excision site with mild drainage along the incision line and mild erythema adjacent to incision less than 1 cm consistent with appropriate healing. Steri-Strips were following, dressing changed. Left arm excision site without drainage, sutures in place. No erythema, well approximated, healing well. Dressing changed. Extremities: Warm Neuro: Grossly Neurologically Intact Catheters: None Result Diagram: 12/03/16 0645 12/03/16644 Lab & Micro Results: WBC down to 6.9 today, hemoglobin and hematocrit stable at 7.5 and 22.5. Platelets 52. Blood glucose 169 this morning. Assessment & Plan Impression The patient is an 81-year-old male with myelodysplastic syndrome, postop day 2 status post left upper arm skin excision and also submental mass removal. Doing well postoperatively, he remains thrombocytopenic likely secondary to his myelodysplastic disorder. Problems: Plan 1. Wounds appear to be healing well. Dressings changed today. 2. Patient will need left upper arm suture removal once healed. 3. Await pathology report next week. 4. Subcutaneous heparin being held due to thrombocytopenia. Thank you for this interesting consult. We will continue to follow while patient is in the hospital. When medical team feels it is appropriate patient is okay to discharge from a surgical perspective with follow-up for suture removal December 07 or by surgical PA in the outpatient clinic. Pain Management: Per hospitalist team VTE Prophylaxis: SCDs Resuscitation Status: CPR: Attempt Resuscitation copies to: Jamir Perez MD, Erika R DO Dec 03, 2016 07:54
--- NOTE | 2016-12-03 11:54 | NUR ---
Blood sugar BS = 408 prior to lunch, Pt report consuming brown sugar in AM meal. This RN spoke with pt and spouse regarding BS control and diet. Spouse reports does not normally use any sugar in food at home, does use Splenda to wolfgang. This RN educated pt and family regarding increased BS when ill. Encouraged to continue to monitor diet and sugar control. Pt and family verbalize understanding. Call light in reach, will continue to monitor.
--- NOTE | 2016-12-03 13:30 | PCM.DC.MED ---
Discharge Summary Date of Service Dec 03, 2016 Dates of Hospitalization Date of Hospital Admission Nov 27, 2016 at 23:07 Date of Discharge: Dec 03, 2016 Providers: Admitting Physician: Leon Pham MD Primary Care Physician: Enrique Macedo MD Attending Physician: Leon Pham MD Diagnosis at Time of Discharge Diagnosis at Time of Discharge Acute Fatigue and weakness due to Hypovolemia. Present on admission Myelodysplastic syndrome, chronic. Diarrhea, Acute. Present on admission Consultations General surgery, Dr. Perez. Procedures XRay, CTs & MRIs PROCEDURE: X-RAY CHEST ONE VIEW, PORTABLE ([id number]) INDICATIONS: weakness, question of sepsis TECHNIQUE: One view of the chest was acquired. COMPARISON: [facility], , CHEST 1VW (PORTABLE), 04/24/2009, 14: 54. FINDINGS: Surgical changes and devices: None. Lungs and pleura: No pleural effusions or pneumothorax. Lungs are clear. Mediastinum: Mediastinal contours appear normal. Heart size is normal. Bones and chest wall: No suspicious bony lesions. Overlying soft tissues appear unremarkable. IMPRESSION: Negative chest. Dictated by: Jacksno Croft M.D. on 11/27/2016 at 19:04 Approved by: Jackson Croft M.D. on 11/27/2016 at 19:05 Brief History As per admission history of present illness by admitting physician , "Brandon Velasco is a 81 year old male with Diabetes mellitus type II, hypertension, hyperlipidemia, recent pancreatitis, and myelodysplastic syndrome who presented to [facility] emergency department via EMS complaining of fatigue prior to arrival Patient reported he has been feeling fatigue and weak. Associated symptoms includes nausea (without vomiting), dehydration (not been able to drink much due to the nausea) and diarrhea (patient reported onset coincide with starting Augmentin recently for Enteroccocus UTI. Denies any fever or chills. Patient had episode of Pancreatitis a few weakness ago and he still feels its ongoing. Admitted 11/16-11/17. Etiology of pancreatitis was not determined but no evidence of gallstone and triglyceride levels normal. He denies heavy Alcohol intake. Pt is currently taking Augmentin twice a day for enterococcus UTI. Pt was admitted to [facility] on 11/20/16 for observation after presenting to the ED complaining of upper chest pain. He was discharged on 11/22/16 with diagnosis of enterococcus UTI and Stress test ruled out Cardiac cause for pain. Case discussed with Dr Frias, evidence of orthostasis and severe dehydration. Failed road test in the ED and will be admitted" Hospital Course 1. Acute Fatigue and weakness due to Hypovolemia. Present on admission This seems to have resolved, oral intake has improved he is no longer dependent on intravenous fluids. Patient energy levels greatly improved, physical therapy and is clear from discharge, fatigue essentially resolved. 2 Diarrhea, Acute. Present on admission This has resolved, patient had been constipated over the last couple of days but this too resolved. Bowel function is normal. . 3 Lactic acidosis. Present on admission This has resolved. 4 Chronic pancreatitis with recent flare. - Hospitalized 11/16/16 to 11/17/16 for acute pancreatitis and lipase was [address] scan showed mild pancreatitis. Etiology uncertain. - Lipase elevated at 118 could represent early pancreatitis. No signs of recurrence. - Continued to monitor but resolution of symptoms no further evaluation was undertaken during this hospitalization. 5 Diabetes mellitus type II Hemoglobin A1c of 9.6 demonstrates poor control, patient was continued on home as a time of discharge with recommendation to consider further management and outpatient setting with primary care physician. 6 Hypertension, chronic. - Continued amlodipine 10 mg, lisinopril 40 mg once daily and metoprolol tartrate 12.5 mg BID 7 Hyperlipidemia, chronic. - We continued Atorvastatin 40 mg once daily at bedtime 8. Myelodysplastic syndrome, chronic. - Follows with oncology, not currently actively being treated and stable - Chronic stable anemia and thrombocytopenia is essentially stable bone M returning to her hospitalization this is most likely related to hemodilution effect - With the suddenly growing skin lesion on the left arm and the left neck soft tissue lesion a lymphoma process is suspected. He could certainly have some other neoplasm. Surgery has been consulted conducted biopsies of both lesion of neck and hand. - There recommending follow-up on the November for suture removal in outpatient surgery clinic. - Discussed patient's case with his oncologist Dr. Rosen, will reschedule follow- up appointment for 1 week on discharge to allow time for biopsy pathology to be reviewed and make for more productive patient encounter. 9. Severe costochondritis with difficult to control chest pain. - Resolved her hospitalization no evidence of cardiopulmonary process. Exam Vital Signs (Last) Date Time Temp Pulse Resp B/P Pulse Ox O2 Delivery O2 Flow Rate FiO2 12/03/16 08:00 Supplement Oxygen 12/03/16 03:57 36.4 90 20 144/74 96 2.00 Exam General: Alert, Oriented X3, Cooperative, No Acute Distress Mouth: Mucous Membr Moist/[place] Chest & Lungs: Clear to auscultation & percussion Cardiovascular: Regular Rate/Rhythm, No Murmurs/Rubs/Gallops Skin: Incisional sites are dressed with clean dry dressing on both neck and hand. Neurological: Grossly Neurologically Intact Test 11/27/16 18:56 11/27/16 21:20 11/28/16 00:30 11/28/16 09:55 Hold Purple Top Tube Received (Received) Hold Blue Top Tube Received (Received) Hold [place] Top Tube Received (Received) Urine Color Yellow (YELLOW) Urine Appearance Clear (CLEAR,HAZY) Urine pH 5.0 (5.0-8.0) Urine Specific [place] 1.025 (1.003-1.035) Urine Protein 30mg/dL (NEG,TRACE) Urine Glucose (UA) 500mg/dL (NEGATIVE) Urine Ketones Tracemg/dL (NEGATIVE) Urine Occult Blood Negative (NEGATIVE) Urine Nitrite Negative (NEGATIVE) Urine Bilirubin Negative (NEGATIVE) Urine Urobilinogen Normalmg/dL (NORMAL) Urine Leukocyte Esterase Negative (NEGATIVE) Urine RBC 0-2/hpf (0-2) Urine WBC 6-10/hpf (0-5) Urine Epithelial Cells Moderate/hpf (NONE-MOD) Urine Crystals None seen (NONE SEEN) Urine Bacteria Few/hpf (NONE-FEW) Urine Hyaline Casts None/lpf (NONE) Urine Granular Casts None seen (NONE SEEN) Urine Waxy Casts None seen (NONE SEEN) Urine Red Blood Cell Casts None seen (NONE SEEN) Urine White Blood Cell Casts None seen (NONE SEEN) Urine Mucus Present (None Seen) Urine Trichomonas None seen (NONE SEEN) Urine Yeast None (NONE SEEN) Urinalysis Comment None Urine Culture Reflexed Indicated Lactic Acid Level 1.5mmol/L (0.4-2.0) Phosphorus Level 2.1mg/dL (2.5-4.9) Iron Level 112ug/dL (35-150) Total Iron Binding Capacity 176ug/dL (250-450) Percent Iron Saturation 64%sat (15-50) Unsaturated Iron Binding 64.1ug/dL Ferritin 583ng/mL (30-400) Vitamin B12 Level 798pg/mL (211-946) Folate 13.7ng/mL (>3.0) Test 11/28/16 17:10 11/29/16 05:45 11/30/16 04:45 11/30/16 08:03 Reticulocyte Count,Calculated 0.4% (0.6-2.6) Myelocytes % 1% (0-0) Band Neutrophils % 12% (1-5) Metamyelocytes % 1% (0-0) Hemoglobin A1c 9.6% (4.8-5.6) Magnesium Level 1.9mg/dL (1.6-2.6) Total Bilirubin 0.4mg/dL (0.0-1.2) Aspartate Amino Transf (AST/SGOT) 33U/L (0-50) Alanine Aminotransferase (ALT/SGPT) 53U/L (0-44) Alkaline Phosphatase 120U/L (25-160) Troponin T 0.010ug/L (0.0-0.011) Total Protein 5.6g/dL (6.4-8.4) Albumin 3.6g/dL (3.4-5.0) Lipase 38U/L (13-60) Procalcitonin 0.20ng/mL (0.00-0.08) D-Dimer 0.94mg/L FEU (<0.50) Test 12/03/16 06:45 White Blood Count 6.9th/mm3 (3.8-10.1) Red Blood Count 2.30mil/mm3 (4.40-5.80) Hemoglobin 7.5g/dL (13.8-17.2) Hematocrit 22.8% (41.0-50.0) Mean Corpuscular Volume 99.1fL (81-100) Mean Corpuscular Hemoglobin 32.6pg (27.0-35.0) Mean Corpuscular Hemoglobin Concent 32.9% (32.0-37.0) Red Cell Distribution Width 14.1% (12.3-15.4) Platelet Count 52bil/L (150-400) Neutrophils (%) (Auto) 45.7% (40-74) Lymphocytes (%) (Auto) 45.7% (14-46) Monocytes (%) (Auto) 6.4% (4-12) Eosinophils (%) (Auto) 0% (0-5) Basophils (%) (Auto) 0% (0-3) Sodium Level 139mEq/L (134-144) Potassium Level 3.9mEq/L (3.5-5.2) Chloride Level 104mEq/L (97-108) Carbon Dioxide Level 18mmol/L (18-29) Blood Urea Nitrogen 27mg/dL (8-27) Creatinine 1.02mg/dL (0.76-1.27) Estimat Glomerular Filtration Rate 74mL/min (>59) Glucose Level 196mg/dL (60-99) Calcium Level 8.8mg/dL (8.5-10.1) Microbiology Results C. difficile toxin assay is negative. Blood cultures are pending. Urine cultures are pending Discharge Medications Discharge Medications Aspirin (Aspirin) 81 Mg Tablet 81 MG PO DAILY (Reported) Cyanocobalamin (Vitamin B12) 500 Mcg Tablet 1,000 MCG PO DAILY (Reported) Insulin Glargine (Lantus U100 Insulin Vial) 100 Unit/Ml Vial 18 UNIT SUBQ HS ( Reported) Lisinopril (Lisinopril) 40 Mg Tablet 40 MG PO DAILY (Reported) Melatonin/Pyridoxine (Melatonin 3 mg Tablet) 1 Each Tablet 1 EACH PO DAILY ( Reported) Metformin (Glucophage) 1,000 Mg Tablet 1,000 MG PO BIDAC (Reported) Multivitamin (Multi Vitamin Daily) 1 Each Tablet 1 EACH PO DAILY (Reported) Simvastatin (Zocor) 10 Mg Tablet 10 MG PO HS (Reported) As needed Nitroglycerin SL (Nitrostat) 0.4 Mg Tab.subl 0.4 MG SL Q5MIN PRN PRN For Chest Pain Take one every 5 minutes for a maximum of 3 times for chest pain Prescribed by: HUSSEIN CLAIRE DO Followup Plan Disposition: Patient discharged home with Discharge Diet: No restrictions Discharge Activity: No restrictions Follow-up Provider: Kevin Rosen DO Follow-up with PCP in: 1 week Provider: Jamir Perez MD Follow-up in: 1 week Time spent 45 minutes copies to: Enrique Macedo MD; Kevin Rosen Benjamin P DO Dec 03, 2016 13:30
--- NOTE | 2016-12-03 13:36 | PCM.DIMED ---
Discharge Instructions Date of Service Dec 03, 2016 Dates of Hospitalization Nov 27, 2016 at 23:07 Discharge Diagnosis Discharge Diagnosis Acute Fatigue and weakness due to Hypovolemia. Present on admission Myelodysplastic syndrome, chronic. Diarrhea, Acute. Present on admission Diet Discharge Diet: No restrictions Activity Discharge Activity: No restrictions Call your provider Call your provider for: Shortness of breath, Chest pain Patient Instructions Follow-up Provider: Kevin Rosen DO Follow-up with PCP in: 1 week Provider: Jamir Perez MD Follow-up in: 1 week Morgan Ramirez DO Dec 03, 2016 13:36
--- NOTE | 2016-12-03 13:39 | NUR ---
Social Work-discharge: Data:EMR Reviewed. Pt is on day 6 of hospitalization for dehydration per H&P. Pt is medically stable for discharge. PT has seen pt again today and cleared pt for home no needs, pt ambulating 200ft. Pt's family and pt updated and agreeable to plan. Family to provide transport home. No other SW needs identified. All updated and agreeable to plan. Assessment:Pt who is independent at baseline. Plan:Pt to discharge home today via POV. No other SW needs identified. All updated and agreeable to plan. WILLY Grossman
[2016-12-03 14:12] VITALS: BP 134/72; PULSE 102; RESP 18; O2SAT 98
--- NOTE | 2016-12-03 15:43 | NUR ---
Discharge Pt discharged at this time, VSS, no complains of increased pain, nausea, vomiting or diarrhea. All belongings gathered and returned to pt. No new scripts given at time of discharge. IV D/Cd intact. Discharge packet printed and reviewed with pt and spouse. Pt to be driven home in private vehicle driven by spouse. Pt and spouse awaiting family in the room. Addendum: 12/03/16 at 1552 by ROMEO FLORES RN Pt taken off [facility] by LUIS ALBERTO in wheelchair, to be driven home in private vehicle driven by son.
== END 2016-12-03 15:50 | disposition home or self-care (01) | DRG 206 ==
LOC: EDBD 18:38 → SED 18:38 → MPC 23:07
PROVIDERS: ADMIT Hospitalist; ATTEND Hospitalist
PROC: 0JBF0ZX Excision of Left Upper Arm Subcutaneous Tissue and Fascia, Open Approach, Diagnostic (ICD-10-PCS; 2016-12-01)
PROC: 0JB40ZX Excision of Right Neck Subcutaneous Tissue and Fascia, Open Approach, Diagnostic (ICD-10-PCS; principal; 2016-12-01 14:30)
DX: M94.0 Chondrocostal junction syndrome [Tietze] (principal); K86.1 Other chronic pancreatitis; E87.2 Acidosis; N39.0 Urinary tract infection, site not specified; E86.0 Dehydration; D46.9 Myelodysplastic syndrome, unspecified; B95.2 Enterococcus as the cause of diseases classified elsewhere; E11.9 Type 2 diabetes mellitus without complications; Z79.84 Long term (current) use of oral hypoglycemic drugs; I10 Essential (primary) hypertension; Z87.891 Personal history of nicotine dependence; Z79.4 Long term (current) use of insulin; E78.5 Hyperlipidemia, unspecified; R22.32 Localized swelling, mass and lump, left upper limb; R22.1 Localized swelling, mass and lump, neck; R19.7 Diarrhea, unspecified

== ENCOUNTER 2016-12-06 13:50 | Inpatient (IN) | payer MEDICARE, OTHER ==
[~2016-12-06] VITALS: Ht 177.8 cm; Wt 79.1 kg
[2016-12-06] MEDS ORDERED: MELA1TAB28 PO (13:54)
[2016-12-06 14:04] VITALS: BP 154/66; PULSE 93; RESP 17; O2SAT 97
[2016-12-06 14:30] LABS: Mean Corpuscular Hemoglobin 32.5 pg (27.0-35.0); Mean Corpuscular Volume 99 fL (81-100); Platelet Count 75 bil/L (150-400)
[2016-12-06 14:31] LABS: BASOPHILS % (AUTO) 0 % (0-3); EOSINOPHILS % (AUTO) 3 % (0-5); MONOCYTES % (AUTO) 7 % (4-12); NEUTROPHILS % (AUTO) 40 % (40-74)
--- NOTE | 2016-12-06 14:32 | ED.REPORT ---
HPI-General Illness Date of Service Dec 06, 2016 ED Provider: Dane Dill MD 81 y/o male with a hx of pancreatitis, CAD, DM, myelodysplastic syndrome, and HTN presents to the ED via EMS due to weakness, onset 4 days ago that has been worsening gradually. Associated sx include extreme fatigue, dizziness, lack of appetite and recent weight loss. As per the , the pt often collapses due to weakness and has been experiencing diaphoresis. He denies vomiting, chills, dysuria and chest pain. The pt also reports hyperglycemia.This morning, his glucose level was 361. His last dose of Insulin was last night, 25 units of Lantus. The pt was seen at the ED last week and was admitted for diarrhea, nausea and dehydration. The pt also recently had a lump removed from his neck and left upper arm two days ago. He has also completed his Augmentin course for a recent UTI. Nursing Notes Stated Complaint: HIGH BLOOD SUGAR Chief Complaint: General Complaint Nursing Notes Reviewed: Yes ([employer] not reconciled) Allergies: Coded Allergies: fentanyl (Verified Adverse Reaction, Intermediate, Nausea, 11/27/16) Scheduled Aspirin (Aspirin) 81 Mg Tablet 81 MG PO DAILY Cyanocobalamin (Vitamin B12) 500 Mcg Tablet 1,000 MCG PO DAILY Insulin Glargine (Lantus U100 Insulin Vial) 100 Unit/Ml Vial 18 UNIT SUBQ HS Lisinopril (Lisinopril) 40 Mg Tablet 40 MG PO DAILY Melatonin/Pyridoxine HCl (B6) (Melatonin 3 mg Tablet) 1 Each Tablet 1 EACH PO DAILY Metformin (Glucophage) 1,000 Mg Tablet 1,000 MG PO BIDAC Multivitamin (Multi Vitamin Daily) 1 Each Tablet 1 EACH PO DAILY Simvastatin (Zocor) 10 Mg Tablet 10 MG PO HS Scheduled PRN Nitroglycerin SL (Nitrostat) 0.4 Mg Tab.subl 0.4 MG SL Q5MIN PRN PRN For Chest Pain Take one every 5 minutes for a maximum of 3 times for chest pain General Time Seen by MD: 14:29 Chief Complaint Weakness Hx Obtained From: Patient, Spouse Arrived By: Walk-in Sudden in Onset?: No Onset Occurred: 4 days ago Symptom Duration: Since onset Severity: Current: No pain currently Severity: Maximum: No pain Recent Healthcare: Recent doctor visit Similar Sx Previous: Yes Past Medical History Past Medical History Notes: Admitted November 27- for acute fatigue and weakness due to hypovolemia, myelodysplastic syndrome, and diarrhea Past Medical History Myelodysplastic syndrome Hypercholesterolemia Arthritis Pancreatitis (most recent flare for acute pancreatitis was November 16 through November 17, etiology unclear) h/o Enterococcuss UTI Reports: Coronary artery disease, Diabetes mellitus, Hypertension Past Surgical History Bilateral knee arthroscopy. Reports: Tonsillectomy Smoking History Former Smoker Social History Alcohol Use: 1-3 per day Other Social History: Good social support Ambulatory Status Independent Review of Systems Reports: lack of appetite Reports: recent weight loss Full Review of Systems Constitutional: Reports: Fatigue, Denies: Chills Cardiovascular: Denies: Chest pain GI: Denies: Vomiting Male: Denies Dysuria Skin: Reports Diaphoresis Neurologic: Reports: Dizziness, Weakness Complete sys rev & neg: except as marked. Physical Exam Vital Signs Vital Signs Date Time Temp Pulse Resp B/P Pulse Ox O2 Delivery O2 Flow Rate FiO2 12/06/16 14:04 36.5 93 17 154/66 97 Room Air Initial VS: Reviewed, Vital signs normal Head / Eyes: Atraumatic, Normocephalic Extremities: Vascular intact, Neuro intact, No swelling, No tenderness Skin: Warm, Dry, No cyanosis Neurologic: Alert, Oriented, Nonfocal General/Constitutional: Awake, Alert, Cooperative Appearance / Presentation: Positive: Pale Globally weak. Fatigued Neck: Atraumatic, Supple, Full range of motion Surgical site clean, dry and intact. Respiratory / Chest: Atraumatic, Breath sounds NL, Breath sounds = bilat, No respiratory distress, No rales, No rhonchi, No wheezing Cardiovascular: Heart rate NL, Regular rhythm, Heart sounds NL, No gallop, No murmurs, No rubs Heart Rate / Rhythm: Negative: Tachycardia Mild edema in lower extremities Abdomen: Atraumatic, Soft, Non-tender, No guarding, No rebound Upper Extremities Upper Extremity / MS: Atraumatic, Full range of motion, No swelling, Non-tender , No erythema, No deformity, Neurologic intact, Vascular intact Surgical site clean, dry and intact. Interpretation & Diagnostics Lab Results Interpretation Result Diagram: 12/06/16 1422 12/06/16 1422 Test 12/06/16 14:22 White Blood Count 6.4th/mm3 (3.8-10.1) Red Blood Count 2.12mil/mm3 (4.40-5.80) Hemoglobin 6.9g/dL (13.8-17.2) Hematocrit 21.0% (41.0-50.0) Mean Corpuscular Volume 99fL (81-100) Mean Corpuscular Hemoglobin 32.5pg (27.0-35.0) Mean Corpuscular Hemoglobin Concent 32.9% (32.0-37.0) Red Cell Distribution Width 13.9% (12.3-15.4) Platelet Count 75bil/L (150-400) Neutrophils (%) (Auto) 40% (40-74) Lymphocytes (%) (Auto) 50% (14-46) Monocytes (%) (Auto) 7% (4-12) Eosinophils (%) (Auto) 3% (0-5) Basophils (%) (Auto) 0% (0-3) Sodium Level 133mEq/L (134-144) Potassium Level 4.2mEq/L (3.5-5.2) Chloride Level 97mEq/L (97-108) Carbon Dioxide Level 19mmol/L (18-29) Blood Urea Nitrogen 22mg/dL (8-27) Creatinine 1.11mg/dL (0.76-1.27) Estimat Glomerular Filtration Rate 67mL/min (>59) Glucose Level 380mg/dL (60-99) Calcium Level 8.7mg/dL (8.5-10.1) Magnesium Level 1.6mg/dL (1.6-2.6) Total Bilirubin 0.4mg/dL (0.0-1.2) Aspartate Amino Transf (AST/SGOT) 21U/L (0-50) Alanine Aminotransferase (ALT/SGPT) 37U/L (0-44) Alkaline Phosphatase 156U/L (25-160) Troponin T < 0.010ug/L (0.0-0.011) Pro-B-Type Natriuretic Peptide 1163pg/mL (0-486) Total Protein 6.1g/dL (6.4-8.4) Albumin 3.1g/dL (3.4-5.0) Lipase 144U/L (13-60) ECG Interpretation ECG Interpretation: normal sinus rhythm. Rate 95. No frequent PVCs Borderline first degree heart block. Computer reads borderline QT prolongation - over read from complication of PVCs Time: 14:21 Interpreted by: ED physician Re-Eval/Medical Decision Med Decision/Clinical Course This is an 81-year-old male said multiple hospitalizations this month, initially admitted for idiopathic pancreatitis, then developed an enterococcus UTI, then admitted with diarrhea dehydration and was hospitalized for a week. This is all superimposed on a myelodysplastic syndrome, and the patient just recently had biopsied lesions from the neck and left arm. He is discharged on Saturday, but presents today with increasing weakness, near collapsing several times. He is urinating all the time, not eating, is down 10 pounds in recent days, and increasingly weak to the point of the family says they cannot take care of him and wish for him to be hospitalized. He reports anytime he gets up he just feels terrible. He feels weak at rest, but has no additional complaints. He denies fevers or chills. He has noticed that his glucoses have been unusually high in the 300 400 range for the past several days-and this is despite increasing the Lantus from 18 units at bedtime, up to 25 units as of last night. He continues to have some polyuria which is worsened. He denies chest pain, palpitations, leg swelling. Xanthines pale, globally weak-but alert and answering questions appropriate. He is very fatigued. Heart tones normal, lungs clear, avid soft nontender. His surgical incisions of the neck and left arm are intact without signs of infection or complication. At this point this is a patient with diabetes, multiple comorbidities-resents with weight loss, near syncope and collapse, polyuria, elevated glucose, and generalized weakness. Labs are being drawn. Admission is likely, and the care is being turned over to Dr. Ruano at change of shift pending review of labs and reevaluation Venous glasses returned reveals a pH of 7.4, PCO2 35, PO2 of 63, bicarbonate 22 with no evidence of metabolic acidosis or DKA. Source of Hx: Old records Time of Eval: 14:46 Re-Evaluation/Progress Note: Informed the pt and his family that it is highly likely the pt will get admitted. They udnerstand and agree with the plan to admit. All questions answered. Differential Diagnosis: Positive: Diabetes mellitus Counseled Regarding: Diagnosis, Lab results, Need for admission Discharge & Departure Shift Change Sign-Out Patient Care Transferred: Yes Discussed Complaint(s): Yes Laboratory Evaluation: Ordered, not yet done Imaging Studies: Ordered, not yet done Primary Impression: Generalized weakness Additional Impressions: Near syncope Hyperglycemia Myelodysplastic syndrome Disposition: ADMITTED TO HOSPITAL Discharge Condition All VS Reviewed: Yes Referrals: Enrique Macedo MD (PCP) Care Transferred to: Dr. Ruano Care Transferred at: 15:00 Scribe Attestation Portions of this note were transcribed by David Nuñez. I, , personally performed the history, physical exam and medical decision- making;I reviewed and confirmed the accuracy of the information in the transcribed note. Signed by Debbie Saldivar. 12/06/16 14:55 copies to: Enrique Macedo MD, Matthew F MD Dec 06, 2016 14:31 David Nuñez Dec 06, 2016 14:44
[2016-12-06] MEDS ORDERED: Insulin Human REGular-Omnicell 100 Unit/mL SUBQ ONE (14:50)
--- NOTE | 2016-12-06 14:56 | ABG ---
DateTimeAnalyzed 14:46:45 -_ pH ____7.413 - pCO2 ___34.9__ -mmHg pO2 ___63.2__ -mmHg HCO3- ___22.2__ -mmol/L 22.0 26.0 ABE ___-2.2__ -mmol/L tHb ____6.3__ -g/dL O2Hb ___88.8__ -% COHb ____2.6__ -% 1.5 MetHb ____0.4__ -% sO2 ___91.7__ -% Drawn By ____Nurse - Date/Time Notified____ 14:55:00 -_ Notified By rs - Notified Whom Fuentes, Heladio - K+ ____4.1__ -mmol/L tO2 ____8.0__ -Vol%
[2016-12-06 14:57] LABS: TROPONIN T < 0.010 ug/L (0.0-0.011)
[2016-12-06 14:59] LABS: Magnesium 1.6 mg/dL (1.6-2.6)
[2016-12-06 15:36] VITALS: BP 168/85; PULSE 94; RESP 16; O2SAT 97
[2016-12-06 15:39] LABS: APPEARANCE,URINE CLEAR (CLEAR,HAZY); COLOR,URINE YELLOW (YELLOW); OCCULT BLOOD,URINE NEGATIVE (NEGATIVE); UROBILINOGEN,URINE NORMAL (NORMAL)
[2016-12-06 16:29] VITALS: BP 187/88; PULSE 113
[2016-12-06] MEDS ORDERED: AMLO10TA3 PO (17:19)
[2016-12-06] MEDS: 0.9% Sodium Chloride 1,000 ML IV SCH (17:23)
[2016-12-06] MEDS ORDERED: MELA3TAB35 PO (17:31)
[2016-12-06 18:42] VITALS: BP 152/82; PULSE 109; RESP 22; O2SAT 99
--- NOTE | 2016-12-06 18:42 | PCM.HPMED ---
Subjective Date of Service Dec 06, 2016 Primary Provider: Admitting Physician: Primary Care Physician: Enrique Macedo MD Attending Physician: Chief Complaint: Generalized weakness, failure to thrive History of Present Illness: 81 year old male with Diabetes mellitus type II, hypertension, hyperlipidemia, recent pancreatitis, and myelodysplastic syndrome p/w increasing weakness, lightheadedness. This is patient's four admission in this month, Early November, pt was admitted with acute on chronic pancreatitis, etiologies were unknown, no GB stone/no ETOH use noted. pt was supportively treated and d/radha. then Pt was admitted to [facility] on 11/20/16 for observation after presenting to the ED complaining of upper chest pain. He was discharged on 11/22/16. underwent stress test, which was normal. TTE was also unremarkable. During the course pt was diagnosed with enterococcus UTI, pt took Augmentin. Third admission was 11/27 -, admitted with non-infectious diarrhea, acute fatigue and weaknesss, symptoms were controlled with supportive tx, pt was discharged to home. During the admission, pt was found to have Left upper arm skin nodule and a submental mass, which was concerning for lymphoma, biopsy was done on 12/01. Since pt was discharged 3days ago, pt was increasingly weak, almost fainted, appetite was very poor, with intermittent nausea, denied vomiting or abdominal pain. also c/o mild labored breathing, but denied wt gain or leg swelling, chest pain, orthopnea. pt had mild dry cough three days ago but resolved with Mucinex. pt also noted his sugar goes up, increased his lantus from 18 to 20 and to 25 per PCP. but very difficult to control. In ED VS stable, initially [id number] then went up 180s, [id number], afebrile, RR16, 97% on RA. Labs showed worsening anemia, lymphocytosis, mildly elevated lipase, lactate1.1, UA was unremarkable. glc was 380 on cmp. Patient received regular insulin 10 units in the emergency room Review of Systems: Pertinent positives as noted in history of present illness. All other systems were reviewed and are negative Allergies Coded Allergies: fentanyl (Verified Adverse Reaction, Intermediate, RESPIRATORY DEPRESSION , 12/06/16) Home Medications Aspirin 81 mg Vitamin B12 thousand micrograms daily Lantus 18-20 units at bedtime Lisinopril 40 mg daily Melatonin 3 mg daily at bedtime Metformin thousand milligrams twice a day Multivitamin 1 tablet daily Nitroglycerin q5min for chest pain Simvastatin 10mg qhs PMH PMH Diabetes mellitus type II on metformin and insulin Hypertension Hyperlipidemia Pancreatitis Myelodysplastic syndrome not taking any treatment and stable Gastroesophageal reflux disease Prostate enlargement . Surgical History Bilateral knee surgery (arthroscopic) Bilateral cataract removal Tonsillectomy Family History Father side is unknown because his father is estranged Mother had esophageal cancer, maternal grandfather pancreatic cancer, and 3 brothers with prostate cancer Social History Hx Alcohol Use: Yes (Glass of wine a day quit after previous hospitalization) Hx Substance Use: No Hx Tobacco Use: Yes (quit in 1959) Smoking Status: Former Smoker Exam Vital Signs Vital Sign - Last Date Time Temp Pulse Resp B/P Pulse Ox O2 Delivery O2 Flow Rate FiO2 12/06/16 16:29 113 187/88 12/06/16 15:36 16 97 Room Air 12/06/16 14:04 36.5 Exam NAD, comfortably laying down on the bed no JVD, MMM, no LAD RRR, nl s1, s2 no mrg CTAB, no w,c S,ND,NT,normoactive BS+ warm, no edema, pulses 2/2 Lab and Diagnostics Result Diagram: 12/06/16 1422 12/06/16 1422 Assessment & Plan Acute, active generalized weakness, POA, progressively worsening, ddx: worsening MDS or new onset lymphoma, worsening anemia, probable acute on chronic pancreatitis -continue NS 125cc/hr -NPO -will consult with GI, oncology tomorrow AM -awaits biopsy result from mandible/upper arm probable pancreatitis, POA, recurrent within a month, no GB stones/ETOH, could be due to metformin use -will get abd CT with contrast. -given no abdominal pain, monitor w/o narcotics. -trends lipase uncontrolled DM, POA, recent a1c 9.6 up trending, this could represent worsening pancreatic inflammatory conditions, -RISS q6h while NPO, chronic anemia, thrombocytopenia, with MDS, POA, worsened from baseline, -given hgb6.9, will consider transfusion after discussion with Oncology. Chronic, stable Hypertension, hold BP meds for now Hyperlipidemia, hold statin for now Gastroesophageal reflux disease, stable Prostate enlargement, stable, dispo:Patient will be admitted with inpatient status with expectation of inpatient therapy for more than 2 midnights diet:NPO dvt ppx:SCD given thrombocytopenia Full code Time spent 65 minutes Simone Chew MD Dec 06, 2016 17:46
[2016-12-06] MEDS ORDERED: Labetalol 5 mg/mL 4 mL Inj IVPUSH PRN (18:45)
[2016-12-06 20:10] VITALS: BP 159/72; PULSE 100; RESP 16; O2SAT 97
--- NOTE | 2016-12-06 20:21 | DRSVH ---
PROCEDURE: CT ABDOMEN AND PELVIS WITH CONTRAST ([id number]) INDICATIONS: pancreatitis TECHNIQUE: After the administration of oral and intravenous contrast, 5 mm thick sections acquired from the diap hragms to the symphysis. 5 mm thick coronal and sagittal reformats were performed. For radiation do se reduction, the following was used: automated exposure control, adjustment of mA and/or kV accordi ng to patient size. COMPARISON: [facility], CT, CT CHEST W CON, 11/29/2016, 14:47. Abdomen pelvis CT from 01/23 FINDINGS: Image quality: Excellent. ABDOMEN: Lung bases: 3 mm left lower lobe pulmonary nodule stable since at least 2005. Otherwise lung bases ar e clear. Heart size is normal. Prominent pericardial lymph nodes measuring up to 9 mm (se 2 im 15). Solid organs: Mildly contracted but otherwise radiographically normal gallbladder. Enlarged estella hep atis lymph nodes measuring up to 2.3 CM (for example se 2 im 25). Prostatic hypertrophy. Pancreatic c alcifications consistent with previous pancreatitis. The pancreatic body is indistinct which may repr esent edema. No CT evidence of necrosis, hemorrhage, or pseudocyst. Marked prostatic hypertrophy. Ple ase note CT cannot effectively identify or exclude primary prostate cancer. Prominent but otherwise n ormal spleen containing a tiny benign cyst. The adrenal glands are normal. Simple right renal cysts. Punctate nonobstructing left renal calculi. No hydronephrosis or ureterectasis.. Peritoneum and bowel: Mildly enlarged appendix. Overall the findings do not support acute appendiciti s. Diverticulosis with no evidence of acute diverticulitis. Radiographically normal small bowel.. Nodes and vessels: No retroperitoneal or mesenteric adenopathy. Aorta and inferior vena cava are no rmal in caliber. Miscellaneous: No ventral hernias. PELVIS: Genitourinary: Possible nodular thickening along the posterior aspect of the bladder.. Miscellaneous: No inguinal hernias or adenopathy. Bones: No suspicious bony lesions. No vertebral body compression fractures. IMPRESSION: 1. Indistinct pancreas most consistent with minimal edema which can be seen in the setting of acute p ancreatitis. There are calcifications representing the sequelae of chronic pancreatitis. 2. Lymphadenopathy in the estella hepatis and paracardial lymph nodes may be inflammatory related to th e patient's possible pancreatitis. Lymphoma cannot be excluded. 3. Mildly enlarged appendix. Overall CT findings do not support acute appendicitis. If there is clini tiffani concern for acute appendicitis recommend surgical consultation. 4. Prosthetic hypertrophy. Please note cannot effectively identify or exclude primary prostate cancer . 5. Nodularity in the posterior bladder wall may be related to enlarged prostate. Please correlate for any hematuria on urinalysis. Consider cystoscopy. Dictated by: Jackson Croft M.D. on 12/06/2016 at 20:03 Approved by: Jackson Croft M.D. on 12/06/2016 at 20:13
[2016-12-06] MEDS: Insulin Human REGular 300 Unit/3 mL Inj SUBQ SCH (21:07)
[2016-12-07] VITALS (16 sets, daily range): BP systolic 146–180; BP diastolic 57–87; PULSE 60–110; RESP 16–19; O2SAT 94–98
[2016-12-07] MEDS: 0.9% Sodium Chloride 1,000 ML IV SCH ×2 (00:45→09:20)
[2016-12-07] MEDS: Insulin Human REGular 300 Unit/3 mL Inj SUBQ SCH ×5 (02:35→22:43)
--- NOTE | 2016-12-07 05:59 | NUR ---
Bowel Movement Pt had a total of 7 episode of small semi-formed stool throughout night, Dr. Wright made aware, no new orders at this time.
[2016-12-07 06:57] LABS: BASOPHILS % (AUTO) 0.1 % (0-3); EOSINOPHILS % (AUTO) 0.1 % (0-5); MONOCYTES % (AUTO) 7.8 % (4-12); Mean Corpuscular Hemoglobin 32.7 pg (27.0-35.0); Mean Corpuscular Volume 98.5 fL (81-100); NEUTROPHILS % (AUTO) 34.5 % (40-74); Platelet Count 66 bil/L (150-400)
[2016-12-07 07:29] LABS: Magnesium 1.6 mg/dL (1.6-2.6); Phosphorus 2.4 mg/dL (2.5-4.9)
[2016-12-07] MEDS ORDERED: 0.9% Sodium Chloride 250 ML IV ONE (08:45)
[2016-12-07] MEDS ORDERED: Magnesium Sulf 2 Gm/50mL Water 2 GM in IV Premix 1 EACH IV ONE (09:30)
--- NOTE | 2016-12-07 11:17 | NUR ---
Case Management: IMM given and explained to and pt. Megan RAMEY RN
--- NOTE | 2016-12-07 12:55 | NUR ---
Diet Per MD, to start pt on full liquids and advance as tolerated.
[2016-12-07] MEDS ORDERED: Furosemide 10 mg/mL 2 mL Inj IVPUSH ONE (14:10)
--- NOTE | 2016-12-07 14:13 | PCM.PNMED ---
Subjective Date of Service Dec 07, 2016 Subjective Patient continues to have generalized weakness. Transfusion of 2 PRBCs requested. Patient has antibodies and blood bank trying to get him blood. Patient denies history of transfusions. Denies abdominal pain. Started on clear liquid diet. Tried to reach out to Dr. Rosen his oncologist to see if he has biopsy results available. He is off and not working today. Exam Vital Signs Vital Sign - Last Date Time Temp Pulse Resp B/P Pulse Ox O2 Delivery O2 Flow Rate FiO2 12/07/16 08:00 110 12/07/16 05:57 17 166/74 94 12/07/16 00:30 36.4 Room Air Exam NAD, comfortably laying down on the bed Pale no JVD, GIII/ systolic murmur at apex RRR, nl s1, s2 no mrg CTAB, no w,c S,ND,NT,normoactive BS+. Soft abdomen warm, no edema, pulses 2/2 IVs and Medications Medications Reviewed: Medications were reviewed in detail Lab and Diagnostics Result Diagram: 12/07/1660412/07/16604 X-Rays, CTs and MRIs PROCEDURE: CT ABDOMEN AND PELVIS WITH CONTRAST ([id number]) INDICATIONS: pancreatitis TECHNIQUE: After the administration of oral and intravenous contrast, 5 mm thick sections acquired from the diaphragms to the symphysis. 5 mm thick coronal and sagittal reformats were performed. For radiation dose reduction, the following was used : automated exposure control, adjustment of mA and/or kV according to patient size. COMPARISON: [facility], CT, CT CHEST W CON, 11/29/2016, 14:47. Abdomen pelvis CT from 01/23/2006 FINDINGS: Image quality: Excellent. ABDOMEN: Lung bases: 3 mm left lower lobe pulmonary nodule stable since at least 2005. Otherwise lung bases are clear. Heart size is normal. Prominent pericardial lymph nodes measuring up to 9 mm (se 2 im 15). Solid organs: Mildly contracted but otherwise radiographically normal gallbladder. Enlarged estella hepatis lymph nodes measuring up to 2.3 CM (for example se 2 im 25). Prostatic hypertrophy. Pancreatic calcifications consistent with previous pancreatitis. The pancreatic body is indistinct which may represent edema. No CT evidence of necrosis, hemorrhage, or pseudocyst. Marked prostatic hypertrophy. Please note CT cannot effectively identify or exclude primary prostate cancer. Prominent but otherwise normal spleen containing a tiny benign cyst. The adrenal glands are normal. Simple right renal cysts. Punctate nonobstructing left renal calculi. No hydronephrosis or ureterectasis.. Peritoneum and bowel: Mildly enlarged appendix. Overall the findings do not support acute appendicitis. Diverticulosis with no evidence of acute diverticulitis. Radiographically normal small bowel.. Nodes and vessels: No retroperitoneal or mesenteric adenopathy. Aorta and inferior vena cava are normal in caliber. Miscellaneous: No ventral hernias. PELVIS: Genitourinary: Possible nodular thickening along the posterior aspect of the bladder.. Miscellaneous: No inguinal hernias or adenopathy. Bones: No suspicious bony lesions. No vertebral body compression fractures. IMPRESSION: 1. Indistinct pancreas most consistent with minimal edema which can be seen in the setting of acute pancreatitis. There are calcifications representing the sequelae of chronic pancreatitis. 2. Lymphadenopathy in the estella hepatis and paracardial lymph nodes may be inflammatory related to the patient's possible pancreatitis. Lymphoma cannot be excluded. 3. Mildly enlarged appendix. Overall CT findings do not support acute appendicitis. If there is clinical concern for acute appendicitis recommend surgical consultation. 4. Prosthetic hypertrophy. Please note cannot effectively identify or exclude primary prostate cancer. 5. Nodularity in the posterior bladder wall may be related to enlarged prostate. Please correlate for any hematuria on urinalysis. Consider cystoscopy. Dictated by: Jackson Croft M.D. on 12/06/2016 at 20:03 Assessment & Plan Acute, active # Severe symptomatic anemia requiring transfusion -generalized weakness, progressively worsening, ddx: worsening MDS or new onset lymphoma, worsening anemia, -continue NS 125cc/hr -Transfusion of 2 PRBCs requested. Patient has antibodies and blood bank trying to get him blood. Patient denies history of transfusions. -awaits biopsy result from mandible/upper arm # Enterococcus UTI -Ampicillin IV started -Urinalysis with pyuria and urine culture growing enterococcus. Awaiting sensitivity # probable acute on chronic pancreatitis, POA, recurrent within a month, no GB stones/ETOH, could be due to metformin use - abd CT with contrast shows Indistinct pancreas most consistent with minimal edema which can be seen in the setting of acute pancreatitis. -given no abdominal pain, monitor w/o narcotics. Started on liquid diet and advance as tolerated - lipase 144. Lipase in 800s on prior admission during acute pancreatitis. Discharge lipase was 38 -NS 125ml/h #Suspected lymphoma -Biopsy of lymph node done few days ago, awaiting the results -Patient also has lymph nodes on estella hepatis and behind bladder on CT. Subomental mass seen , left shoulder mass biopsied recently # uncontrolled DM, POA, recent a1c 9.6 up trending, this could represent worsening pancreatic inflammatory conditions, -RISS q6h while NPO, # chronic anemia, thrombocytopenia, with MDS, POA, worsened from baseline, #Acute diarrhea -C. difficile requested given recent treatment of UTI Chronic, stable #Hypertension, hold BP meds for now #Hyperlipidemia, hold statin for now #Gastroesophageal reflux disease, stable #Prostate enlargement, stable, dispo:Patient will be admitted with inpatient status with expectation of inpatient therapy for more than 2 midnights dvt ppx:SCD given thrombocytopenia Full code disposition: 2-3 days pending management of anemia and workup Dalton Metz MD Dec 07, 2016 14:13
[2016-12-07] MEDS ORDERED: Ampicillin Inj 2,000 MG in 0.9% Sodium Chloride 100 ML IV SCH (14:30)
[2016-12-07] MEDS: Ampicillin Inj 2,000 MG in 0.9% Sodium Chloride 100 ML IV SCH (18:10)
--- NOTE | 2016-12-07 19:35 | NUR ---
Blood transfusion There was a long delay for blood transfusion r/t difficulty for lab to test an antibody present in pts blood, likely r/t pts myelodysplastic syndrome. Finally got the blood and started it at 1520, pt feels much better after first unit. VS have still been hypertensive and pulse in 90s, but pt had no adverse reaction to blood admin. 2nd unit now started at 1930 after pt received lasix dose in between and ampicillin as well. Pt is improving in many areas. The highest of fives and thanks to the hard work by the blood bank on this.
[2016-12-08] VITALS (8 sets, daily range): BP systolic 157–189; BP diastolic 73–89; PULSE 74–99; RESP 18–20; O2SAT 96–98
[2016-12-08] MEDS: Ampicillin Inj 2,000 MG in 0.9% Sodium Chloride 100 ML IV SCH ×4 (00:10→18:05)
--- NOTE | 2016-12-08 03:30 | NUR ---
Blood Transfusion Pt. received 2nd unit of PRBC this shift, started at 1930 verified by 2 RN and completed by 2214, VS stable comparable to baseline, on continuous tele monitoring SR with PAC and PVC per case monitor, HR in 90s, No notable adverse reaction during and after transfusion, no any kind of bleeding reported or observes this shift, Pt. have been using urinal and bedside commode for toileting, hourly checks, call light in reach at all times, will continue to monitor.
[2016-12-08] MEDS: Insulin GLARgine 100 Unit/mL Syringe SUBQ SCH ×2 (08:30→10:01)
[2016-12-08] MEDS ORDERED: Lisinopril 40 Tablet PO SCH (08:30)
[2016-12-08 08:56] LABS: Mean Corpuscular Hemoglobin 32.2 pg (27.0-35.0); Mean Corpuscular Volume 90.8 fL (81-100); Platelet Count 65 bil/L (150-400)
[2016-12-08] MEDS: Insulin Human REGular 300 Unit/3 mL Inj SUBQ SCH ×4 (09:18→20:56)
[2016-12-08 09:27] LABS: BASOPHILS % (AUTO) 0 % (0-3); EOSINOPHILS % (AUTO) 0 % (0-5); MONOCYTES % (AUTO) 7 % (4-12); NEUTROPHILS % (AUTO) 42 % (40-74)
[2016-12-08 10:19] LABS: Magnesium 1.9 mg/dL (1.6-2.6); Phosphorus 2.5 mg/dL (2.5-4.9)
--- NOTE | 2016-12-08 11:45 | NUR ---
Duncan Patient reports urgency and frequency to voiding, also reports feeling like bladder is not emptying. Abdomen distended and painful to touch. Verbal order received to bladder scan and place duncan if retaining greater than 150mls. Bladder scan shows greater than 999mls. 16 Fr duncan placed. Addendum: 12/08/16 at 1830 by NOEMI GALVAN RN Initial urine return yellow, several hours later urine dark pink tinged. Hospitalist made aware and assessed, will check H/H with am labs.
--- NOTE | 2016-12-08 13:48 | PCM.PNMED ---
Subjective Date of Service Dec 08, 2016 Subjective patient continues to have generalized weakness despite transfusion. Hemoglobin responded appropriately. Patient was given IV Lasix 20 mg once after transfusion given high blood pressure. Patient had marked urinary frequency and urgency and slept poorly overnight. Continues to have urinary frequency despite> 12hrs after the last Lasix dose. Continues to have frequent loose stool. C. difficile negative. Exam Vital Signs Vital Sign - Last Date Time Temp Pulse Resp B/P Pulse Ox O2 Delivery O2 Flow Rate FiO2 12/08/16 09:23 36.6 90 20 170/84 98 Room Air Intake and Output 12/07/16 12/07/16 12/08/16 Cumulative From/Thru 15:00 23:00 07:00 12/06/16 14:04 - 12/08/16 06:03 Intake Total 900 ml 730 ml 1630 ml Output Total 2400 ml 2400 ml Balance 900 ml -1670 ml -770 ml Intake Oral 730 ml 730 ml IV Total 200 ml 200 ml Packed Cells 700 ml 700 ml Output Urine Total 2400 ml 2400 ml # Bowel Movements 2 2 Exam NAD, comfortably laying down on the bed Pale no JVD, GIII/ systolic murmur at apex RRR, nl s1, s2 no mrg CTAB, no w,c S,ND,NT,normoactive BS+. Soft abdomen warm, no edema, pulses 2/2 IVs and Medications Medications Reviewed: Medications were reviewed in detail Lab and Diagnostics Result Diagram: 12/08/16 0852 12/08/16 0852 X-Rays, CTs and MRIs PROCEDURE: CT ABDOMEN AND PELVIS WITH CONTRAST ([id number]) INDICATIONS: pancreatitis TECHNIQUE: After the administration of oral and intravenous contrast, 5 mm thick sections acquired from the diaphragms to the symphysis. 5 mm thick coronal and sagittal reformats were performed. For radiation dose reduction, the following was used : automated exposure control, adjustment of mA and/or kV according to patient size. COMPARISON: [facility], CT, CT CHEST W CON, 11/29/2016, 14:47. Abdomen pelvis CT from 01/23/2006 FINDINGS: Image quality: Excellent. ABDOMEN: Lung bases: 3 mm left lower lobe pulmonary nodule stable since at least 2005. Otherwise lung bases are clear. Heart size is normal. Prominent pericardial lymph nodes measuring up to 9 mm (se 2 im 15). Solid organs: Mildly contracted but otherwise radiographically normal gallbladder. Enlarged estella hepatis lymph nodes measuring up to 2.3 CM (for example se 2 im 25). Prostatic hypertrophy. Pancreatic calcifications consistent with previous pancreatitis. The pancreatic body is indistinct which may represent edema. No CT evidence of necrosis, hemorrhage, or pseudocyst. Marked prostatic hypertrophy. Please note CT cannot effectively identify or exclude primary prostate cancer. Prominent but otherwise normal spleen containing a tiny benign cyst. The adrenal glands are normal. Simple right renal cysts. Punctate nonobstructing left renal calculi. No hydronephrosis or ureterectasis.. Peritoneum and bowel: Mildly enlarged appendix. Overall the findings do not support acute appendicitis. Diverticulosis with no evidence of acute diverticulitis. Radiographically normal small bowel.. Nodes and vessels: No retroperitoneal or mesenteric adenopathy. Aorta and inferior vena cava are normal in caliber. Miscellaneous: No ventral hernias. PELVIS: Genitourinary: Possible nodular thickening along the posterior aspect of the bladder.. Miscellaneous: No inguinal hernias or adenopathy. Bones: No suspicious bony lesions. No vertebral body compression fractures. IMPRESSION: 1. Indistinct pancreas most consistent with minimal edema which can be seen in the setting of acute pancreatitis. There are calcifications representing the sequelae of chronic pancreatitis. 2. Lymphadenopathy in the estella hepatis and paracardial lymph nodes may be inflammatory related to the patient's possible pancreatitis. Lymphoma cannot be excluded. 3. Mildly enlarged appendix. Overall CT findings do not support acute appendicitis. If there is clinical concern for acute appendicitis recommend surgical consultation. 4. Prosthetic hypertrophy. Please note cannot effectively identify or exclude primary prostate cancer. 5. Nodularity in the posterior bladder wall may be related to enlarged prostate. Please correlate for any hematuria on urinalysis. Consider cystoscopy. Dictated by: Jackson Croft M.D. on 12/06/2016 at 20:03 Assessment & Plan Acute, active # Severe symptomatic anemia requiring transfusion -generalized weakness, progressively worsening, worsening anemia probably due to new onset lymphoma, -Transfused 2 PRBCs 12/07. Patient had warm antibodies and blood bank had hard time getting him blood. Patient denies history of prior transfusions. -await biopsy result from mandible/upper arm -Discussed with Dr. Rosen today 12/08. Continue transfusion as needed and he will evaluate patient on Saturday # Enterococcus UTI -Ampicillin IV started -Urinalysis with pyuria and urine culture growing enterococcus. pansensitive # probable acute on chronic pancreatitis, POA, recurrent within a month, no GB stones/ETOH, could be due to metformin use - abd CT with contrast shows Indistinct pancreas most consistent with minimal edema which can be seen in the setting of acute pancreatitis. -given no abdominal pain, monitor w/o narcotics. Started on liquid diet and advance as tolerated - lipase 144. Lipase in 800s on prior admission during acute pancreatitis. Discharge lipase was 38 -Initially treated with NS 125ml/h. Now discontinued #Suspected new lymphoma -Biopsy of lymph node done few days ago, awaiting the results -Patient also has lymph nodes on estella hepatis and behind bladder on CT. Subomental mass seen , left shoulder mass biopsied recently # uncontrolled DM, POA, recent a1c 9.6 up trending, this could represent worsening pancreatic inflammatory conditions, -Home insulin Lantus 18-20 units at bedtime. Started Lantus 16 units daily in am # chronic anemia, thrombocytopenia, with MDS, POA, worsened from baseline, #Acute diarrhea -C. difficile negative -Loperamide when necessary # Urinary frequency due to UTI and a dose of Lasix after transfusion -he also has history of BPH -will add Flomax -We will consider Matt insertion if symptoms continue to bother him. Chronic, stable #Hypertension, resumed lisinopril today 12/08 #Hyperlipidemia, hold statin for now #Gastroesophageal reflux disease, stable #Prostate enlargement, stable, dispo:Patient admitted with inpatient status with expectation of inpatient therapy for more than 2 midnights dvt ppx:SCD given thrombocytopenia Full code disposition: 2-3 days pending management of anemia and workup Dalton Metz MD Dec 08, 2016 13:48
[2016-12-08] MEDS: Ondansetron 2 mg/mL 2 mL Inj IVPUSH PRN ×2 (17:22→18:16)
--- NOTE | 2016-12-08 18:31 | NUR ---
Blood Pressure Patient BP 185/83 Hospital notified, order received for PO Amlodipine 5mg. BP currently 157/73.
[2016-12-09] VITALS (9 sets, daily range): BP systolic 151–162; BP diastolic 68–80; PULSE 75–105; RESP 16–19; O2SAT 96–98
[2016-12-09] MEDS: Ampicillin Inj 2,000 MG in 0.9% Sodium Chloride 100 ML IV SCH ×5 (00:18→23:39)
[2016-12-09] MEDS ORDERED: 0.9% Sodium Chloride 100 ML ONE (06:04)
--- NOTE | 2016-12-09 06:26 | NUR ---
URINE Pt had duncan placed 12/08 per day shift report r/t retention. Per day report, urine was dark pink tinged. At end of mold shifter, urine appears dark tea colored with a slight red tinge to it, translucent, no obvious clots. Will pass onto day shift to continue to monitor.
[2016-12-09] MEDS: Insulin Human REGular 300 Unit/3 mL Inj SUBQ SCH ×4 (07:30→21:54)
[2016-12-09 07:44] LABS: EOSINOPHILS % (AUTO) 0 % (0-5); Mean Corpuscular Hemoglobin 31.7 pg (27.0-35.0); Mean Corpuscular Volume 93.6 fL (81-100); Platelet Count 50 bil/L (150-400)
[2016-12-09] MEDS: Insulin GLARgine 100 Unit/mL Syringe SUBQ SCH (08:13)
[2016-12-09 08:27] LABS: BASOPHILS % (AUTO) 0 % (0-3); MONOCYTES % (AUTO) 9 % (4-12); NEUTROPHILS % (AUTO) 40 % (40-74)
--- NOTE | 2016-12-09 10:55 | NUR ---
BASHIR signed. Bridget Amos EDGER MACHINE OPERATOR
--- NOTE | 2016-12-09 12:20 | NUR ---
Social Work- Initial Assessment Data: See Initial Assessment. Pt is a 81 year old male admitted 12/06/16 for pancreatitis, elevated sugar, weakness per H&P. Pt discussed in AM rounds, pt is not medically stable for discharge anticipate multiple more days. Pt was transfused yesterday. Pt may have a new diagnosis of lymphoma. Pt's oncologist Dr. Rosen will review pt and present plan of care tomorrow to pt and Hospitalist. Pt to also receive voiding trial tomorrow. Pt's insurance is [employer]. Pt's PCP is Enrique Macedo MD. Pt's NOK is Minal Velasco, , . Pt's advance directives are on file. Pt's readmit score is 4- high risk. SW met with pt at bedside regarding discharge plan, SW role explained. Pt alert and oriented x3. Pt resides in [place] with his where he is independent at baseline. Pt uses no DME at baseline, but has a cane available to him for use. Pt has grab bars in the shower at his home. Pt continues to drive. Pt has no HH or SNF history, no LTC or VA benefits. PT has been asked to evaluate pt 12/07 but were unable due to low H&H. PT evaluation pending at this time. Pt is typically independent but has been feeling increasingly weak. SW will continue to follow pt and recommendations after PT evaluation. Pt anticipated to discharge home with to transport via POV. SW will continue to follow and await MD orders for further discharge planning. Assessment: Pt who is independent at baseline. Plan: PT evaluation pending at this time. SW will continue to follow pt and recommendations after PT evaluation. Pt anticipated to discharge home with to transport via POV. SW will continue to follow and await MD orders for further discharge planning. WILLY Mayers Addendum: 12/09/16 at 1226 by FANG LAMAS SS Amended: Links added.
--- NOTE | 2016-12-09 13:09 | NUR ---
Sutures Verbal order received from hospitalist to remove pt's sutures in left upper arm. Sutures removed with no complications.
--- NOTE | 2016-12-09 14:09 | PCM.PNMED ---
Subjective Date of Service Dec 09, 2016 Subjective Patient feeling better overall. Generalized weakness improving. Had urinary retention >1L yesterday and Duncan placed. Flomax started. Hemoglobin stable. Denies abdominal pain Exam Vital Signs Vital Sign - Last Date Time Temp Pulse Resp B/P Pulse Ox O2 Delivery O2 Flow Rate FiO2 12/09/16 10:08 36.8 94 18 158/68 98 Room Air Intake and Output 12/08/16 12/08/16 12/09/16 Cumulative From/Thru 15:00 23:00 07:00 12/06/16 14:04 - 12/09/16 06:25 Intake Total 2476 ml 600 ml 4706 ml Output Total 2300 ml 750 ml 5450 ml Balance 176 ml -150 ml -744 ml Intake Oral 750 ml 600 ml 2080 ml IV Total 1726 ml 1926 ml Packed Cells 700 ml Output Urine Total 2300 ml 750 ml 5450 ml # Bowel Movements 3 5 Exam Gen. patient is lying comfortably in hospital bed HEENT: Head is normocephalic atraumatic, Pupils equal and reactive, extraocular movements intact, pallor Lungs clear to auscultation bilaterally Heart regular rate and rhythm, grade 3 systolic murmur Abdomen soft nontender without hepatosplenomegaly Lymph nodes:subomental LN , left shoulder lymph node recently excised for biopsy. Cleanly healing. No lymph node on cervical , axillary and groin Extremities pulses are present dorsalis pedis posterior tibialis and radial. Skin is warm and dry there are no rashes, Psych alert and oriented to person place and time Neuro cranial nerves II through XII are grossly intact Lymph: There is no lymphadenopathy appreciated in the cervical supra infraclavicular regions : no duncan IVs and Medications Medications Reviewed: Medications were reviewed in detail Lab and Diagnostics Result Diagram: 12/09/1671412/09/16714 X-Rays, CTs and MRIs PROCEDURE: CT ABDOMEN AND PELVIS WITH CONTRAST ([id number]) INDICATIONS: pancreatitis TECHNIQUE: After the administration of oral and intravenous contrast, 5 mm thick sections acquired from the diaphragms to the symphysis. 5 mm thick coronal and sagittal reformats were performed. For radiation dose reduction, the following was used : automated exposure control, adjustment of mA and/or kV according to patient size. COMPARISON: [facility], CT, CT CHEST W CON, 11/29/2016, 14:47. Abdomen pelvis CT from 01/23/2006 FINDINGS: Image quality: Excellent. ABDOMEN: Lung bases: 3 mm left lower lobe pulmonary nodule stable since at least 2005. Otherwise lung bases are clear. Heart size is normal. Prominent pericardial lymph nodes measuring up to 9 mm (se 2 im 15). Solid organs: Mildly contracted but otherwise radiographically normal gallbladder. Enlarged estella hepatis lymph nodes measuring up to 2.3 CM (for example se 2 im 25). Prostatic hypertrophy. Pancreatic calcifications consistent with previous pancreatitis. The pancreatic body is indistinct which may represent edema. No CT evidence of necrosis, hemorrhage, or pseudocyst. Marked prostatic hypertrophy. Please note CT cannot effectively identify or exclude primary prostate cancer. Prominent but otherwise normal spleen containing a tiny benign cyst. The adrenal glands are normal. Simple right renal cysts. Punctate nonobstructing left renal calculi. No hydronephrosis or ureterectasis.. Peritoneum and bowel: Mildly enlarged appendix. Overall the findings do not support acute appendicitis. Diverticulosis with no evidence of acute diverticulitis. Radiographically normal small bowel.. Nodes and vessels: No retroperitoneal or mesenteric adenopathy. Aorta and inferior vena cava are normal in caliber. Miscellaneous: No ventral hernias. PELVIS: Genitourinary: Possible nodular thickening along the posterior aspect of the bladder.. Miscellaneous: No inguinal hernias or adenopathy. Bones: No suspicious bony lesions. No vertebral body compression fractures. IMPRESSION: 1. Indistinct pancreas most consistent with minimal edema which can be seen in the setting of acute pancreatitis. There are calcifications representing the sequelae of chronic pancreatitis. 2. Lymphadenopathy in the estella hepatis and paracardial lymph nodes may be inflammatory related to the patient's possible pancreatitis. Lymphoma cannot be excluded. 3. Mildly enlarged appendix. Overall CT findings do not support acute appendicitis. If there is clinical concern for acute appendicitis recommend surgical consultation. 4. Prosthetic hypertrophy. Please note cannot effectively identify or exclude primary prostate cancer. 5. Nodularity in the posterior bladder wall may be related to enlarged prostate. Please correlate for any hematuria on urinalysis. Consider cystoscopy. Dictated by: Jackson Croft M.D. on 12/06/2016 at 20:03 Assessment & Plan Acute, active # Severe symptomatic anemia requiring transfusion -generalized weakness, progressively worsening, worsening anemia probably due to new onset lymphoma, -Transfused 2 PRBCs 12/07. Patient had warm antibodies and blood bank had hard time getting him blood. Patient denies history of prior transfusions. -await biopsy result from mandible/upper arm -Discussed with Dr. Rosen 12/08. Continue transfusion as needed and he will evaluate patient on Saturday -Recent lymph node biopsy results pending # Enterococcus UTI -Ampicillin IV started -Urinalysis with pyuria and urine culture growing enterococcus. pansensitive # probable acute on chronic pancreatitis, POA,, no GB stones/ETOH, could be due to metformin use -Patient came with symptoms of anemia. Did not have any abdominal pain. Lipase mildly elevated from recent discharge level and minimal reagan-pancreatic edema - abd CT with contrast shows Indistinct pancreas most consistent with minimal edema which can be seen in the setting of acute pancreatitis. -given no abdominal pain, monitor w/o narcotics. Started on liquid diet and advance as tolerated - lipase 144. Lipase in 800s on prior admission during acute pancreatitis. Discharge lipase was 38 -Initially treated with NS 125ml/h. Now discontinued # Acute urinary retention -Had urinary retention >1L yesterday and Duncan placed. Flomax started -May do voiding trial tomorrow #Suspected new lymphoma -Biopsy of lymph node done few days ago, awaiting the results -Patient also has lymph nodes on estella hepatis and behind bladder on CT. Subomental mass seen , left shoulder mass biopsied recently # uncontrolled DM, POA, recent a1c 9.6 up trending, this could represent worsening pancreatic inflammatory conditions, -Home insulin Lantus 18-20 units at bedtime. Started Lantus 16 units daily in am # chronic anemia, thrombocytopenia, with MDS, POA, worsened from baseline, #Acute diarrhea -C. difficile negative -Loperamide when necessary # Urinary frequency due to UTI and a dose of Lasix after transfusion -he also has history of BPH -will add Flomax -We will consider Duncan insertion if symptoms continue to bother him. Chronic, stable #Hypertension, resumed lisinopril today 12/08 #Hyperlipidemia, hold statin for now #Gastroesophageal reflux disease, stable #Prostate enlargement, stable, dispo:Patient admitted with inpatient status with expectation of inpatient therapy for more than 2 midnights dvt ppx:SCD given thrombocytopenia Full code disposition: 2-3 days pending management of anemia and workup Dalton Metz MD Dec 09, 2016 14:09
--- NOTE | 2016-12-09 15:33 | NUR ---
Evaluation completed/up ad emile Please go to "Notes" then click on "Assessments and Notes" (bottom left corner of screen). Then select appropriate discipline tab on top of screen. no further PT; OK to be up ad emile
--- NOTE | 2016-12-09 16:30 | NUR ---
Blood Pressure Pt blood pressure continues to be elevated despite lisinopril dose this am. BP 162/70 currently. Hospitalist notified and orders received for amlodipine 5mg.
[2016-12-09] MEDS ORDERED: 0.9% Sodium Chloride 250 ML ONE (23:37)
[2016-12-10 02:22] VITALS: BP 150/79; PULSE 85; RESP 16; O2SAT 95
--- NOTE | 2016-12-10 04:19 | NUR ---
Activity pt has been asleep most of the shift. denies pain. BS 214 at HS. Administered scheduled insulin. at 0220, BS dropped to 107. Matt draining yumi urine via gravity; no blood or clot. BP has been 150s/70s. pt didn't get OOB during this shift. ABX treatment has been administered per schedule. will continue to monitor and provide care.
[2016-12-10] MEDS: Ampicillin Inj 2,000 MG in 0.9% Sodium Chloride 100 ML IV SCH ×2 (05:39→11:50)
[2016-12-10 05:45] VITALS: BP 154/76; PULSE 92; RESP 16; O2SAT 96
[2016-12-10 07:08] LABS: Mean Corpuscular Hemoglobin 31.8 pg (27.0-35.0); Mean Corpuscular Volume 92.5 fL (81-100); Platelet Count 45 bil/L (150-400)
[2016-12-10] MEDS: Insulin Human REGular 300 Unit/3 mL Inj SUBQ SCH ×4 (07:30→21:39)
[2016-12-10] MEDS: Insulin GLARgine 100 Unit/mL Syringe SUBQ SCH (07:44)
[2016-12-10 07:53] LABS: BASOPHILS % (AUTO) 0 % (0-3); EOSINOPHILS % (AUTO) 0 % (0-5); MONOCYTES % (AUTO) 6 % (4-12); NEUTROPHILS % (AUTO) 48 % (40-74)
[2016-12-10 08:02] VITALS: PULSE 94
[2016-12-10 10:24] VITALS: PULSE 91
[2016-12-10] MEDS: Ondansetron 2 mg/mL 2 mL Inj IVPUSH PRN ×2 (12:45→17:47)
--- NOTE | 2016-12-10 14:38 | PCM.PNMED ---
Subjective Date of Service Dec 10, 2016 Subjective Denies any new issues/complaints Exam Vital Signs Vital Sign - Last Date Time Temp Pulse Resp B/P Pulse Ox O2 Delivery O2 Flow Rate FiO2 12/10/16 10:24 91 12/10/16 05:45 36.7 16 154/76 96 Room Air Intake and Output 12/09/16 12/09/16 12/10/16 Cumulative From/Thru 15:00 23:00 07:00 12/06/16 14:04 - 12/10/16 06:20 Intake Total 1026 ml 630 ml 6362 ml Output Total 600 ml 675 ml 6725 ml Balance 426 ml -45 ml -363 ml Intake Oral 786 ml 400 ml 3266 ml IV Total 240 ml 230 ml 2396 ml Packed Cells 700 ml Output Urine Total 600 ml 675 ml 6725 ml # Bowel Movements 0 5 General: Alert, Oriented X3, Cooperative, No Acute Distress Head: Normal Eyes: Scleral Anicteric Mouth: Mucous Membr Moist/[place] Neck: Supple Chest & Lungs: Chest Wall Normal, Clear to auscultation & percussion Cardiovascular: Regular Rate/Rhythm Pulses: NL carotid, radial, femoral, DP, PT Abdomen: Non-tender, Non-distended, Normoactive bowel tones, Soft Extremities: No cyanosis/clubbing/edma bilat Neurological: Grossly Neurologically Intact, Normal Speech IVs and Medications Medications Reviewed: Medications were reviewed in detail Lab and Diagnostics Result Diagram: 12/10/16 0648 12/10/16 0648 X-Rays, CTs and MRIs PROCEDURE: CT ABDOMEN AND PELVIS WITH CONTRAST ([id number]) INDICATIONS: pancreatitis TECHNIQUE: After the administration of oral and intravenous contrast, 5 mm thick sections acquired from the diaphragms to the symphysis. 5 mm thick coronal and sagittal reformats were performed. For radiation dose reduction, the following was used : automated exposure control, adjustment of mA and/or kV according to patient size. COMPARISON: [facility], CT, CT CHEST W CON, 11/29/2016, 14:47. Abdomen pelvis CT from 01/23/2006 FINDINGS: Image quality: Excellent. ABDOMEN: Lung bases: 3 mm left lower lobe pulmonary nodule stable since at least 2005. Otherwise lung bases are clear. Heart size is normal. Prominent pericardial lymph nodes measuring up to 9 mm (se 2 im 15). Solid organs: Mildly contracted but otherwise radiographically normal gallbladder. Enlarged estella hepatis lymph nodes measuring up to 2.3 CM (for example se 2 im 25). Prostatic hypertrophy. Pancreatic calcifications consistent with previous pancreatitis. The pancreatic body is indistinct which may represent edema. No CT evidence of necrosis, hemorrhage, or pseudocyst. Marked prostatic hypertrophy. Please note CT cannot effectively identify or exclude primary prostate cancer. Prominent but otherwise normal spleen containing a tiny benign cyst. The adrenal glands are normal. Simple right renal cysts. Punctate nonobstructing left renal calculi. No hydronephrosis or ureterectasis.. Peritoneum and bowel: Mildly enlarged appendix. Overall the findings do not support acute appendicitis. Diverticulosis with no evidence of acute diverticulitis. Radiographically normal small bowel.. Nodes and vessels: No retroperitoneal or mesenteric adenopathy. Aorta and inferior vena cava are normal in caliber. Miscellaneous: No ventral hernias. PELVIS: Genitourinary: Possible nodular thickening along the posterior aspect of the bladder.. Miscellaneous: No inguinal hernias or adenopathy. Bones: No suspicious bony lesions. No vertebral body compression fractures. IMPRESSION: 1. Indistinct pancreas most consistent with minimal edema which can be seen in the setting of acute pancreatitis. There are calcifications representing the sequelae of chronic pancreatitis. 2. Lymphadenopathy in the estella hepatis and paracardial lymph nodes may be inflammatory related to the patient's possible pancreatitis. Lymphoma cannot be excluded. 3. Mildly enlarged appendix. Overall CT findings do not support acute appendicitis. If there is clinical concern for acute appendicitis recommend surgical consultation. 4. Prosthetic hypertrophy. Please note cannot effectively identify or exclude primary prostate cancer. 5. Nodularity in the posterior bladder wall may be related to enlarged prostate. Please correlate for any hematuria on urinalysis. Consider cystoscopy. Dictated by: Jackson Croft M.D. on 12/06/2016 at 20:03 Assessment & Plan 81 year old male with Diabetes mellitus type II, hypertension, hyperlipidemia, recent pancreatitis, and myelodysplastic syndrome presenting with increasing weakness, lightheadedness. # Acute and severe symptomatic anemia. present on admission -generalized weakness, progressively worsening, worsening anemia probably due to new onset lymphoma, -Transfused 2 PRBCs 12/07. Patient had warm antibodies and blood bank had hard time getting him blood. Patient denies history of prior transfusions. -Discussed with Dr. Rosen 12/08. Continue transfusion as needed and he will evaluate patient on Saturday -Recent lymph node biopsy results pending # Acute Enterococcus UTI. Present on admission -Started on Ampicillin IV. Will change to Levofloxacin (dose per pharmacy) given sensitivities. # Possible acute on chronic pancreatitis, no GB stones/ETOH, could be due to metformin use -Patient came with symptoms of anemia. Did not have any abdominal pain. -Lipase mildly elevated from recent discharge level and minimal reagan-pancreatic edema -Abd CT with contrast shows Indistinct pancreas most consistent with minimal edema which can be seen in the setting of acute pancreatitis. -Given no abdominal pain, started on liquid diet and advance as tolerated # Acute urinary retention -Had urinary retention >1L on 12/08/16 and Matt placed. Flomax started -May do voiding trial tomorrow # Suspected new lymphoma -Biopsy of lymph node done few days ago, awaiting the results -Patient also has lymph nodes on estella hepatis and behind bladder on CT. -Subomental mass seen , left shoulder mass biopsied recently # Diabetes mellitus. Poorly controlled. Present on admission. -Recent HgA1C 9.6 -Home insulin Lantus 18-20 units at bedtime. -Started Lantus 16 units daily in am # Chronic anemia, thrombocytopenia, with MDS, POA, worsened from baseline -Plan as noted above # Acute diarrhea -C. difficile negative -Loperamide when necessary Chronic, stable #Hypertension -Resumed lisinopril 12/08 #Hyperlipidemia -Statin on hold for now # Gastroesophageal reflux disease, -stable Dispo: 1-2 days Michael Moran Dec 10, 2016 14:38
[2016-12-10] MEDS ORDERED: levoFLOXacin Dose Per Pharmacist XX ONE (14:40)
--- NOTE | 2016-12-10 14:58 | PCM.CONPHA ---
Subjective Date of Service: Dec 10, 2016 Generalized weakness, failure to thrive Reason for Pharmacy Consult: Levaquin Dosing Objective Vital Signs Date Time Temp Pulse Resp B/P Pulse Ox O2 Delivery O2 Flow Rate FiO2 12/10/16 10:24 91 12/10/16 08:02 94 12/10/16 05:45 36.7 92 16 154/76 96 Room Air 12/10/16 02:22 36.8 85 16 150/79 95 Room Air 12/09/16 21:50 37.1 79 18 156/76 97 Room Air 12/09/16 20:00 102 12/09/16 16:20 36.4 75 16 162/70 98 Room Air Intake and Output 12/08/16 12/09/16 12/10/16 00:00 00:00 00:00 Intake Total 900 ml 3206 ml 1626 ml Output Total 4700 ml 1350 ml Balance 900 ml -1494 ml 276 ml Weight (Kilograms): 79.09 Height (Feet): 5 Height (Inches): 10 Test 12/06/16 14:12 12/06/16 14:22 12/06/16 15:11 12/07/16 06:05 Urine Color Yellow (YELLOW) Urine Appearance Clear (CLEAR,HAZY) Urine pH 6.0 (5.0-8.0) Urine Specific [place] 1.015 (1.003-1.035) Urine Protein 30mg/dL (NEG,TRACE) Urine Glucose (UA) 1000mg/dL (NEGATIVE) Urine Ketones 15mg/dL (NEGATIVE) Urine Occult Blood Negative (NEGATIVE) Urine Nitrite Negative (NEGATIVE) Urine Bilirubin Negative (NEGATIVE) Urine Urobilinogen Normalmg/dL (NORMAL) Urine Leukocyte Esterase Trace (NEGATIVE) Urine RBC 0-2/hpf (0-2) Urine WBC 11-50/hpf (0-5) Urine Epithelial Cells Occasional/hpf (NONE-MOD) Urine Crystals None seen (NONE SEEN) Urine Bacteria Few/hpf (NONE-FEW) Urine Hyaline Casts None/lpf (NONE) Urine Granular Casts None seen (NONE SEEN) Urine Waxy Casts None seen (NONE SEEN) Urine Red Blood Cell Casts None seen (NONE SEEN) Urine White Blood Cell Casts None seen (NONE SEEN) Urine Mucus None seen (None Seen) Urine Trichomonas None seen (NONE SEEN) Urine Yeast None (NONE SEEN) Urinalysis Comment None Urine Culture Reflexed Indicated Troponin T < 0.010ug/L (0.0-0.011) Pro-B-Type Natriuretic Peptide 1163pg/mL (0-486) Lactic Acid Level 1.1mmol/L (0.4-2.0) Hemoglobin A1c 10.1% (4.8-5.6) Test 12/08/16 08:52 12/08/16 10:00 12/10/16 06:48 Lipase 139U/L (13-60) Procalcitonin 0.18ng/mL (0.00-0.08) Uric Acid 4.8mg/dL (2.6-7.2) Phosphorus Level 2.5mg/dL (2.5-4.9) Magnesium Level 1.9mg/dL (1.6-2.6) White Blood Count 6.5th/mm3 (3.8-10.1) Red Blood Count 2.80mil/mm3 (4.40-5.80) Hemoglobin 8.9g/dL (13.8-17.2) Hematocrit 25.9% (41.0-50.0) Mean Corpuscular Volume 92.5fL (81-100) Mean Corpuscular Hemoglobin 31.8pg (27.0-35.0) Mean Corpuscular Hemoglobin Concent 34.4% (32.0-37.0) Red Cell Distribution Width 15.7% (12.3-15.4) Platelet Count 45bil/L (150-400) Neutrophils (%) (Auto) 48% (40-74) Lymphocytes (%) (Auto) 40% (14-46) Monocytes (%) (Auto) 6% (4-12) Eosinophils (%) (Auto) 0% (0-5) Basophils (%) (Auto) 0% (0-3) Band Neutrophils % 4% (1-5) Metamyelocytes % 1% (0-0) Myelocytes % 1% (0-0) Sodium Level 139mEq/L (134-144) Potassium Level 3.6mEq/L (3.5-5.2) Chloride Level 104mEq/L (97-108) Carbon Dioxide Level 19mmol/L (18-29) Blood Urea Nitrogen 15mg/dL (8-27) Creatinine 0.88mg/dL (0.76-1.27) Estimat Glomerular Filtration Rate 88mL/min (>59) Glucose Level 125mg/dL (60-99) Calcium Level 7.6mg/dL (8.5-10.1) Total Bilirubin 0.5mg/dL (0.0-1.2) Aspartate Amino Transf (AST/SGOT) 20U/L (0-50) Alanine Aminotransferase (ALT/SGPT) 22U/L (0-44) Alkaline Phosphatase 168U/L (25-160) Total Protein 5.0g/dL (6.4-8.4) Albumin 2.9g/dL (3.4-5.0) Assessment/Plan Assessment/Plan [employer] MANAGEMENT A\ 81YO M WITH POSITIVE URINE CULTURE FOR ENTEROCOCCUS ENTEROCOCCUS SPECIES M.I.C Interp --------- ------ * CIPROFLOXACIN <=0.5 S * LEVOFLOXACIN 1 MD WOULD LIKE TO CHANGE TO LEVOFLOXACIN FROM AMPICLLIN GFR>60 P\ LEVOFLOXACIN 750MG PO DAILY CAN CONTINUE FOR 5DAYS OR UNTIL MD WOULD LIKE TO STOP THERAPY Chalo Drummond [facility] Dec 10, 2016 14:58
--- NOTE | 2016-12-10 15:08 | NUR ---
Mobilty Pt has denied any pain today, Tele SR in the 90's. Pt had a bit of nausea at about lunch time, PRN Zofran effective for this. Pt assisted to the bathroom to shower, complete bed linen change. Family at the bedside, waiting for Dr Rosen to arrive to see them. Pt calm and coop with care, using call light approp for all needs.
[2016-12-10 17:01] VITALS: BP 155/75; PULSE 99; RESP 16; O2SAT 96
[2016-12-10] MEDS: levoFLOXacin 750 mg Tablet PO SCH (17:07)
--- NOTE | 2016-12-10 18:07 | NUR ---
nausea pt. c/o nausea after metformin and levofloxacin given po; prn zofran 4mg iv given x1 with relief. Pt. tolerating saltine crackers and some dinner. at bedside assisting with care. Denies pain or discomfort. Serosanguinous drainage to neck biopsy site; telfa and tegaderm placed over site.
--- NOTE | 2016-12-10 18:15 | PROG NOTE ---
[address] [address] PROGRESS NOTE PATIENT: GIO ZARATE : 1935 MR#: [id number] ADMIT: 12/06/2016 JOB ID: [id number] DATE: 12/10/2016 SUBJECTIVE: The patient is being seen today per hospital rounds. Events over the past one month are noted. The patient presents to the [facility] for his 4th admission this month on December 06, 2016 for clinical presentation of generalized weakness, decreased appetite, low-grade nausea and weight loss with overall failure to thrive and to maintain independence at home. The patient has also had previous hospital admissions for symptoms including abdominal discomfort which identified an elevated lipase and CT scan findings consistent with pancreatitis. The patient also had left chest wall discomfort which led to workup including treadmill stress testing as well as echocardiogram, EKG showing no evidence of acute ischemic event, valvular or myocardial disease. Finally, the patient's microscopic workup identifying persistent enterococcus in the urine currently being treated with appropriate antibiotics based on sensitivities. More pertinent to the patient's symptoms, however, was a four week presentation of new skin lesion involving the left submental and left forearm. The patient subsequently had biopsy of both lesions on December 02, 2016. Preliminary path review [facility]. Stephens [place] [facility] with findings for microscopy and IHC suggestive of a myeloid sarcoma. The patient will need flow cytometry to confirm diagnosis. Also on the differential but less likely would be a T-cell peripheral leukemia. Clinically, the patient continues to feel overall fatigued. He is unable to ambulate well and is essentially bedridden. The also noted worsening memory. 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 Confirmatory flow cytometry pending at this time. Further staging workup for AML likely to occur next week. 2. Myelodysplastic syndrome, refractory cytopenia with unilateral dysplasia. IPS score of 1.5 with a standard IPS score of 0.5. The patient had normal MDS FISH panel. 3. Pancreatitis identified on blood work dated November 16, 2006 with a lipase elevated at [address] of the abdomen and pelvis on November 26, 2016 showing inflammatory changes along the body of the pancreas consistent with pancreatitis. Symptomatic support at this time. 4. Diabetes. 5. Hypertension. 6. Hypercholesterolemia. MEDICATIONS IN-HOUSE: 1. Lisinopril 40 mg daily. 2. Simvastatin 10 mg daily. 3. Metformin 1000 mg b.i.d. PHYSICAL EXAMINATION: Vital signs showing a weight of 79.09, blood pressure 154/76, temperature 36, pulse is 92, respiratory rate 16. He is saturating at 96% room air. Patient was lying in bed comfortable. Affect seemed appropriate. He tracked well and was able to describe events over the past month. Well-healed submental incision noted. LABORATORY DATA: From December 10, 2016 reporting a white blood cell count of 6.5, hemoglobin 8.9, platelet count of 45 with a differential 48% neutrophils, 40% lymphocytes, 6% monocytes, 4% bands, 1% metamyelocytes and 1% myelocytes. CMP with a sodium of 139, potassium 3.6, serum creatinine 0.88, calcium 7.6, AST 20, ALT 22, alk phos 168. Additional imaging studies include a CT of the abdomen and pelvis dated November 16, 2016. CT of the chest dated November 29, [address] of the abdomen and pelvis on December 06, 2016. The above scans identifying the inflammatory changes along the body of the pancreas. New adenopathy is seen at the estella hepatis station with a lymph node measuring up to 23 mm (series 2, image 25). In addition, several borderline enlarged axillary lymph nodes measuring up to 10 mm on the right are identified. Blood transfusion history includes 2 units of packed red blood cells transfused on December 07, 2016 with antibody screen identifying a warm autoantibody. The patient's hemoglobin pretransfusion was 6.6 on (December 07, 2016), bumping up appropriately to 9.4 (December 08, 2016). ASSESSMENT AND PLAN: The patient is a very pleasant, 81-year-old male with an ECOG performance status of 2, borderline 3, with an underlying diagnosis of myelodysplastic syndrome (originally identified September 19, 2015). The patient presents subacutely with new submental and left forearm cutaneous lesions which on path are consistent with a preliminary read of myeloid sarcoma. Flow cytometry will be confirmatory and was requested on 12/10/2016. 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 Prognostic workup for his AML is currently underway with a repeat bone marrow biopsy scheduled for next week. Appropriate treatment options given his overall performance status, age and prognostic workup as above will be reviewed with the patient and the family at that time. The case was discussed with Dr. Moran today as well as Dr. Stephens in Pathology. Followup is scheduled for one week's time with bone marrow procedure. The patient otherwise had no further questions and for documentation purposes only approximately 60 minutes spent on today's visit, greater than 50% of that in [id number] counseling, evaluation, and coordination of care with the family, review of pathology with Dr. Stephens and review of medical records.
[2016-12-10 21:28] VITALS: BP 153/74; PULSE 90; RESP 16; O2SAT 97
--- NOTE | 2016-12-10 22:21 | NUR ---
Shaka paged HS hospitalist at the beginning of the shift, if she wants to do D/C Matt per progress note from yesterday to do void trial. MD called and state it's okay for tonight and will do it tomorrow during the day shift. Matt draining yumi urine via gravity. will continue to monitor and provide care.
[2016-12-11 02:30] VITALS: BP 146/72; PULSE 88; RESP 16; O2SAT 96
--- NOTE | 2016-12-11 05:54 | NUR ---
Activity pt has been resting quietly during this shift. denies Pain/Nausea. neck biopsy site dressing C/D/I. Pt didn't get OOB during this shift. Matt drained 375ml yumi in color concentrated urine. PO intake only 200ml. care continue.
[2016-12-11 06:16] VITALS: BP 152/77; PULSE 91; RESP 14; O2SAT 97
[2016-12-11 07:08] LABS: Mean Corpuscular Volume 91.4 fL (81-100)
[2016-12-11 07:21] LABS: Mean Corpuscular Hemoglobin 31.4 pg (27.0-35.0)
[2016-12-11] MEDS: Insulin Human REGular 300 Unit/3 mL Inj SUBQ SCH ×2 (07:30→12:34)
[2016-12-11 07:45] LABS: Magnesium 1.8 mg/dL (1.6-2.6)
[2016-12-11] MEDS: levoFLOXacin 750 mg Tablet PO SCH (08:54)
[2016-12-11] MEDS: Insulin GLARgine 100 Unit/mL Syringe SUBQ SCH (08:55)
[2016-12-11] MEDS ORDERED: Magnesium Hydroxide 10 mL Oral Concentration PO ONE (10:15)
[2016-12-11] MEDS ORDERED: Polyethylene Glycol (PEG) 17 Gm Powder PO PRN (10:15)
--- NOTE | 2016-12-11 11:07 | NUR ---
Social Work: Readiness for Discharge D: EMR reviewed. Pt is on day 5 of hospitalization. SW received T/C from pt's son Cruz (DPOA) regarding concerns for pt's discharge. Pt's son requested that pt go to SNF like [facility]. SW confirmed that pt has no documented medical needs for SNF and that pt would need to have a medical skillable need such as physical therapy, nursing, wound care, or IV medications. SW confirmed that pt doesn't have skillable nursing, wound, or IV medication needs at this time. SW confirmed with son that pt was up ambulating 300ft with PT on 12/09 and was cleared to home with no outpt, HH, or SNF needs by PT. Pt's son stated that PT needs to see pt again before the MD decides to discharge pt because pt's spouse can't care for pt. RN notes reflect that pt has been up ambulating in room independently and needed some assistance orienting to the the shower. SAMANTHA placed T/C to MD to relay conversation and concerns from pt's son. MD stated that he was next to PT and requested PT to see pt before discharge. Per MD in AM rounds, pt is medically stable and ready to discharge today. SW called pt's son and requested pt's son stay with pt and PT while PT works with pt. Pt's son agreed and stated PT had arrived to room. SW will follow-up with pt's son after PT has completed assessment and charts recommendations. A: Pt who is independent at baseline. P: PT to see pt and address sons concerns about discharging home. SW will follow-up with son and provide resources after PT has completed assessment. WILLY Finnegan
[2016-12-11 12:33] VITALS: BP 160/63; PULSE 86; RESP 16; O2SAT 98
[2016-12-11] MEDS ORDERED: TAMS0.4C98 PO (13:11)
[2016-12-11] MEDS ORDERED: SENN-133 PO (13:11)
[2016-12-11] MEDS ORDERED: LEVO750T9 PO (13:11)
[2016-12-11] MEDS ORDERED: DOCU-41 PO (13:11)
[2016-12-11] MEDS ORDERED: AMLO5TAB2 PO (13:11)
--- NOTE | 2016-12-11 13:18 | PCM.DIMED ---
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 - Prognostic workup for his AML is currently underway with a repeat bone marrow biopsy scheduled for next week. # Acute and severe symptomatic anemia. present on admission - Post transfusion of 2 units of packed red blood cells on 12/07/16. # Acute Enterococcus urinary tract infection (UTI). Present on admission # Suspected acute on chronic pancreatitis, clinically ruled out. # Acute urinary retention, post Matt catheter placement # Diabetes mellitus. Poorly controlled. Present on admission. -Recent HgA1C 9.6 # Acute diarrhea. Resolved. #Hypertension #Hyperlipidemia # Gastroesophageal reflux disease, Diet Discharge Diet: Low fat, Low Sodium, Heart Healthy, Diabetic Activity Discharge Activity: Home Health Phyical Therapy Call your provider Call your provider for: Fever or Chills, Shortness of breath, Bleeding, Chest pain, Excessive diarrhea Patient Instructions Patient Instructions Seek immediate medical attention if any new or worsening signs or symptoms occur. Follow-up plan 1. Followup with primary care provider in 3-7 days to further address the urinary retention and possible removal of the Matt catheter. 2. Followup with oncology (Dr. Rosen) in one week. Follow-up Provider: Enrique Macedo MD Provider: Kevin Rosen Masoud Dec 11, 2016 13:18 Michael Moran Dec 11, 2016 13:18
--- NOTE | 2016-12-11 15:47 | NUR ---
Social Work: Discharge D: EMR reviewed. Pt is on day 5 of hospitalization. SAMANTHA received MD order for PT 3x/week. SW met with pt and family and provided choice list. Family did not have preference for HH agency so SW chose [facility] based off [facility] Vendor Calendar. SAMANTHA placed referral call to Praveen at [facility] and confirmed pt will be discharging today. SAMANTHA provided access. SAMANTHA is working to locate MD to complete F2F and will fax to Praveen at [facility] once F2F is completed. RN and family updated and agreeable to plan. A: Pt for whom PT 3x/week has been deemed medically necessary. P: Pt to discharge home via POV with family. Pt to open with [facility] PT 3x/week. SW to fax F2F to [facility] once MD completes. WILLY Finnegan
--- NOTE | 2016-12-11 16:30 | NUR ---
Faxed face to face to [facility] per [employer]
--- NOTE | 2016-12-11 18:34 | PCM.DC.MED ---
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 - Prognostic workup for his AML is currently underway with a repeat bone marrow biopsy scheduled for next week. # Acute and severe symptomatic anemia. present on admission - Post transfusion of 2 units of packed red blood cells on 12/07/16. # Acute Enterococcus urinary tract infection (UTI). Present on admission # Suspected acute on chronic pancreatitis, clinically ruled out. # Acute urinary retention, post Matt catheter placement with subsequent hematuria # Diabetes mellitus. Poorly controlled. Present on admission. -Recent HgA1C 9.6 # Acute diarrhea. Resolved. #Hypertension #Hyperlipidemia # Gastroesophageal reflux disease, Consultations 1. Oncology (Dr. Rosen) Procedures XRay, CTs & MRIs PROCEDURE: CT ABDOMEN AND PELVIS WITH CONTRAST ([id number]) INDICATIONS: pancreatitis TECHNIQUE: After the administration of oral and intravenous contrast, 5 mm thick sections acquired from the diaphragms to the symphysis. 5 mm thick coronal and sagittal reformats were performed. For radiation dose reduction, the following was used : automated exposure control, adjustment of mA and/or kV according to patient size. COMPARISON: [facility], CT, CT CHEST W CON, 11/29/2016, 14:47. Abdomen pelvis CT from 01/23/2006 FINDINGS: Image quality: Excellent. ABDOMEN: Lung bases: 3 mm left lower lobe pulmonary nodule stable since at least 2005. Otherwise lung bases are clear. Heart size is normal. Prominent pericardial lymph nodes measuring up to 9 mm (se 2 im 15). Solid organs: Mildly contracted but otherwise radiographically normal gallbladder. Enlarged estella hepatis lymph nodes measuring up to 2.3 CM (for example se 2 im 25). Prostatic hypertrophy. Pancreatic calcifications consistent with previous pancreatitis. The pancreatic body is indistinct which may represent edema. No CT evidence of necrosis, hemorrhage, or pseudocyst. Marked prostatic hypertrophy. Please note CT cannot effectively identify or exclude primary prostate cancer. Prominent but otherwise normal spleen containing a tiny benign cyst. The adrenal glands are normal. Simple right renal cysts. Punctate nonobstructing left renal calculi. No hydronephrosis or ureterectasis.. Peritoneum and bowel: Mildly enlarged appendix. Overall the findings do not support acute appendicitis. Diverticulosis with no evidence of acute diverticulitis. Radiographically normal small bowel.. Nodes and vessels: No retroperitoneal or mesenteric adenopathy. Aorta and inferior vena cava are normal in caliber. Miscellaneous: No ventral hernias. PELVIS: Genitourinary: Possible nodular thickening along the posterior aspect of the bladder.. Miscellaneous: No inguinal hernias or adenopathy. Bones: No suspicious bony lesions. No vertebral body compression fractures. IMPRESSION: 1. Indistinct pancreas most consistent with minimal edema which can be seen in the setting of acute pancreatitis. There are calcifications representing the sequelae of chronic pancreatitis. 2. Lymphadenopathy in the estella hepatis and paracardial lymph nodes may be inflammatory related to the patient's possible pancreatitis. Lymphoma cannot be excluded. 3. Mildly enlarged appendix. Overall CT findings do not support acute appendicitis. If there is clinical concern for acute appendicitis recommend surgical consultation. 4. Prosthetic hypertrophy. Please note cannot effectively identify or exclude primary prostate cancer. 5. Nodularity in the posterior bladder wall may be related to enlarged prostate. Please correlate for any hematuria on urinalysis. Consider cystoscopy. Dictated by: Jackson Croft M.D. on 12/06/2016 at 20:03 Brief History As noted in H&P by Dr. Chew: 81 year old male with Diabetes mellitus type II, hypertension, hyperlipidemia, recent pancreatitis, and myelodysplastic syndrome p/w increasing weakness, lightheadedness. This is patient's four admission in this month, Early November, pt was admitted with acute on chronic pancreatitis, etiologies were unknown, no GB stone/no ETOH use noted. pt was supportively treated and d/radha. then Pt was admitted to [facility] on 11/20/16 for observation after presenting to the ED complaining of upper chest pain. He was discharged on 11/22/16. underwent stress test, which was normal. TTE was also unremarkable. During the course pt was diagnosed with enterococcus UTI, pt took Augmentin. Third admission was 11/27 -, admitted with non-infectious diarrhea, acute fatigue and weaknesss, symptoms were controlled with supportive tx, pt was discharged to home. During the admission, pt was found to have Left upper arm skin nodule and a submental mass, which was concerning for lymphoma, biopsy was done on 12/01. Since pt was discharged 3days ago, pt was increasingly weak, almost fainted, appetite was very poor, with intermittent nausea, denied vomiting or abdominal pain. also c/o mild labored breathing, but denied wt gain or leg swelling, chest pain, orthopnea. pt had mild dry cough three days ago but resolved with Mucinex. pt also noted his sugar goes up, increased his lantus from 18 to 20 and to 25 per PCP. but very difficult to control. In ED VS stable, initially [id number] then went up 180s, [id number], afebrile, RR16, 97% on RA. Labs showed worsening anemia, lymphocytosis, mildly elevated lipase, lactate1.1, UA was unremarkable. glc was 380 on cmp. Patient received regular insulin 10 units in the emergency room Hospital Course # Acute and severe symptomatic anemia. present on admission -generalized weakness, progressively worsening, worsening anemia probably due to new onset lymphoma, -Transfused 2 PRBCs 12/07. Patient had warm antibodies and blood bank had hard time getting him blood. -Dr Rosen from oncology was consulted. 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 -Prognostic workup for his AML is currently underway with a repeat bone marrow biopsy scheduled for next week. # Acute Enterococcus UTI. Present on admission -Started on Ampicillin IV. And changed to Levofloxacin prior to discharge # Possible acute on chronic pancreatitis, clinically ruled out. # Acute urinary retention -Had urinary retention >1L on 12/08/16 and Matt placed. Flomax started -Failed voiding trial on 12/11 -Matt cath was reinserted and noted to have hematuria likely due to traumatic Matt placement -Will be discharged home with home nursing and recommendation to followup with PCP in 2-3 days to ensure resolution or referral to urology as outpatient. # Diabetes mellitus. Poorly controlled. Present on admission. -Recent HgA1C 9.6 -Home insulin Lantus 18-20 units at bedtime. # Chronic anemia, thrombocytopenia, with MDS, POA, worsened from baseline -Plan as noted above # Acute diarrhea. Resolved and now with constipation. -C. difficile negative # Hypertension -Resumed lisinopril 12/08 # Hyperlipidemia. Stable. # Gastroesophageal reflux disease. Stable Exam Vital Signs (Last) Date Time Temp Pulse Resp B/P Pulse Ox O2 Delivery O2 Flow Rate FiO2 12/11/16 12:33 36.6 86 16 160/63 98 Room Air Exam General: Alert, Oriented X3, Cooperative, No Acute Distress Head: Normal Eyes: Scleral Anicteric Mouth: Mucous Membr Moist/[place] Neck: Supple Chest & Lungs: Chest Wall Normal, Clear to auscultation bilat Cardiovascular: Regular Rate/Rhythm Pulses: NL carotid, radial, femoral, DP, PT Abdomen: Non-tender, Non-distended, Normoactive bowel tones, Soft Extremities: No cyanosis/clubbing/edema bilat Neurological: Grossly Neurologically Intact, Normal Speech Test 12/06/16 14:12 12/06/16 14:22 12/06/16 15:11 12/07/16 06:05 Urine Color Yellow (YELLOW) Urine Appearance Clear (CLEAR,HAZY) Urine pH 6.0 (5.0-8.0) Urine Specific [place] 1.015 (1.003-1.035) Urine Protein 30mg/dL (NEG,TRACE) Urine Glucose (UA) 1000mg/dL (NEGATIVE) Urine Ketones 15mg/dL (NEGATIVE) Urine Occult Blood Negative (NEGATIVE) Urine Nitrite Negative (NEGATIVE) Urine Bilirubin Negative (NEGATIVE) Urine Urobilinogen Normalmg/dL (NORMAL) Urine Leukocyte Esterase Trace (NEGATIVE) Urine RBC 0-2/hpf (0-2) Urine WBC 11-50/hpf (0-5) Urine Epithelial Cells Occasional/hpf (NONE-MOD) Urine Crystals None seen (NONE SEEN) Urine Bacteria Few/hpf (NONE-FEW) Urine Hyaline Casts None/lpf (NONE) Urine Granular Casts None seen (NONE SEEN) Urine Waxy Casts None seen (NONE SEEN) Urine Red Blood Cell Casts None seen (NONE SEEN) Urine White Blood Cell Casts None seen (NONE SEEN) Urine Mucus None seen (None Seen) Urine Trichomonas None seen (NONE SEEN) Urine Yeast None (NONE SEEN) Urinalysis Comment None Urine Culture Reflexed Indicated Troponin T < 0.010ug/L (0.0-0.011) Pro-B-Type Natriuretic Peptide 1163pg/mL (0-486) Lactic Acid Level 1.1mmol/L (0.4-2.0) Hemoglobin A1c 10.1% (4.8-5.6) Test 12/08/16 08:52 12/08/16 10:00 12/10/16 06:48 12/11/16 06:48 Procalcitonin 0.18ng/mL (0.00-0.08) Uric Acid 4.8mg/dL (2.6-7.2) Phosphorus Level 2.5mg/dL (2.5-4.9) Neutrophils (%) (Auto) 48% (40-74) Lymphocytes (%) (Auto) 40% (14-46) Monocytes (%) (Auto) 6% (4-12) Eosinophils (%) (Auto) 0% (0-5) Basophils (%) (Auto) 0% (0-3) Band Neutrophils % 4% (1-5) Metamyelocytes % 1% (0-0) Myelocytes % 1% (0-0) Total Bilirubin 0.5mg/dL (0.0-1.2) Aspartate Amino Transf (AST/SGOT) 20U/L (0-50) Alanine Aminotransferase (ALT/SGPT) 22U/L (0-44) Alkaline Phosphatase 168U/L (25-160) Total Protein 5.0g/dL (6.4-8.4) Albumin 2.9g/dL (3.4-5.0) White Blood Count 7.4th/mm3 (3.8-10.1) Red Blood Count 2.80mil/mm3 (4.40-5.80) Hemoglobin 8.8g/dL (13.8-17.2) Hematocrit 25.6% (41.0-50.0) Mean Corpuscular Volume 91.4fL (81-100) Mean Corpuscular Hemoglobin 31.4pg (27.0-35.0) Mean Corpuscular Hemoglobin Concent 34.4% (32.0-37.0) Red Cell Distribution Width 15.6% (12.3-15.4) Platelet Count 42bil/L (150-400) Erythrocyte Sedimentation Rate 81mm/hr (0-30) Sodium Level 139mEq/L (134-144) Potassium Level 3.6mEq/L (3.5-5.2) Chloride Level 103mEq/L (97-108) Carbon Dioxide Level 19mmol/L (18-29) Blood Urea Nitrogen 21mg/dL (8-27) Creatinine 1.01mg/dL (0.76-1.27) Estimat Glomerular Filtration Rate 75mL/min (>59) Glucose Level 93mg/dL (60-99) Calcium Level 8.3mg/dL (8.5-10.1) Magnesium Level 1.8mg/dL (1.6-2.6) C-Reactive Protein 7.5mg/dL (0.0-0.5) Lipase 99U/L (13-60) Discharge Medications Discharge Medications Amlodipine (Amlodipine) 5 Mg Tablet 5 MG PO DAILY Prescribed by: MICHAEL DIOR MD Aspirin (Aspirin) 81 Mg Tablet 81 MG PO HS (Reported) Cyanocobalamin (Vitamin B12) 500 Mcg Tablet 1,000 MCG PO QAM (Reported) Insulin Glargine (Lantus U100 Insulin Vial) 100 Unit/Ml Vial 18-25 UNIT SUBQ HS (Reported) ALTERNATING 18 UNITS W/ 25 UNITS DUE TO HIGH BGS Levofloxacin (Levaquin) 750 Mg Tablet 750 MG PO DAILYAC Prescribed by: MICHAEL DIOR MD Lisinopril (Lisinopril) 40 Mg Tablet 40 MG PO QAM (Reported) Melatonin (Melatonin) 3 Mg Tablet 3 MG PO HS (Reported) Metformin (Glucophage) 1,000 Mg Tablet 1,000 MG PO BIDWM (Reported) Multivitamin (Multi Vitamin Daily) 1 Each Tablet 1 EACH PO QAM (Reported) Simvastatin (Zocor) 10 Mg Tablet 10 MG PO HS (Reported) Tamsulosin (Flomax) 0.4 Mg Capsule 0.4 MG PO DAILY Prescribed by: MICHAEL DIOR MD As needed Docusate Sodium (Colace) 100 Mg Capsule 100 MG PO BID PRN PRN For Constipation Prescribed by: MICHAEL DIOR MD Nitroglycerin SL (Nitrostat) 0.4 Mg Tab.subl 0.4 MG SL Q5MIN PRN PRN For Chest Pain Take one every 5 minutes for a maximum of 3 times for chest pain Prescribed by: HUSSEIN CLAIRE DO Sennosides (Senna) 8.6 Mg Tablet 8.6 MG PO BID PRN PRN For Constipation Prescribed by: MICHAEL DIOR MD Followup Plan Follow-up plan 1. Followup with primary care provider in 3-7 days to further address the urinary retention and possible removal of the Matt catheter. 2. Followup with oncology (Dr. Rosen) in one week. Discharge Diet: Low fat, Low Sodium, Heart Healthy, Diabetic Discharge Activity: Home Health Phyical Therapy Patient Instructions Seek immediate medical attention if any new or worsening signs or symptoms occur. Follow-up Provider: Enrique Macedo MD Provider: Kevin Rosen Masoud Dec 11, 2016 18:34
--- NOTE | 2016-12-11 19:36 | NUR ---
Discharge Pt d/c w/ family at 1715 via . Pt ended up d/c w/ duncan r/t retention and will f/u w/ pcp by the end of this week. Pt has a fantastic support system, spouse and family to assist w/ duncan care. Pt and spouse instructed on how to care for duncan leg bag and larger drain bag and how to change them and keep them clean. Substantial time taken to address all questions and reinforce teaching as needed regarding new medications and f/u plans. Pt was very comfortable w/ current plan and d/c w/ no questions or concerns.
--- NOTE | 2016-12-12 14:00 | NUR ---
Social Work- Late Note Data & Assessment: SAMANTHA received call 12/12 from Jackson Velasco regarding pt and expressing concern that a HH RN or PT had not been out to see pt. Jackson reports that pt is weak and has not had a BM. Jackson reports that pt's blood sugar is 100, which is appropriate. Jackson has concerns about pt and requested a HH RN come out to see pt. Jackson stated that she has no concerns about pt's duncan. CON[employer]IGHTS INTERN confirmed that pt's next PCP appointment is tomorrow at 3:40 pm. CONSUMER INSIGHTS INTERN confirmed that MD ordered HHPT instead of HHRN. T/C to Selma at [facility] regarding pt and requesting that a RN come out to evaluate pt prior to pt's first PT session, CON[employer]ER [employer]IGHTS INTERN believes that this pt is a priority. Selma spoke with [employer]ER INSIGHTS INTERN stating that it is likely an RN will be able to see pt later this afternoon/early evening. Mora will coordinate scheduling directly with pt's Minal. Return T/C to Jackson Velasco regarding HHRN, Jackson is very appreciative that CON[employer]ER [employer]IGHTS INTERN updated her and is thankful that Mora RN will be seeing pt today. SAMANTHA encouraged Minal and Jackson to speak at length with pt's PCP tomorrow, which Jackson is happy to do. No additional needs identified. Plan: Mora RN to see pt and evaluate needs this afternoon/evening. Mora will coordinate scheduling directly with pt's Minal. Pt and family will follow up with PCP tomorrow December 13. No additional concerns or needs identified at this time. Bridget Amos CON[employer]ER INSIGHTS INTERN
== END 2016-12-11 17:15 | disposition home health service (06) | DRG 841 ==
LOC: SED 13:50 → EDBD 13:50 → EDUNIT# 13:50 → MOC 18:01 → OBSVTOIN 18:01
PROVIDERS: ADMIT Internal Medicine; ATTEND Internal Medicine
PROC: 4A033R1 Measurement of Arterial Saturation, Peripheral, Percutaneous Approach (ICD-10-PCS; principal; 2016-12-06)
PROC: 30233N1 Transfusion of Nonautologous Red Blood Cells into Peripheral Vein, Percutaneous Approach (ICD-10-PCS; 2016-12-07)
DX: C92.Z0 Other myeloid leukemia not having achieved remission (principal); N39.0 Urinary tract infection, site not specified; D64.9 Anemia, unspecified; I10 Essential (primary) hypertension; I25.10 Atherosclerotic heart disease of native coronary artery without angina pectoris; M19.90 Unspecified osteoarthritis, unspecified site; E86.0 Dehydration; I49.3 Ventricular premature depolarization; R33.9 Retention of urine, unspecified; K21.9 Gastro-esophageal reflux disease without esophagitis; E11.65 Type 2 diabetes mellitus with hyperglycemia; D69.6 Thrombocytopenia, unspecified; B95.2 Enterococcus as the cause of diseases classified elsewhere; R62.7 Adult failure to thrive; E78.5 Hyperlipidemia, unspecified; Z79.82 Long term (current) use of aspirin; Z79.4 Long term (current) use of insulin; Z68.25 Body mass index [BMI] 25.0-25.9, adult

== ENCOUNTER 2016-12-15 14:47 | Emergency (ER) | payer MEDICARE, OTHER ==
[~2016-12-15] VITALS: Ht 177.8 cm; Wt 75.6 kg
[~2016-12-15 14:47] MED LIST changes: +AMLO5TAB2 PO; +DOCU-41 PO; +LEVO750T9 PO; -MELA1TAB11 PO; +MELA3TAB35 PO; +SENN-133 PO; +TAMS0.4C98 PO
[2016-12-15 14:50] VITALS: BP 112/72; PULSE 114; RESP 16; O2SAT 98
[2016-12-15] MEDS ORDERED: 0.9% Sodium Chloride 1,000 ML IV ONE ×2 (14:57→16:30)
--- NOTE | 2016-12-15 14:57 | ED.REPORT ---
HPI-General Illness Date of Service Dec 15, 2016 ED Provider: Adams Jacobs MD The patient is a 81 year old male with Diabetes mellitus type II, hypertension, hyperlipidemia, recent pancreatitis, myelodysplastic syndrome and recent leukemia diagnosis who presents to the ED due to dizziness since his recent discharge from the hospital . Associated symptoms include lightheadedness, constipation, and "feeling faint." Since his discharge from the hospital 4 days ago, whenever he stands up, he immediately feels dizzy and lightheaded, and needs to sit back down. He denies falling, hitting his head, LOC, chest pain, one sided weakness, bleeding, and black/tarry stools. Pt also has a UTI. He has noted that he has very dry tongue and he admits that he has not been drinking nearly enough water. Recently admitted to the hospital on 12/06/16 for 5 days for acute pancreatitis and chest pain workup which was negative mostly likely related to costochondritis. 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 Prognostic workup for his AML is currently underway with a repeat bone marrow biopsy scheduled on Saturday. Dr. Rosen is his oncologist. Nursing Notes Stated Complaint: DIZZY, SHORTNESS OF BREATH Chief Complaint: Neuro Symptoms/ Deficits Nursing Notes Reviewed: Yes Allergies: Coded Allergies: fentanyl (Verified Adverse Reaction, Intermediate, RESPIRATORY DEPRESSION , 12/15/16) Scheduled Amlodipine (Amlodipine) 5 Mg Tablet 5 MG PO DAILY Aspirin (Aspirin) 81 Mg Tablet 81 MG PO HS Cyanocobalamin (Vitamin B12) 500 Mcg Tablet 1,000 MCG PO QAM Insulin Glargine (Lantus U100 Insulin Vial) 100 Unit/Ml Vial 18-25 UNIT SUBQ HS ALTERNATING 18 UNITS W/ 25 UNITS DUE TO HIGH BGS Levofloxacin (Levaquin) 750 Mg Tablet 750 MG PO DAILYAC Lisinopril (Lisinopril) 40 Mg Tablet 40 MG PO QAM Melatonin (Melatonin) 3 Mg Tablet 3 MG PO HS Metformin (Glucophage) 1,000 Mg Tablet 1,000 MG PO BIDWM Multivitamin (Multi Vitamin Daily) 1 Each Tablet 1 EACH PO QAM Simvastatin (Zocor) 10 Mg Tablet 10 MG PO HS Tamsulosin (Flomax) 0.4 Mg Capsule 0.4 MG PO DAILY Scheduled PRN Docusate Sodium (Colace) 100 Mg Capsule 100 MG PO BID PRN PRN For Constipation Nitroglycerin SL (Nitrostat) 0.4 Mg Tab.subl 0.4 MG SL Q5MIN PRN PRN For Chest Pain Take one every 5 minutes for a maximum of 3 times for chest pain Sennosides (Senna) 8.6 Mg Tablet 8.6 MG PO BID PRN PRN For Constipation General Time Seen by MD: 14:56 Chief Complaint Dizziness Hx Obtained From: Patient, Spouse Arrived By: Walk-in Sudden in Onset?: Yes Onset Occurred: 4 days ago Symptom Duration: Since onset Recent Healthcare: Recent doctor visit, Recent hospitalization Similar Sx Previous: Yes Past Medical History Past Medical History Notes: Admitted November 27- for acute fatigue and weakness due to hypovolemia, myelodysplastic syndrome, and diarrhea Past Medical History AML Myelodysplastic syndrome Hypercholesterolemia Arthritis Pancreatitis (most recent flare for acute pancreatitis was November 16 through November 17, etiology unclear) h/o Enterococcuss UTI Reports: Coronary artery disease, Diabetes mellitus, Hypertension Past Surgical History Bilateral knee arthroscopy. Reports: Tonsillectomy Smoking History Former Smoker Social History Alcohol Use: 1-3 per day Other Social History: Good social support Ambulatory Status Independent Review of Systems Full Review of Systems Cardiovascular: Denies: Chest pain GI: Reports: Constipation, Denies: Bloody/tarry stool, Hematochezia Hematologic: Denies Bleeding Neurologic: Reports: Dizziness, Lightheaded, Denies: Change LOC, Weakness Complete sys rev & neg: except as marked. Physical Exam Vital Signs Vital Signs Date Time Temp Pulse Resp B/P Pulse Ox O2 Delivery O2 Flow Rate FiO2 12/15/16 18:59 37.5 100 20 147/62 98 Room Air 12/15/16 18:06 37.5 100 20 12/15/16 14:50 36.7 114 16 112/72 98 Room Air Initial VS: Reviewed General/Constitutional: Awake, Alert duncan catheter present darkish colored urine in collection bag Head / Eyes: Atraumatic, Normocephalic Mouth: Positive: Mucous membranes dry Respiratory / Chest: Atraumatic, Breath sounds NL, Breath sounds = bilat, No respiratory distress Cardiovascular: Heart rate NL, Regular rhythm, Heart sounds NL, No gallop, No murmurs, No rubs, Pulses = bilaterally good distal pulses Abdomen: Atraumatic, Soft, Non-tender, No guarding, No rebound, No distention Upper Extremities Upper Extremity / MS: Atraumatic, Inspection NL, No deformity Lower Extremity / Pelvis / MS: Atraumatic, Inspection NL, No deformity Neurologic: Oriented X3, Speech NL, No motor deficits negative pronator drift testing strength on all 4 extremities Interpretation & Diagnostics Lab Results Interpretation Result Diagram: 12/15/16 1510 12/15/16 1510 Test 12/15/16 15:10 White Blood Count 13.6th/mm3 (3.8-10.1) Red Blood Count 2.79mil/mm3 (4.40-5.80) Hemoglobin 8.8g/dL (13.8-17.2) Hematocrit 26.3% (41.0-50.0) Mean Corpuscular Volume 94.3fL (81-100) Mean Corpuscular Hemoglobin 31.5pg (27.0-35.0) Mean Corpuscular Hemoglobin Concent 33.5% (32.0-37.0) Red Cell Distribution Width 15.4% (12.3-15.4) Platelet Count 28bil/L (150-400) Neutrophils (%) (Auto) 38% (40-74) Lymphocytes (%) (Auto) 58% (14-46) Monocytes (%) (Auto) 4% (4-12) Eosinophils (%) (Auto) 0% (0-5) Basophils (%) (Auto) 0% (0-3) Prothrombin Time 10.6sec (8.1-12.5) Prothromb Time International Ratio 0.99ratio Sodium Level 135mEq/L (134-144) Potassium Level 3.9mEq/L (3.5-5.2) Chloride Level 99mEq/L (97-108) Carbon Dioxide Level 19mmol/L (18-29) Blood Urea Nitrogen 26mg/dL (8-27) Creatinine 1.32mg/dL (0.76-1.27) Estimat Glomerular Filtration Rate 55mL/min (>59) Glucose Level 189mg/dL (60-99) Calcium Level 8.9mg/dL (8.5-10.1) Magnesium Level 1.7mg/dL (1.6-2.6) Total Bilirubin 0.4mg/dL (0.0-1.2) Aspartate Amino Transf (AST/SGOT) 42U/L (0-50) Alanine Aminotransferase (ALT/SGPT) 46U/L (0-44) Alkaline Phosphatase 285U/L (25-160) Total Protein 6.0g/dL (6.4-8.4) Albumin 3.2g/dL (3.4-5.0) Re-Eval/Medical Decision Med Decision/Clinical Course The patient is a 81 year old male with Diabetes mellitus type II, hypertension, hyperlipidemia, recent pancreatitis, myelodysplastic syndrome and recent leukemia diagnosis who presents to the ED due to dizziness since his recent discharge from the hospital . Associated symptoms include lightheadedness, constipation, and "feeling faint." Since his discharge from the hospital 4 days ago, whenever he stands up, he immediately feels dizzy and lightheaded, and needs to sit back down. He denies falling, hitting his head, LOC, chest pain, one sided weakness, bleeding, and black/tarry stools. Pt also has a UTI. He has noted that he has very dry tongue and he admits that he has not been drinking nearly enough water. Recently admitted to the hospital on 12/06/16 for 5 days for acute pancreatitis and chest pain workup which was negative mostly likely related to costochondritis. 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 Prognostic workup for his AML is currently underway with a repeat bone marrow biopsy scheduled on Saturday. Dr. Rosen is his oncologist. Here in the emergency department the patient is afebrile and hemodynamically stable. He appears dehydrated and has positive orthostatic vital signs. He reports dramatic improvement in his symptoms after receiving IV fluids. Laboratory studies notable as below: Leukocytes: 13.6 increased from prior Hematocrit 236.3 Platelet: 8 down from prior BUN: 26 Creatinine: 1.32 slightly increased from baseline No sig electrolyte abnormalities 1510: Plan for IV fluids and Zofran 1620: Patient no longer feels lightheaded upon standing up after receiving 1L of saline. Family reports positive orthostatic vital signs from home nurse. Plan for more IV fluids. 1644: Consultation with Dr. Mast, oncology, recommends to give the pt one unit of platelets and he will see the patient next week. 1645: Plan for unit of platelets and another liter of fluids. At this time, I see no evidence of loss. Patient is hemodynamically stable. His platelets are very low there is no evidence of active bleeding. Patient discussed with his oncologist and felt appropriate for discharge. He has complete resolution of his symptoms after receiving IV fluids. Notably, the patient has an indwelling Duncan catheter that he just completed a course of antibiotics. He has no fever and while his white blood cell count is somewhat elevated my suspicion for acute infectious process at this time is relatively low. I do not feel that another course of antibiotics are immediately indicated. He has close follow-up next week and we feel that he is appropriate for discharge. Prior to discharge follow-up and return precautions were reviewed in detail with the patient who verbalized understanding and agreement with the plan. The patient was discharged in stable condition. Time of Eval: 17:16 Re-Evaluation/Progress Note: Pt rechecked. Labs look good, except for slightly low platelets. Consultation : Referral / Consult Name: Rickie Mckeon MD Call Returned at: 16:43 Note: Dr. Mast, oncology, recommends we give the pt one unit of platelets and he will see the patient next week. Counseled Regarding: Diagnosis, Lab results, Need for follow-up, When/why to return to ED Discharge & Departure Primary Impression: Orthostatic hypotension Additional Impressions: Dehydration Leukocytosis Leukocytosis type: unspecified Qualified Code: D72.829 - Elevated white blood cell count, unspecified Other secondary thrombocytopenia AML (acute myeloblastic leukemia) Leukemia Active/Remission status: without remission Qualified Code: C92.00 - Acute myeloblastic leukemia, not having achieved remission Disposition: Home Discharge Condition All VS Reviewed: Yes Condition: Stable Additional Instructions: Thank you for seeking care at the emergency room. It is difficult for us to make definitive diagnoses in the ED but we believe that you are experiencing dehydration. Our primary goal today in the ED was to evaluate you for any life-threatening conditions. Your evaluation was reassuring. You were treated with IV fluids. Your platelets were very low. We discussed this with your oncologist and you were given 1 unit of platelets.. You should follow-up with Dr. Rosen early in the coming week week. Please call first thing on Saturday to make sure that you have an appointment. You should return to the ED immediately if you develop bloody stools, black tarry stools, bleeding, lightheadedness, fevers, vomiting, cough, shortness of breath, chest pain, lightheadedness, weakness or any other concerning signs or symptoms. Thank you for letting us partake in your care today. Referrals: Enrique Macedo MD (PCP) Crit Care Except Billable Proc Time Spent: 105-134 minutes Services Performed: Patient management by me, Time spent at bedside, Reviewing test results, Reviewing imaging, Discussing patient care, Documentation in record, Time with fam/surrogate Scribe Attestation Portion of this note were transcribed by Valeri Rey. I, Dr. Jacobs, personally performed the history, physical exam, and medical decision-making: I reviewed and confirmed the accuracy for the information in the transcribed note. Signed by: chito Alba, 12/15/16 1800 copies to: Enrique Macedo MD, Beck O MD Dec 15, 2016 14:57 Valeri Rey Dec 15, 2016 15:04
[2016-12-15 15:48] LABS: INR 0.99 ratio
[2016-12-15 15:53] LABS: Mean Corpuscular Hemoglobin 31.5 pg (27.0-35.0); Mean Corpuscular Volume 94.3 fL (81-100)
[2016-12-15 15:54] LABS: Platelet Count 28 bil/L (150-400)
[2016-12-15 15:55] LABS: BASOPHILS % (AUTO) 0 % (0-3); EOSINOPHILS % (AUTO) 0 % (0-5); MONOCYTES % (AUTO) 4 % (4-12); Magnesium 1.7 mg/dL (1.6-2.6); NEUTROPHILS % (AUTO) 38 % (40-74)
[2016-12-15] MEDS ORDERED: 0.9% Sodium Chloride 250 ML IV STA (16:43)
[2016-12-15 18:06] VITALS: BP 147/62; PULSE 100; RESP 20
[2016-12-15 18:59] VITALS: BP 147/62; PULSE 100; RESP 20; O2SAT 98
== END 2016-12-15 18:50 | disposition home or self-care (01) ==
LOC: SED 14:47
DX: I95.1 Orthostatic hypotension (principal); E86.0 Dehydration; D72.829 Elevated white blood cell count, unspecified; D69.59 Other secondary thrombocytopenia; C92.00 Acute myeloblastic leukemia, not having achieved remission; I10 Essential (primary) hypertension; I25.10 Atherosclerotic heart disease of native coronary artery without angina pectoris; E11.9 Type 2 diabetes mellitus without complications; Z87.891 Personal history of nicotine dependence; Z79.82 Long term (current) use of aspirin; Z79.84 Long term (current) use of oral hypoglycemic drugs; Z79.4 Long term (current) use of insulin; Z79.899 Other long term (current) drug therapy; Z88.8 Allergy status to other drugs, medicaments and biological substances; E78.5 Hyperlipidemia, unspecified
CPT/HCPCS: 36415; 36430; 80053; 83735; 85025; 85610; 96360; 96361; 99291; 99292; G0463; J7030; J7050; P9019

== ENCOUNTER 2016-12-17 07:09 | Inpatient (IN) | payer MEDICARE, OTHER ==
[~2016-12-17] VITALS: Ht 177.8 cm; Wt 81.3 kg
[2016-12-17] VITALS (7 sets, daily range): BP systolic 114–155; BP diastolic 55–85; PULSE 64–102; RESP 14–23; O2SAT 92–96
--- NOTE | 2016-12-17 07:19 | ED.REPORT ---
HPI-General Illness Date of Service Dec 17, 2016 ED Provider: Adams Jacobs MD 81-year-old male with a past medical history of arthritis, pancreatitis, BPH, and a recent diagnosis of AML, presents today with excessive back pain. The patient was scheduled for a confirmatory bone marrow biopsy this morning, however was unable to attend this appointment due to increasing back pain. Patient has been in the hospital multiple times in the last 2-3 months. Previous admissions have been for loss of blood for which she was given blood transfusions as well as platelet transfusions. The patient was admitted was 2 weeks ago and stayed in the hospital for a full week. During his stay he was treated for a UTI using Levaquin, and a urinary catheter was placed at that time. Upon discharge from the hospital he was found to have urinary retention was sent home on urinary catheter. Discharge date was 12/11 and the catheter has not been replaced since that time. This morning he complains of low back pain 10/10 does not radiate. Patient was given 5 mg of oxycodone this morning and this did not alleviate his pain. He is not able to pinpoint anything that makes his pain better or worse. Family states at this level of pain is not typical for him. They state that he has had a herniated disc diagnosed many years ago and this is the last time they had seen him in that much pain. Nursing Notes Stated Complaint: BACK PAIN Allergies: Coded Allergies: fentanyl (Verified Adverse Reaction, Intermediate, RESPIRATORY DEPRESSION , 12/17/16) Scheduled Amlodipine (Amlodipine) 5 Mg Tablet 5 MG PO DAILY Aspirin (Aspirin) 81 Mg Tablet 81 MG PO HS Cyanocobalamin (Vitamin B12) 500 Mcg Tablet 1,000 MCG PO QAM Insulin Glargine (Lantus U100 Insulin Vial) 100 Unit/Ml Vial 18-25 UNIT SUBQ HS ALTERNATING 18 UNITS W/ 25 UNITS DUE TO HIGH BGS Levofloxacin (Levaquin) 750 Mg Tablet 750 MG PO DAILYAC Lisinopril (Lisinopril) 40 Mg Tablet 40 MG PO QAM Melatonin (Melatonin) 3 Mg Tablet 3 MG PO HS Metformin (Glucophage) 1,000 Mg Tablet 1,000 MG PO BIDWM Multivitamin (Multi Vitamin Daily) 1 Each Tablet 1 EACH PO QAM Simvastatin (Zocor) 10 Mg Tablet 10 MG PO HS Tamsulosin (Flomax) 0.4 Mg Capsule 0.4 MG PO DAILY Scheduled PRN Docusate Sodium (Colace) 100 Mg Capsule 100 MG PO BID PRN PRN For Constipation Nitroglycerin SL (Nitrostat) 0.4 Mg Tab.subl 0.4 MG SL Q5MIN PRN PRN For Chest Pain Take one every 5 minutes for a maximum of 3 times for chest pain Sennosides (Senna) 8.6 Mg Tablet 8.6 MG PO BID PRN PRN For Constipation General Time Seen by MD: 07:19 Chief Complaint Back pain Hx Obtained From: Patient Sudden in Onset?: Yes Onset Occurred: 1 - 4 hours ago Symptom Duration: Since onset Severity: Current: Pain level 10 out of 10 Severity: Maximum: Pain level 10 out of 10 Recent Healthcare: Recent hospitalization Past Medical History Past Medical History Notes: Admitted November 27- for acute fatigue and weakness due to hypovolemia, myelodysplastic syndrome, and diarrhea Past Medical History AML Myelodysplastic syndrome Hypercholesterolemia Arthritis Pancreatitis (most recent flare for acute pancreatitis was November 16 through November 17, etiology unclear) h/o Enterococcuss UTI Reports: Coronary artery disease, Diabetes mellitus, Hypertension Past Surgical History Bilateral knee arthroscopy. Reports: Tonsillectomy Smoking History Former Smoker Social History Alcohol Use: 1-3 per day Drug Use: Denies drug use Other Social History: Good social support Ambulatory Status Independent Review of Systems Full Review of Systems Constitutional: Denies: Chills, Fever Respiratory: Denies: Shortness of breath, Wheezing Cardiovascular: Denies: Chest pain Musculoskeletal: Reports: Back pain, Lumbar pain, Denies: Extremity pain, Extremity swelling Complete sys rev & neg: except as marked. Physical Exam Vital Signs Vital Signs Date Time Temp Pulse Resp B/P Pulse Ox O2 Delivery O2 Flow Rate FiO2 12/17/16 11:02 36.8 95 14 140/62 96 Room Air 12/17/16 10:55 95 14 140/62 96 Room Air 12/17/16 09:43 102 14 129/55 93 Room Air 12/17/16 08:20 100 23 114/83 95 12/17/16 07:20 36.8 64 16 119/65 95 Room Air Initial VS: Reviewed General/Constitutional: Well-developed, Well-nourished Head / Eyes: Atraumatic, Normocephalic, PERRL ENT: Mucous membranes moist, Conjunctiva normal, No scleral icterus Neck: Supple, Non-tender, Full range of motion Respiratory: Breath sounds normal, Clear to auscultation, No respiratory distress Cardiovascular: Regular rate & rhythm, Heart sounds normal, Intact distal pulses Abdomen / GI: Soft, Non-tender, No guarding, No rebound, No distention Back: No CVA tenderness Skin: Warm, Dry, No cyanosis Neurologic: Alert, Oriented, Nonfocal Psychiatric: Mood/affect normal, Behavior normal, Normal thought content General/Constitutional: Awake, Alert Distress / Hydration: Positive: Distress moderate Appearance / Presentation: Positive: In pain, Negative: Apparent trauma/injury, Toxic appearing Interpretation & Diagnostics Lab Results Interpretation Result Diagram: 12/17/16 0803 12/17/16 0803 Test 12/17/16 08:03 12/17/16 08:27 12/17/16 09:44 White Blood Count 17.9th/mm3 (3.8-10.1) Red Blood Count 2.74mil/mm3 (4.40-5.80) Hemoglobin 8.6g/dL (13.8-17.2) Hematocrit 25.7% (41.0-50.0) Mean Corpuscular Volume 93.8fL (81-100) Mean Corpuscular Hemoglobin 31.4pg (27.0-35.0) Mean Corpuscular Hemoglobin Concent 33.5% (32.0-37.0) Red Cell Distribution Width 15.3% (12.3-15.4) Platelet Count 40bil/L (150-400) Sodium Level 138mEq/L (134-144) Potassium Level 4.1mEq/L (3.5-5.2) Chloride Level 103mEq/L (97-108) Carbon Dioxide Level 18mmol/L (18-29) Blood Urea Nitrogen 18mg/dL (8-27) Creatinine 1.20mg/dL (0.76-1.27) Estimat Glomerular Filtration Rate 61mL/min (>59) Glucose Level 119mg/dL (60-99) Calcium Level 8.9mg/dL (8.5-10.1) Magnesium Level 1.7mg/dL (1.6-2.6) Total Bilirubin 0.5mg/dL (0.0-1.2) Aspartate Amino Transf (AST/SGOT) 73U/L (0-50) Alanine Aminotransferase (ALT/SGPT) 75U/L (0-44) Alkaline Phosphatase 433U/L (25-160) Total Protein 6.2g/dL (6.4-8.4) Albumin 3.2g/dL (3.4-5.0) Lipase 31U/L (13-60) Lactic Acid Level 3.2mmol/L (0.4-2.0) Urine Color Yellow (YELLOW) Urine Appearance Clear (CLEAR,HAZY) Urine pH 5.5 (5.0-8.0) Urine Specific [place] 1.005 (1.003-1.035) Urine Protein Tracemg/dL (NEG,TRACE) Urine Glucose (UA) Negativemg/dL (NEGATIVE) Urine Ketones Negativemg/dL (NEGATIVE) Urine Occult Blood Small (NEGATIVE) Urine Nitrite Negative (NEGATIVE) Urine Bilirubin Negative (NEGATIVE) Urine Urobilinogen Normalmg/dL (NORMAL) Urine Leukocyte Esterase Negative (NEGATIVE) Urine RBC 3-10/hpf (0-2) Urine WBC 0-5/hpf (0-5) Urine Epithelial Cells Occasional/hpf (NONE-MOD) Urine Crystals None seen (NONE SEEN) Urine Bacteria Few/hpf (NONE-FEW) Urine Hyaline Casts >20/lpf (NONE) Urine Granular Casts None seen (NONE SEEN) Urine Waxy Casts None seen (NONE SEEN) Urine Red Blood Cell Casts None seen (NONE SEEN) Urine White Blood Cell Casts None seen (NONE SEEN) Urine Mucus Present (None Seen) Urine Trichomonas None seen (NONE SEEN) Urine Yeast None (NONE SEEN) Urinalysis Comment None Urine Culture Reflexed Not indicated Re-Eval/Medical Decision Med Decision/Clinical Course Patient was given 0.5 Dilaudid for pain, this was able to alleviate the majority of his pain. Oncology was consulted and discussed family various options from this point. It was decided to continue with imaging as this may change the course of management for this patient if there is some other way that we can assess his back pain. However, the patient is not a candidate for chemotherapy this time due to disease process. In consult with oncology is advised that the patient be admitted to the hospital for a time for pain management. Ultimately the patient will need to be discharged to hospice care for further pain management as an outpatient. Patient was consulted regarding the results of the CT scan. Counseled Regarding: Diagnosis, Lab results, Need for admission Discharge & Departure Primary Impression: AML (acute myeloblastic leukemia) Leukemia Active/Remission status: without remission Qualified Code: C92.00 - Acute myeloblastic leukemia, not having achieved remission Additional Impressions: Low back pain Chronicity: acute Back pain laterality: unspecified Sciatica presence: unspecified whether sciatica present Qualified Code: M54.5 - Low back pain Chronic indwelling Matt catheter Dehydration Disposition: ADMITTED TO HOSPITAL Discharge Condition All VS Reviewed: Yes Condition: Stable Referrals: Enrique Macedo MD (PCP) EDSupervising Provider for APC: Adams Jacobs MD Attending Statement Attending attestation: I saw this patient in conjunction with the above named resident. I was present for all greenberg portions of the history taking and physical examination. I agree with the workup, evaluation, treatment and disposition. In summary, this is an 81-year-old male with recently diagnosed acute myeloid leukemia. Patient presents to the emergency department with dehydration and low back pain. CT scan was obtained and demonstrated extensive lymph nodes throughout the abdomen and findings suggestive of possible pancreatitis versus nonspecific pancreatic inflammation. His lipase is not elevated. Patient was seen and evaluated by his oncologist Dr. Rosen. Per my conversation with his oncologist is felt that the patient likely requires transition towards hospice care and patient and family are in agreement with this. The patient required multiple doses of IV pain medications and was admitted for pain management and hospice consultation. He was transferred in stable condition. Adams Vasquez MD, MD Dec 17, 2016 07:19 Matthew Mendes DO Dec 17, 2016 08:27
[2016-12-17] MEDS ORDERED: Iohexol 300 mg/mL 30 mL Inj PO ONE (07:40)
[2016-12-17] MEDS ORDERED: HYDROmorphone 0.5 mg/0.5 mL iSecure Syringe IVPUSH ONE ×4 (07:40→10:35)
[2016-12-17] MEDS ORDERED: Ondansetron 2 mg/mL 2 mL Inj IVPUSH ONE (08:00)
[2016-12-17 08:19] LABS: Mean Corpuscular Hemoglobin 31.4 pg (27.0-35.0); Mean Corpuscular Volume 93.8 fL (81-100)
[2016-12-17] MEDS: 0.9% Sodium Chloride 1,000 ML IV SCH ×4 (08:21→21:47)
[2016-12-17 08:39] LABS: Magnesium 1.7 mg/dL (1.6-2.6)
[2016-12-17] MEDS ORDERED: Alum-Mag Hydrox-Simeth 30 mL Suspension PO PRN (09:35)
--- NOTE | 2016-12-17 10:06 | DRSVH ---
PROCEDURE: CT ABDOMEN AND PELVIS WITH CONTRAST ([id number]) INDICATIONS: low back pain TECHNIQUE: After the administration of intravenous contrast, 5 mm thick sections acquired from the diaphragm to the symphysis. 5 mm coronal and sagittal reformats were acquired. For radiation dose reduction, the following was used: automated exposure control, adjustment of mA and/or kV according to patient siz e. COMPARISON: [facility], CT, CT ABD PELVIS W CON, 12/06/2016, 19:54. FINDINGS: Image quality: Excellent. ABDOMEN: Lung bases: There are bilateral pleural effusions, small on the left and minimal on the right, with associated mild dependent atelectasis. Heart size is normal. Solid organs: No focal hepatic lesions identified. There is mild periportal edema is nonspecific. The spleen is mildly enlarged, measuring up to 14.5 cm. The gallbladder demonstrates mild gallbladde r wall thickening and enhancement. Biliary system is non dilated. There are a few punctate calcific ations redemonstrated in the pancreas consistent with sequelae of chronic pancreatitis. In addition, there is slightly increased peripancreatic fat stranding and a small amount of peripancreatic fluid along the pancreatic tail. Findings are suggestive of acute pancreatitis. No adrenal nodules. The kidneys demonstrate no hydronephrosis. There is a punctate nonobstructing stone in the lower pole of the left kidney. A small cyst is noted in the lower pole of the right kidney. Peritoneum and bowel: Bowel loops demonstrate normal wall thickness and caliber. There is colonic d iverticulosis without acute diverticulitis. There is a small amount of intraperitoneal free fluid in cluding a small collection adjacent to the tail the pancreas, minimal amount along the spleen, and a small amount in the pelvis. Nodes and vessels: There are multiple enlarged peripancreatic and estella hepatis lymph nodes which hav e increased in size compared to the prior study. A sales representative jewelry node adjacent to the head of the p ancreas measures up to 2.4 cm in short axis compared to 2.1 cm previously. An aortocaval node measur es up to 2.6 cm compared to 1.8 cm previously. There is also interval increase in size of mildly pro minent paraesophageal lymph nodes, celiac axis nodes, and retroperitoneal nodes in the abdomen and pe lvis. Aorta and inferior vena cava are normal in size. Miscellaneous: No ventral hernias. PELVIS: Genitourinary: There is a Matt catheter within a partially distended urinary bladder. There is slig htly hyperdense fluid within the bladder. The prostate again demonstrates heterogeneous enlargement. Miscellaneous: No inguinal hernias or adenopathy. Bones: No suspicious bony lesions. No vertebral body compression fractures. IMPRESSION: 1. Progression of lymphadenopathy in the abdomen and pelvis including large estella hepatis and peripa ncreatic lymph nodes. Findings are compatible with patient's recent diagnosis of AML. 2. Slightly increased peripancreatic fat stranding and fluid suggesting acute pancreatitis. Recomme nd correlation with laboratory values. 3. Small pleural effusions. 4. Partially distended urinary bladder with a Matt catheter in place. Hyperdense fluid is demonstr ated within the bladder which may reflect blood product. Recommend correlation with urinalysis. Findings discussed with Dr. Jacobs on 12/17/16 at 9:55 AM. Dictated by: Junior Christy M.D. on 12/17/2016 at 9:51 Approved by: Junior Christy M.D. on 12/17/2016 at 10:05
[2016-12-17] MEDS ORDERED: HYDROmorphone 0.5 mg/0.5 mL iSecure Syringe IVPUSH SCH ×3 (10:25→16:30)
--- NOTE | 2016-12-17 10:25 | PROG NOTE ---
[address] [address] PROGRESS NOTE PATIENT: GIO ZARATE : 1935 MR#: [id number] ADMIT: 12/17/2016 JOB ID: [id number] DATE: 12/17/2016 SUBJECTIVE: The patient is being seen today in the emergency department. The patient was scheduled for a bone marrow biopsy in the outpatient clinic. The patient presented with an acute onset of lower back pain, presenting around one or two in the morning. The patient was not aware of any antecedent events that may have strained his back. In fact, unfortunately since his discharge from the hospital on December 11, 2016, he has been mostly bed-bound. The pain was described as sharp, radiating down the left leg. Scale of 10/10. Since being in the hospital, this pain is a little more manageable, down to 7/10. Clinically, the patient has been significantly fatigued and declining. Discharge from the hospital on December 11, 2016, to home. The patient's family and , who is his primary caregiver, states that he spends most, if not all of his day time in bed. He is able to sit up for a brief period of time before he gets dizzy. He is unable to do his activities of daily living. The patient is not aware of any fevers, chills or night sweats. His has identified another skin lesion along the upper back. PAST MEDICAL HISTORY: Significant for: 1. AML, WHO subtype myeloid sarcoma. Diagnosis confirmed from incisional biopsy of subcutaneous lesions taken from the left submental and forearm on December 02, 2016, with pathology consistent with myeloid sarcoma. 2. Myelodysplastic syndrome, refractory cytopenia with unilateral dysplasia. IPS score 1.5, with a standard IPS score 0.5. The patient had a normal MDS FISH panel. 3. Pancreatitis identified on blood work dated November 16, 2006, with a lipase elevated at 875. November 21, 2016, CT of the abdomen and pelvis showing inflammatory changes along the body of the pancreas. The patient treated symptomatically. 4. Diabetes. 5. Hypertension. 6. Hypercholesterolemia. PHYSICAL EXAMINATION: Vital signs today showing a weight of 76 kg, blood pressure 114/83, pulse is 100, respiratory rate is 23, and he is saturating at 95% on room air. He is A and O x3. Lying in bed. Evaluation of the back shows a 1 cm, oval, raised, erythematous lesion that is nonpainful. It does not rebecca. LABORATORY DATA: From December 17, 2016, showing a white cell count of 17.9, hemoglobin of 8.6, and a platelet count of 40. Sodium 138, potassium 4.3, serum creatinine 1.2, lactic acid 3.2, calcium 8.9, magnesium 1.7. AST 73, ALT 75, alk phos 433. Lipase down to 31. 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 The patient is showing acute and rapid decline with elevated white cell count and thrombocytopenia which is a dramatic change from just one month ago where his MDS was stable requiring no transfusion support over the past year. Treatment options and benefits were discussed with the family. Specifically, the patient's AML treatments included hypomethylating agents such as azacitidine. Benefits would be improvement in overall survival from 3-6 months. Precluding the patient's treatment, however, is his performance status and his ELN prognostic workup. The patient's performance status is currently 4, with a Karnofsky performance status of 40%. His performance status, therefore, precludes his ability to tolerate and benefit from low-dose AML therapies. Therefore, it was recommend that the patient move into hospice services. The , son and daughter as well as the patient were all in agreement. The case was discussed with the attending. Hospice consult should be made today and likely the patient will be admitted for comfort measures with transition to home with hospice support. Follow up in our clinic will be on a p.r.n. basis.
[2016-12-17 10:30] LABS: APPEARANCE,URINE CLEAR (CLEAR,HAZY); COLOR,URINE YELLOW (YELLOW); OCCULT BLOOD,URINE SMALL (NEGATIVE); PH,URINE 5.5 (5.0-8.0); UROBILINOGEN,URINE NORMAL (NORMAL)
[2016-12-17] MEDS: Ondansetron 2 mg/mL 2 mL Inj IVPUSH PRN ×3 (11:09→17:27)
[2016-12-17] MEDS ORDERED: Polyethylene Glycol (PEG) 17 Gm Powder PO PRN (11:55)
[2016-12-17] MEDS ORDERED: Heparin 5,000 Unit/mL Inj SUBQ SCH (12:16)
[2016-12-17] MEDS ORDERED: MetoCLOpramide 5 mg/mL 2 mL Inj IVPUSH PRN (14:25)
[2016-12-17] MEDS: HYDROmorphone 1 mg/mL Inj IVPUSH PRN ×3 (15:27→23:54)
--- NOTE | 2016-12-17 16:08 | PCM.HPMED ---
Subjective Date of Service Dec 17, 2016 Primary Provider: Admitting Physician: Daniel Betts MD Primary Care Physician: Enrique Macedo MD Attending Physician: Daniel Betts MD Admit Status: From the Emergency Department History of Present Illness: 81-year-old male with a past medical history of arthritis, pancreatitis, BPH, and a recent diagnosis of AML, presents today with excessive back pain. The patient was scheduled for a confirmatory bone marrow biopsy this morning, however was unable to attend this appointment due to increasing back pain. Patient has been in the hospital multiple times in the last 2-3 months. Previous admissions have been for loss of blood for which he was given blood transfusions as well as platelet transfusions. The patient was admitted was 2 weeks ago and stayed in the hospital for a full week. During his stay he was treated for a UTI using Levaquin, and a urinary catheter was placed at that time. Upon discharge from the hospital he was found to have urinary retention was sent home on urinary catheter. Discharge date was 12/11 and the catheter has not been replaced since that time. This morning he complains of low back pain 10/10 does not radiate. Patient was given 5 mg of oxycodone this morning and this did not alleviate his pain. He is not able to pinpoint anything that makes his pain better or worse. Family states at this level of pain is not typical for him. They state that he has had a herniated disc diagnosed many years ago and this is the last time they had seen him in that much pain. He is being admitted for pain control, management, and possible hospice. Allergies Coded Allergies: fentanyl (Verified Adverse Reaction, Intermediate, RESPIRATORY DEPRESSION , 12/17/16) Constitutional: : Chills Eyes: Denies: Blurred Vision, Conjunctive Inflammation, Double Vision, Eyelid Inflammation, Other, Pain, Pigmentosa, Redness, Retinitis, Vision Changes Cardiovascular: Denies: Chest Pain, Edema, Lt Headedness, Orthopnea, Other, Palpitations, Paroxysmal Noc. Dyspnea Respiratory: Denies: Cough, Hemoptysis, Other, Pleuritic Chest Pain, SOB with Exertion, Shortness of Breath, Sputum, Wheezing Gastrointestinal: Reports: Abdominal Pain, Nausea, Vomiting, Denies: Change in Appetite, Constipation, Diarrhea, Heartburn, Hematochezia, Melena, Other, Use of Laxatives Musculoskeletal: Reports: Back Pain, Deformity, Limitation of Function, Neck Pain, Other, Shoulder Pain, Swelling Skin: Denies: Bruising, Dry or Flakiness, Jaundice, Lesions, Other, Rash, Scars , Ulcers Neurological: Denies: Change in Speech, Confusion, Dizziness, Dyskinesia, Hyper Reflexia, Incoordination, Numbness, Other, Seizures, Somnolence, Tremors, Weakness Psychologic: Denies: Agitation, Disorientation, Excitation, Giddiness, Hostile , Insomnia, Instability, Marisol, Nervousness, Night Terrors, Other, Perseveration , Phobia, Sexual Disturbances PMH PMH PMH Diabetes mellitus type II on metformin and insulin Hypertension Hyperlipidemia Pancreatitis Myelodysplastic syndrome not taking any treatment and stable Gastroesophageal reflux disease Prostate enlargement . Surgical History Bilateral knee surgery (arthroscopic) Bilateral cataract removal Tonsillectomy Family History Father side is unknown because his father is estranged Mother had esophageal cancer, maternal grandfather pancreatic cancer, and 3 brothers with prostate cancer Social History Hx Alcohol Use: Yes (rare) Hx Substance Use: No Hx Tobacco Use: Yes (quit in 1959) Smoking Status: Former Smoker Exam Vital Signs Vital Sign - Last Date Time Temp Pulse Resp B/P Pulse Ox O2 Delivery O2 Flow Rate FiO2 12/17/16 12:35 36.4 95 18 155/85 96 Room Air Exam General/Constitutional: Uncomfortable Head / Eyes: Atraumatic, Normocephalic, PERRL ENT: Mucous membranes moist, Conjunctiva normal, No scleral icterus Neck: Supple, Non-tender, Full range of motion Respiratory: Breath sounds normal, Clear to auscultation, No respiratory distress Cardiovascular: Regular rate & rhythm, Heart sounds normal, Intact distal pulses Abdomen / GI: Soft, Non-tender, No guarding, No rebound, No distention Back: No CVA tenderness Skin: Warm, Dry, No cyanosis Neurologic: Alert, Oriented, Nonfocal Psychiatric: Mood/affect normal, Behavior normal, Normal thought content Lab and Diagnostics Result Diagram: 12/17/1680212/17/16802 Assessment & Plan # Deconditioning 2/2 AML -generalized weakness, progressively worsening, pain -Dr Rosen from oncology was consulted from ER , recs: Specifically, the patient's AML treatments included hypomethylating agents such as azacitidine. Benefits would be improvement in overall survival from 3-6 months. Precluding the patient's treatment, however, is his performance status and his ELN prognostic workup. The patient's performance status is currently 4, with a Karnofsky performance status of 40%. His performance status, therefore, precludes his ability to tolerate and benefit from low-dose AML therapies. Therefore, it was recommend that the patient move into hospice services - Hospice consulted - transfuse blood products as needed before hospice # Leukocytosis - likely 2/2 to AML +/- dehydration component - will hydrate # Pain - 2/2 tumor burden - dilaudid 1mg q4H # Nausea +/- Vomiting - 2/2 pain - zofran and reglan prn # Acute urinary retention -Had urinary retention >1L on 12/08/16 and Matt placed. Flomax started -Failed voiding trial on 12/11 -Matt cath was reinserted and noted to have hematuria likely due to traumatic Matt placement -Will be discharged home with home nursing and recommendation to followup with PCP in 2-3 days to ensure resolution or referral to urology as outpatient. # Diabetes mellitus. Poorly controlled as per last admission -Recent HgA1C 9.6 -Home insulin Lantus 18-20 units at bedtime. # Chronic anemia, thrombocytopenia, with MDS, POA, worsened from baseline -will monitor in house - no signs of bleeding - transfuse as needed # Hypertension -Resumed lisinopril 12/08 # Hyperlipidemia. Stable. # Gastroesophageal reflux disease. Stable DVT Prophylaxis : SCD for now because of thrombocytopenia Time spent 60 mins Daniel Betts MD Dec 17, 2016 16:08
[2016-12-17] MEDS: Insulin GLARgine 100 Unit/mL Syringe SUBQ SCH (21:00)
[2016-12-18] MEDS: 0.9% Sodium Chloride 1,000 ML IV SCH ×4 (00:47→15:41)
[2016-12-18 04:03] VITALS: BP 163/79; PULSE 100; RESP 16; O2SAT 93
[2016-12-18] MEDS: HYDROmorphone 1 mg/mL Inj IVPUSH PRN ×2 (04:04→08:12)
[2016-12-18 05:33] LABS: Mean Corpuscular Volume 95.4 fL (81-100)
[2016-12-18] MEDS ORDERED: levoFLOXacin 750 mg Tablet PO SCH (07:30)
[2016-12-18 08:05] VITALS: BP 144/72; PULSE 106; RESP 20
[2016-12-18] MEDS ORDERED: Lisinopril 40 Tablet PO SCH (08:30)
[2016-12-18 08:33] VITALS: BP 154/80; PULSE 100; RESP 18; O2SAT 92
--- NOTE | 2016-12-18 12:29 | PCM.PNMED ---
Subjective Date of Service Dec 18, 2016 Subjective Patient seen and examined today. He said he feels much better. Pain is controlled. Vitals stable. Exam Vital Signs Vital Sign - Last Date Time Temp Pulse Resp B/P Pulse Ox O2 Delivery O2 Flow Rate FiO2 12/18/16 08:33 36.8 100 18 154/80 92 Room Air Intake and Output 12/17/16 12/17/16 12/18/16 Cumulative From/Thru 15:00 23:00 07:00 12/17/16 07:20 - 12/18/16 06:23 Intake Total 1000 ml 636 ml 650 ml 2286 ml Output Total 600 ml 550 ml 1150 ml Balance 1000 ml 36 ml 100 ml 1136 ml Intake Oral 100 ml 650 ml 750 ml IV Total 1000 ml 536 ml 1536 ml Output Urine Total 600 ml 550 ml 1150 ml # Bowel Movements 0 0 Exam General/Constitutional: Alert and oriented X 4, comfortable Head / Eyes: Atraumatic, Normocephalic, PERRL ENT: Mucous membranes moist, Conjunctiva normal, No scleral icterus Neck: Supple, Non-tender, Full range of motion Respiratory: Breath sounds normal, Clear to auscultation, No respiratory distress Cardiovascular: Regular rate & rhythm, Heart sounds normal, Intact distal pulses Abdomen / GI: Soft, Non-tender, No guarding, No rebound, No distention Back: No CVA tenderness Skin: Warm, Dry, No cyanosis Neurologic: Alert, Oriented, Nonfocal Psychiatric: Mood/affect normal, Behavior normal, Normal thought content Lab and Diagnostics Result Diagram: 12/18/16 0500 12/18/16 0500 Assessment & Plan # Deconditioning 2/2 AML -generalized weakness, progressively worsening, pain -Dr Rosen from oncology was consulted from ER , recs: Specifically, the patient's AML treatments included hypomethylating agents such as azacitidine. Benefits would be improvement in overall survival from 3-6 months. Precluding the patient's treatment, however, is his performance status and his ELN prognostic workup. The patient's performance status is currently 4, with a Karnofsky performance status of 40%. His performance status, therefore, precludes his ability to tolerate and benefit from low-dose AML therapies. Therefore, it was recommend that the patient move into hospice services - Hospice consulted, on board # Anemia and Thrombocytopenia - likely 2/2 MDS and AML - transfused RBCs and Platelets - will monitor CBC # Leukocytosis - likely 2/2 to AML +/- dehydration component - will hydrate # Pain - 2/2 tumor burden - in control with current management # Nausea +/- Vomiting - 2/2 pain - zofran and reglan prn # Diabetes mellitus. Poorly controlled as per last admission -Recent HgA1C 9.6 -Home insulin Lantus 18-20 units at bedtime. # Chronic anemia, thrombocytopenia, with MDS, POA, worsened from baseline -will monitor in house - no signs of bleeding - transfuse as needed # Hypertension -Resumed lisinopril 12/08 # Hyperlipidemia. Stable. # Gastroesophageal reflux disease. Stable DVT Prophylaxis : SCD for now because of thrombocytopenia Dispo, pending improvement, correction of anemia and thrombocytopenia. Home likely. Pain Evaluation: Adequate Pain Control Daniel Betts MD Dec 18, 2016 12:29
[2016-12-18 13:27] VITALS: BP 167/81; PULSE 94; RESP 16; O2SAT 92
[2016-12-18 14:13] LABS: BASOPHILS % (AUTO) 0.2 % (0-3); Mean Corpuscular Hemoglobin 30.9 pg (27.0-35.0); Mean Corpuscular Volume 93.1 fL (81-100); Platelet Count 57 bil/L (150-400)
[2016-12-18 14:41] LABS: NEUTROPHILS % (AUTO) 7 % (40-74)
[2016-12-18 14:42] LABS: EOSINOPHILS % (AUTO) 1 % (0-5); MONOCYTES % (AUTO) 0 % (4-12)
[2016-12-18] MEDS: Ondansetron 2 mg/mL 2 mL Inj IVPUSH PRN (17:00)
[2016-12-18 21:13] VITALS: BP 115/89; PULSE 104; RESP 20; O2SAT 95
[2016-12-18] MEDS: Insulin GLARgine 100 Unit/mL Syringe SUBQ SCH (21:31)
[2016-12-19 04:37] VITALS: BP 170/80; PULSE 105; RESP 18; O2SAT 93
[2016-12-19 05:37] LABS: Mean Corpuscular Hemoglobin 30.5 pg (27.0-35.0); Mean Corpuscular Volume 91.9 fL (81-100)
[2016-12-19] MEDS: Morphine ER 30 mg (MS Contin) Tablet PO SCH ×2 (08:04→22:01)
[2016-12-19 13:27] VITALS: BP 164/82; PULSE 101; RESP 18; O2SAT 92
--- NOTE | 2016-12-19 13:51 | PCM.PNMED ---
Subjective Date of Service Dec 19, 2016 Subjective Patient seen and examined today. Said he does not feel pain now. Does feel constipated. Vitals stable. Exam Vital Signs Vital Sign - Last Date Time Temp Pulse Resp B/P Pulse Ox O2 Delivery O2 Flow Rate FiO2 12/19/16 13:27 36.4 101 18 164/82 92 Room Air Intake and Output 12/18/16 12/18/16 12/19/16 Cumulative From/Thru 15:00 23:00 07:00 12/17/16 07:20 - 12/19/16 06:04 Intake Total 1207 ml 1111 ml 100 ml 4704 ml Output Total 800 ml 450 ml 2400 ml Balance 1207 ml 311 ml -350 ml 2304 ml Intake Oral 750 ml 100 ml 1600 ml IV Total 913 ml 361 ml 2810 ml Packed Cells 294 ml 294 ml Output Urine Total 800 ml 450 ml 2400 ml # Bowel Movements 0 0 Exam General/Constitutional: Alert and oriented X 4, comfortable Head / Eyes: Atraumatic, Normocephalic, PERRL ENT: Mucous membranes moist, Conjunctiva normal, No scleral icterus Neck: Supple, Non-tender, Full range of motion Respiratory: Breath sounds normal, Clear to auscultation, No respiratory distress Cardiovascular: Regular rate & rhythm, Heart sounds normal, Intact distal pulses Abdomen / GI: Soft, Non-tender, No guarding, No rebound, No distention Back: No CVA tenderness Skin: Warm, Dry, No cyanosis Neurologic: Alert, Oriented, Nonfocal Psychiatric: Mood/affect normal, Behavior normal, Normal thought content Lab and Diagnostics Result Diagram: 12/19/16 0500 12/19/16 0500 Assessment & Plan # Deconditioning 2/2 AML -generalized weakness, progressively worsening, pain -Dr Rosen from oncology was consulted from ER , recs: Specifically, the patient's AML treatments included hypomethylating agents such as azacitidine. Benefits would be improvement in overall survival from 3-6 months. Precluding the patient's treatment, however, is his performance status and his ELN prognostic workup. The patient's performance status is currently 4, with a Karnofsky performance status of 40%. His performance status, therefore, precludes his ability to tolerate and benefit from low-dose AML therapies. Therefore, it was recommend that the patient move into hospice services - Hospice consulted, on board, # Anemia and Thrombocytopenia - likely 2/2 MDS and AML - transfused RBCs and Platelets - will monitor CBC # Leukocytosis - likely 2/2 to AML +/- dehydration component - will hydrate # Pain - 2/2 tumor burden - in control with iv dilaudid - will try switching to long acting morphine # Nausea +/- Vomiting - 2/2 pain - zofran and reglan prn # Diabetes mellitus. Poorly controlled as per last admission -Recent HgA1C 9.6 -Home insulin Lantus 18-20 units at bedtime. # Chronic anemia, thrombocytopenia, with MDS, POA, worsened from baseline -will monitor in house - no signs of bleeding - transfuse as needed # Hypertension -Resumed lisinopril 12/08 -added amlodipine 10mg - will monitor , Goal : <150/90 # Hyperlipidemia. Stable. # Gastroesophageal reflux disease. Stable DVT Prophylaxis : SCD for now because of thrombocytopenia Dispo, pending improvement, correction of anemia and thrombocytopenia. Home with hospice tomorrow. Daniel Betts MD Dec 19, 2016 13:51
[2016-12-19 20:06] VITALS: BP 172/72; PULSE 97; RESP 18; O2SAT 90
[2016-12-19 20:09] VITALS: RESP 18; O2SAT 94
[2016-12-19] MEDS: Insulin GLARgine 100 Unit/mL Syringe SUBQ SCH (22:03)
[2016-12-20 05:08] VITALS: BP 141/69; PULSE 91; RESP 18; O2SAT 91
[2016-12-20 05:38] LABS: Mean Corpuscular Hemoglobin 30.7 pg (27.0-35.0)
--- NOTE | 2016-12-20 08:47 | PCM.DIMED ---
Discharge Instructions Date of Service Dec 20, 2016 Dates of Hospitalization Dec 17, 2016 at 11:27 Discharge Diagnosis Discharge Diagnosis AML, thrombocytopenia Diet Discharge Diet: No restrictions Activity Discharge Activity: Other (Hospice) Patient Instructions Follow-up plan Followed up by hospice team. Daniel Betts MD Dec 20, 2016 08:47
[2016-12-20] MEDS ORDERED: ONDA4VIA27 IVPUSH (08:52)
[2016-12-20] MEDS ORDERED: MORP-33 PO (08:52)
[2016-12-20] MEDS ORDERED: HYDR1DIS3 IVPUSH (08:52)
[2016-12-20] MEDS ORDERED: Acetaminophen PO (08:52)
[2016-12-20] MEDS ORDERED: METO5VIA3 IVPUSH (08:52)
[2016-12-20] MEDS: Morphine ER 30 mg (MS Contin) Tablet PO SCH (09:21)
[2016-12-20] MEDS ORDERED: 0.9% Sodium Chloride 100 ML ONE (09:47)
[2016-12-20 10:04] VITALS: BP 126/68; PULSE 98; RESP 20
[2016-12-20 10:20] VITALS: BP 138/74; PULSE 96; RESP 16
[2016-12-20] MEDS ORDERED: METO5TAB78 PO (10:21)
[2016-12-20] MEDS ORDERED: ONDA4TAB6 PO (10:21)
--- NOTE | 2016-12-20 14:41 | PCM.DC.MED ---
Discharge Summary Date of Service Dec 20, 2016 Dates of Hospitalization Date of Hospital Admission Dec 17, 2016 at 11:27 Date of Discharge: Dec 20, 2016 Providers: Admitting Physician: Sarwat Palacios MD Primary Care Physician: Enrique Macedo MD Attending Physician: Sarwat Palacios MD Diagnosis at Time of Discharge Diagnosis at Time of Discharge AML, thrombocytopenia Brief History 81-year-old male with a past medical history of arthritis, pancreatitis, BPH, and a recent diagnosis of AML, presents today with excessive back pain. The patient was scheduled for a confirmatory bone marrow biopsy this morning, however was unable to attend this appointment due to increasing back pain. Patient has been in the hospital multiple times in the last 2-3 months. Previous admissions have been for loss of blood for which he was given blood transfusions as well as platelet transfusions. The patient was admitted was 2 weeks ago and stayed in the hospital for a full week. During his stay he was treated for a UTI using Levaquin, and a urinary catheter was placed at that time. Upon discharge from the hospital he was found to have urinary retention was sent home on urinary catheter. Discharge date was 12/11 and the catheter has not been replaced since that time. This morning he complains of low back pain 10/10 does not radiate. Patient was given 5 mg of oxycodone this morning and this did not alleviate his pain. He is not able to pinpoint anything that makes his pain better or worse. Family states at this level of pain is not typical for him. They state that he has had a herniated disc diagnosed many years ago and this is the last time they had seen him in that much pain. He is being admitted for pain control, management, and possible hospice. Hospital Course # Deconditioning 2/2 AML -generalized weakness, progressively worsening, pain -Dr Rosen from oncology was consulted from ER , recs: Specifically, the patient's AML treatments included hypomethylating agents such as azacitidine. Benefits would be improvement in overall survival from 3-6 months. Precluding the patient's treatment, however, is his performance status and his ELN prognostic workup. The patient's performance status is currently 4, with a Karnofsky performance status of 40%. His performance status, therefore, precludes his ability to tolerate and benefit from low-dose AML therapies. Therefore, it was recommend that the patient move into hospice services - Hospice consulted, patient and family agreed with home hospice # Anemia and Thrombocytopenia - likely 2/2 MDS and AML - transfused RBCs and Platelets as needed # Leukocytosis - likely 2/2 to AML +/- dehydration component # Pain - 2/2 tumor burden - in control with the long acting morphine, will continue on dc # Nausea +/- Vomiting - 2/2 pain - zofran and reglan prn # Diabetes mellitus. Poorly controlled as per last admission -Recent HgA1C 9.6 -Home insulin Lantus 18-20 units at bedtime. # Chronic anemia, thrombocytopenia, with MDS, POA, worsened from baseline - no signs of bleeding - transfused as needed # Hypertension -Resumed lisinopril 12/08 -added amlodipine 10mg - Goal : <150/90 # Hyperlipidemia. Stable. # Gastroesophageal reflux disease. Stable Exam Vital Signs (Last) Date Time Temp Pulse Resp B/P Pulse Ox O2 Delivery O2 Flow Rate FiO2 12/20/16 10:20 36.7 96 16 138/74 12/20/16 05:13 Supplement Oxygen 12/20/16 05:08 91 1.00 Test 12/17/16 08:03 12/17/16 08:27 12/17/16 09:44 12/18/16 13:53 Magnesium Level 1.7mg/dL (1.6-2.6) Total Bilirubin 0.5mg/dL (0.0-1.2) Aspartate Amino Transf (AST/SGOT) 73U/L (0-50) Alanine Aminotransferase (ALT/SGPT) 75U/L (0-44) Alkaline Phosphatase 433U/L (25-160) Total Protein 6.2g/dL (6.4-8.4) Albumin 3.2g/dL (3.4-5.0) Lipase 31U/L (13-60) Lactic Acid Level 3.2mmol/L (0.4-2.0) Urine Color Yellow (YELLOW) Urine Appearance Clear (CLEAR,HAZY) Urine pH 5.5 (5.0-8.0) Urine Specific Hugo 1.005 (1.003-1.035) Urine Protein Tracemg/dL (NEG,TRACE) Urine Glucose (UA) Negativemg/dL (NEGATIVE) Urine Ketones Negativemg/dL (NEGATIVE) Urine Occult Blood Small (NEGATIVE) Urine Nitrite Negative (NEGATIVE) Urine Bilirubin Negative (NEGATIVE) Urine Urobilinogen Normalmg/dL (NORMAL) Urine Leukocyte Esterase Negative (NEGATIVE) Urine RBC 3-10/hpf (0-2) Urine WBC 0-5/hpf (0-5) Urine Epithelial Cells Occasional/hpf (NONE-MOD) Urine Crystals None seen (NONE SEEN) Urine Bacteria Few/hpf (NONE-FEW) Urine Hyaline Casts >20/lpf (NONE) Urine Granular Casts None seen (NONE SEEN) Urine Waxy Casts None seen (NONE SEEN) Urine Red Blood Cell Casts None seen (NONE SEEN) Urine White Blood Cell Casts None seen (NONE SEEN) Urine Mucus Present (None Seen) Urine Trichomonas None seen (NONE SEEN) Urine Yeast None (NONE SEEN) Urinalysis Comment None Urine Culture Reflexed Not indicated Neutrophils (%) (Auto) 7% (40-74) Lymphocytes (%) (Auto) 89% (14-46) Monocytes (%) (Auto) 0% (4-12) Eosinophils (%) (Auto) 1% (0-5) Basophils (%) (Auto) 0.2% (0-3) Band Neutrophils % 4% (1-5) Test 12/20/16 05:02 White Blood Count 27.1th/mm3 (3.8-10.1) Red Blood Count 2.57mil/mm3 (4.40-5.80) Hemoglobin 7.9g/dL (13.8-17.2) Hematocrit 23.9% (41.0-50.0) Mean Corpuscular Volume 93fL (81-100) Mean Corpuscular Hemoglobin 30.7pg (27.0-35.0) Mean Corpuscular Hemoglobin Concent 33.1% (32.0-37.0) Red Cell Distribution Width 15.4% (12.3-15.4) Platelet Count 31bil/L (150-400) Sodium Level 137mEq/L (134-144) Potassium Level 3.8mEq/L (3.5-5.2) Chloride Level 102mEq/L (97-108) Carbon Dioxide Level 22mmol/L (18-29) Blood Urea Nitrogen 19mg/dL (8-27) Creatinine 0.94mg/dL (0.76-1.27) Estimat Glomerular Filtration Rate 81mL/min (>59) Glucose Level 78mg/dL (60-99) Calcium Level 7.8mg/dL (8.5-10.1) Discharge Medications Discharge Medications Amlodipine (Amlodipine) 5 Mg Tablet 5 MG PO DAILY Prescribed by: PASTORA DIOR MD Insulin Glargine (Lantus U100 Insulin Vial) 100 Unit/Ml Vial 18-25 UNIT SUBQ HS (Reported) ALTERNATING 18 UNITS W/ 25 UNITS DUE TO HIGH BGS Levofloxacin (Levaquin) 750 Mg Tablet 750 MG PO DAILYAC Prescribed by: PASTORA DIOR MD Lisinopril (Lisinopril) 40 Mg Tablet 40 MG PO QAM (Reported) Melatonin (Melatonin) 3 Mg Tablet 3 MG PO HS (Reported) Morphine Sulfate ER (Morphine Sulfate ER) 30 Mg Tablet 30 MG PO BID Prescribed by: SARWAT PALACIOS MD Tamsulosin (Flomax) 0.4 Mg Capsule 0.4 MG PO DAILY Prescribed by: PASTORA DIOR MD As needed ([Acetaminophen]) 325 MG TABLET 975 MG PO Q6H PRN PRN For Pain Prescribed by: SARWAT PALACIOS MD Docusate Sodium (Colace) 100 Mg Capsule 100 MG PO BID PRN PRN For Constipation Prescribed by: PASTORA DIOR MD Metoclopramide (Reglan) 5 Mg Tablet 5 MG PO QID PRN PRN For Nausea Prescribed by: SARWAT PALACIOS MD Nitroglycerin SL (Nitrostat) 0.4 Mg Tab.subl 0.4 MG SL Q5MIN PRN PRN For Chest Pain Take one every 5 minutes for a maximum of 3 times for chest pain Prescribed by: HUSSEIN CLAIRE DO Ondansetron (Zofran) 4 Mg Tablet 4 MG PO Q4H PRN PRN For Nausea Prescribed by: SARWAT PALACIOS MD Sennosides (Senna) 8.6 Mg Tablet 8.6 MG PO BID PRN PRN For Constipation Prescribed by: PASTORA DIOR MD Followup Plan Disposition: Home with hospice Follow-up plan Followed up by hospice team. Discharge Diet: No restrictions Discharge Activity: Other (Hospice) Time spent 45 mins Sarwat Palacios MD Dec 20, 2016 14:41
== END 2016-12-20 11:56 | disposition hospice, home (50) | DRG 836 ==
LOC: SED 07:09 → MPC 11:27
PROVIDERS: ADMIT Internal Medicine; ATTEND Internal Medicine
PROC: 30233R1 Transfusion of Nonautologous Platelets into Peripheral Vein, Percutaneous Approach (ICD-10-PCS; principal; 2016-12-18)
PROC: 30233N1 Transfusion of Nonautologous Red Blood Cells into Peripheral Vein, Percutaneous Approach (ICD-10-PCS; 2016-12-18)
PROC: 30233R1 Transfusion of Nonautologous Platelets into Peripheral Vein, Percutaneous Approach (ICD-10-PCS; 2016-12-20)
DX: C92.00 Acute myeloblastic leukemia, not having achieved remission (principal); D46.9 Myelodysplastic syndrome, unspecified; G89.3 Neoplasm related pain (acute) (chronic); Z51.5 Encounter for palliative care; D63.0 Anemia in neoplastic disease; D69.6 Thrombocytopenia, unspecified; E78.5 Hyperlipidemia, unspecified; N40.0 Benign prostatic hyperplasia without lower urinary tract symptoms; E78.00 Pure hypercholesterolemia, unspecified; I25.10 Atherosclerotic heart disease of native coronary artery without angina pectoris; E11.9 Type 2 diabetes mellitus without complications; E86.0 Dehydration; I10 Essential (primary) hypertension; K21.9 Gastro-esophageal reflux disease without esophagitis; Z87.440 Personal history of urinary (tract) infections; Z79.4 Long term (current) use of insulin; Z79.82 Long term (current) use of aspirin